=== PATIENT | male | born 1930 | race Caucasian/White ===

== ENCOUNTER 2016-10-20 14:25 | Inpatient (IN) ==
[2016-10-20] MEDS ORDERED: DILTIAZEM 50 MG/10 ML VIAL IV STA (15:15)
--- NOTE | 2016-10-20 15:23 | Emergency Department Note ---
Prabhakar Sharma Brooke, am scribing for, and in the presence of, Blake Mejia MD 15:18 . Jackie Sharma James D, MD, personally performed the services described in this documentation, ascribed by Deja Radford in my presence, and it is both accurate and complete 521 . Arrival - Arrival Chief Complaint: Arrhythmia/Palpitations Stated Complaint: heart ED Nursing Triage Note: family reports pt feels like heart is racing and just not feeling well. recently had meds changed around because hr was out of rhythm Mode of Arrival: Wheelchair Limitations: No Limitations Source: Patient, Significant other (), RN Notes Reviewed Time Seen by Provider: 10/20/16 15:10 - History of Present Illness HPI Narrative: Patient is a 86 year old male who presents to the ED with c/o heart racing that started this morning. Patient is a poor historian. says Patient was getting ready for voodoo this morning and said that he felt weak. says Dr. Mittal told them to discontinue the Lisinopril and to half the dose on the Metoprolol. Patient has not been complaining of any chest pain but has been short of breath. Patient has an appointment with Dr. Rodriguez on October 30. Patient has PMHx of HTN, Afib, and dementia. Onset (ago): hour(s) (8-10) Allergies/Adverse Reactions: Allergies Allergy/AdvReac Type Severity Reaction Status Date / Time No Known Allergies Allergy Unverified 10/20/16 14:59 Home Medications: Home Medications Medication Instructions Recorded Confirmed Type ACETAMIN/diphenhydrAMIN 500-25 2 tablet PO BEDTIME 10/20/16 10/20/16 History [Tylenol PM] Aspirin [Ecotrin] 81 mg PO DAILY 10/20/16 10/20/16 History Atorvastatin [Lipitor] 10 mg PO DAILY 10/20/16 10/20/16 History Cyanocobalamin Inj [Vitamin B12 1,000 mcg IM Q30D 10/20/16 10/20/16 History Inj] Dabigatran [Pradaxa] 150 mg PO BID 10/20/16 10/20/16 History Levothyroxine Tab [Synthroid Tab] 75 mcg PO DAILY 10/20/16 10/20/16 History Memantine [Namenda] 10 mg PO BID 10/20/16 10/20/16 History Metoprolol Tartrate Tab [Lopressor 25 mg PO BEDTIME 10/20/16 10/20/16 History Tab] Metoprolol Tartrate Tab [Lopressor 25 mg PO QAM 10/20/16 10/20/16 History Tab] [place]-3S/Dha/Epa/Fish Oil [Fish 1 each PO DAILY 10/20/16 10/20/16 History Oil 1,200 mg Softgel] Rivastigmine Tartrate 1.5 mg PO BID 10/20/16 10/20/16 History [Rivastigmine] Tamsulosin HCl 0.4 mg PO DAILY 10/20/16 10/20/16 History Timolol 0.5% Oph Soln [Timoptic 1 drop BOTH EYES DAILY 10/20/16 10/20/16 History 0.5%] Review of System - Review of System 12 point system: reviewed and no additional remarkable complaints except as stated - Review of System Constitutional: Absent: fever Respiratory: Present: other (SOB). Absent: respiratory distress Cardiovascular: Present: palpitations (racing). Absent: chest pain Skin: Absent: rash Neurological: Present: weakness (generalized) Medical,Surgical,& Family Hx - Medical History Cardio: History of: Cardiac Dysrhythmia (a-fib), Hypertension Neurology: History of: Dementia - Social History Smoking Status: Never smoker Exam Vital Signs: Vital Signs Temperature 97.4 F L 10/20/16 14:53 Pulse Rate 121 H 10/20/16 14:53 Respiratory Rate 20 10/20/16 14:53 Blood Pressure 125/61 10/20/16 14:53 O2 Sat by Pulse Oximetry 95 10/20/16 14:53 GENERAL: This is a chronically ill-appearing white male in no apparent distress. VITAL SIGNS: Reviewed HEENT: Head is atraumatic and normocephalic. Pupils are equal round react to light. Extraocular movements are intact. Oropharynx is benign with moist mucous membranes. NECK: Neck is soft and supple without tenderness. There are no masses. There is no lymphadenopathy. LUNGS: Lungs are clear to auscultation. Chest rises symmetrically. There is no chest wall tenderness. CV: Heart is irregularly irregular with rapid rate, without murmurs rubs or gallops. ABDOMEN: Abdomen is soft, nontender to palpation. There are no abdominal abnormal masses palpated. There is no organomegaly. Bowel sounds are present and active. SKIN: Skin is warm and dry. No rash. EXTREMITIES: Patient has full range of motion without tenderness. There is no pedal edema. NEUROLOGIC: Awake and alert. Cranial nerves II through XII are grossly intact. Motor is 4 over 5 in all extremities bilaterally. Course Course Narrative: Patient was started on Cardizem bolus and infusion while in the emergency department. Results - Labs CBC & BMP: 10/20/16 15:22 Lab Results: I have reviewed the patients labs - EKG EKG results: interpreted by ERMD - Impressions EKG: Atrial fib with RVR, rate 146, nonspecific ST-T wave changes. - Diagnostic Findings Procedure: Chest x-ray: image reviewed by me (Increased pulmonary markings bilaterally. Small left pleural effusion.) Disposition Clinical Impression: Atrial fibrillation with RVR, Essential hypertension, Sick sinus syndrome, Dementia Case discussed with: patient, patient's family Disposition: Still a Patient Condition: Stable Time of Disposition: 15:48
[2016-10-20] MEDS ORDERED: DILTIAZEM 100 MG VIAL.ADD IV ONE (15:28)
[2016-10-20] MEDS ORDERED: SODIUM CHLORIDE 0.9% 100 ML IV ONE (15:28)
[2016-10-20] MEDS ORDERED: DILTIAZEM 50 MG/10 ML VIAL IV ONE (15:28)
[2016-10-20 15:32] LABS: Basophils % 0.3 % (0.0-0.8); Eosinophils # 0.2 10*3/uL (0.0-0.87); Eosinophils % 1.6 % (0.00-10.9); Hematocrit 35.3 VOL% (42.0-52.0); Hemoglobin 11.7 GM/DL (14.0-18.0); Immature Granulocytes % 0.4 %; Immature Granulocytes Absolute 0.04 #; Lymphocytes # 2.8 10*3/uL (1.4-4.0); Lymphocytes % 28.5 % (21.2-54.2); Mean Corpuscular HGB Conc 33.1 GM/DL (32-36); Mean Corpuscular Hemoglobin 34 PG (27-34); Mean Corpuscular Volume 102.6 FL (87-102); Mean Platelet Volume 9.6 FL (9.6-12.0); Monocytes # 0.5 10*3/uL (0.11-0.8); Monocytes % 5.3 % (1.7-12.7); Neutrophils # 6.3 10*3/uL (1.4-7.4); Neutrophils % 63.9 % (38.7-73.9); Platelet Count 200 T/CUMM (130-400); Red Blood Count 3.44 MC/CUMM (3.8-5.5); White Blood Count 9.9 T/CUMM (4-12)
[2016-10-20] MEDS: DILTIAZEM INJ 100 MG in SODIUM CHLORIDE 0.9% 100 ML IV SCH ×3 (15:40→22:48)
--- NOTE | 2016-10-20 15:40 | XRay Report ---
Portable chest Date: 10/20/2016 Clinical history: Shortness of breath Comparison: 05/01/2014 Technique: Portable AP sitting chest Findings: The heart is minimally enlarged with calcification in the aortic knob. Persistent relative elevation of the right hemidiaphragm with chronic scarring. Residual diffuse density at the left lung base. Stable mediastinum with degenerative changes. Impression: Residual scarring in the lungs with atelectasis/edema/infiltration at the left lung base with small left pleural effusion. PROCEDURE INTERPRETED AT [facility] DEPARTMENT OF RADIOLOGY Final Report Signed by: Dr. Diana Flores
[2016-10-20 15:43] LABS: INR 1.3; Partial Thromboplastin Time 37.6 SECS (0-40)
[2016-10-20 16:15] LABS: Free T4 (Free Thyroxine) 1.5 NG/DL (0.76-1.46); Magnesium 2.4 MG/DL (1.8-2.4)
[2016-10-20 16:20] LABS: Albumin 3.1 G/DL (3.4-5.0); Bilirubin,Total 0.8 MG/DL (0.2-1.0); Calcium 8.7 MG/DL (8.5-10.1); Osmolality,Calculated 273.8 MOS/KG (273-304); Potassium 4.2 MMOL/L (3.5-5.1); Thyroid Stimulating Hormone 1.56 uIU/ml (0.358-3.74); Total Protein 7.3 G/DL (6.4-8.3); Troponin I Only 0.017 NG/ML (0.00-0.045)
--- NOTE | 2016-10-20 18:57 | Cardiology History & Physical ---
History of Present Illness History of present illness: Cardiology history and physical 86-year-old man was getting ready for yazdanism today when he became weak and short of breath and felt a popping sensation in his chest. called the home health nurse. She reports his heart rate was 150 and he came to the ER for evaluation. The patient does have chronic atrial fibrillation and his pulse was 140 in the ER. He has been given a bolus of Cardizem and placed on a Cardizem infusion. The chest x-ray shows cardiomegaly with a calcified aortic knob with a elevated right hemidiaphragm which is chronic and atelectasis and a small effusion left base. No chest pain. The patient has chronic atrial fibrillation and was seen by Dr. Rodriguez October with bradycardia and hypotension. At that time he has heart rate was in the 40s and his blood pressure was 92/50. His metoprolol dose was decreased to 25 mg twice daily. He now returns today with atrial fib and ventricular rate of 140-150. He takes Pradaxa for chronic anticoagulation. He has had no Pradaxa today. He does have chronic hypertension. No history of stroke. No history of diabetes. 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 He does have a history of prostate cancer. He also history of kidney stones. He has a history of pernicious anemia. Hemoglobin 11.7 MCV 103 today. 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 Status post LAD stent September 29, 2005. He had a normal exercise Cardiolite stress test March 14, 2014 EF 57%. 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 John Barfield. The patient has dementia and is getting more forgetful and confused but he is always quite pleasant. The patient lives in [place] with his Rosemarie. His daughter Ada is here in the emergency room and lives in [facility]. Initial lab data White count 9.9 hemoglobin 11.7 hematocrit 35.3 MCV 103 INR 1.3 Pro time 14.0 Sodium 137 potassium 4.2 chloride 103 CO2 27 free T4 1.50 troponin 0.017 Blood pressure 118/70 pulse is atrial fib and rate 120-130 O2 sat 95% on 2 L cannula Vital arcus. No xanthelasma. Hard of hearing but quite pleasant. Left carotid bruit. Irregular with him. Soft systolic murmur. Decreased breath sounds but clear. Abdomen soft benign. Femoral pulses are 2+ with faint bilateral bruits distal pulses 1+ no edema Impression Chronic atrial fibrillation with symptomatic tachycardia and bradycardia components. Metoprolol dose was decreased October 30, 2016 in the office by Dr. Rodriguez for slow heart rate in the 40s and blood pressure 90/50. Today his pulse is 140-150 and he is short of breath and weak. Patient needs a VVI pacemaker for backup rate support and a beta-bertrand to control his ventricular high rates. This has been discussed with the patient and with his Rosemarie and with his daughter Ada. All questions answered and they agree to proceed tomorrow Chronic hypertension Dementia Pernicious anemia Status post inferior NV with RCA stent November 15, 2005 Status post LAD stent September 29, 2005 Normal exercise cardiac stress test March 14, 2014 EF 57% GE reflux Chronic anticoagulation with Pradaxa. 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 John Barfield. Plan Admit to telemetry Continue IV Cardizem and watch rhythm closely VVI pacemaker tomorrow Holding Pradaxa Echo Doppler Findings and plan discussed with patient and his Rosemarie and his daughter Ada. All questions answered. They agree to proceed as outlined. Home Medications Medication Instructions Recorded Confirmed Type ACETAMIN/diphenhydrAMIN 500-25 2 tablet PO BEDTIME 10/20/16 10/20/16 History [Tylenol PM] Aspirin [Ecotrin] 81 mg PO DAILY 10/20/16 10/20/16 History Atorvastatin [Lipitor] 10 mg PO DAILY 10/20/16 10/20/16 History Cyanocobalamin Inj [Vitamin B12 1,000 mcg IM Q30D 10/20/16 10/20/16 History Inj] Dabigatran [Pradaxa] 150 mg PO BID 10/20/16 10/20/16 History Levothyroxine Tab [Synthroid Tab] 75 mcg PO DAILY 10/20/16 10/20/16 History Memantine [Namenda] 10 mg PO BID 10/20/16 10/20/16 History Metoprolol Tartrate Tab [Lopressor 25 mg PO BEDTIME 10/20/16 10/20/16 History Tab] Metoprolol Tartrate Tab [Lopressor 25 mg PO QAM 10/20/16 10/20/16 History Tab] [place]-3S/Dha/Epa/Fish Oil [Fish 1 each PO DAILY 10/20/16 10/20/16 History Oil 1,200 mg Softgel] Rivastigmine Tartrate 1.5 mg PO BID 10/20/16 10/20/16 History [Rivastigmine] Tamsulosin HCl 0.4 mg PO DAILY 10/20/16 10/20/16 History Timolol 0.5% Oph Soln [Timoptic 1 drop BOTH EYES DAILY 10/20/16 10/20/16 History 0.5%] Allergies Allergy/AdvReac Type Severity Reaction Status Date / Time No Known Allergies Allergy Unverified 10/20/16 14:59 Medical,Surgical,& Family Hx - Medical History Cardio: History of: Cardiac Dysrhythmia (a-fib), Hypertension Neurology: History of: Dementia - Social History Smoking Status: Never smoker Cardiology Physical Exam - Constitutional Vitals: Vital Signs Temp Pulse Resp BP Pulse Ox 97.4 F L 133 H 20 125/61 95 10/20/16 14:53 10/20/16 16:30 10/20/16 14:53 10/20/16 14:53 10/20/16 14:53 Result/EKG - Labs CBC & BMP: 10/20/16 15:22 10/20/16 15:22
[2016-10-20] MEDS ORDERED: MAGNESIUM SULF RIDER 2 GM in PREMIX 1 EACH IV PRN (19:19)
[2016-10-20] MEDS ORDERED: MAGNESIUM SULF RIDER 4 GM in PREMIX 1 EACH IV PRN (19:19)
[2016-10-20] MEDS: ENOXAPARIN 40 MG/0.4 ML SYRINGE SUBCUT SCH (22:28)
[2016-10-20] MEDS: diphenhydrAMINE CAP 25 MG CAPSULE PO SCH (22:28)
[2016-10-20] MEDS: RIVASTIGMINE 1.5 MG CAPSULE PO SCH (22:28)
[2016-10-20] MEDS: ACETAMINOPHEN 500 MG TABLET PO SCH (22:29)
[2016-10-20] MEDS: METOPROLOL TARTRATE 25 MG TABLET PO SCH (22:29)
[2016-10-20] MEDS: MEMANTINE 10 MG TABLET PO SCH (22:29)
[2016-10-20] MEDS: SODIUM CHLORIDE 0.9% 1,000 ML IV SCH (22:31)
[2016-10-21] MEDS: LEVOTHYROXINE 75 MCG TABLET PO SCH (06:09)
[2016-10-21] MEDS: TIMOLOL 0.5% OPH SOLN 5 ML BOTTLE BOTH EYES SCH (10:12)
[2016-10-21] MEDS: ATORVASTATIN 10 MG TABLET PO SCH (10:12)
[2016-10-21] MEDS: RIVASTIGMINE 1.5 MG CAPSULE PO SCH ×2 (10:12→21:37)
[2016-10-21] MEDS: ASPIRIN EC 81 MG TABLET PO SCH (10:13)
[2016-10-21] MEDS: MEMANTINE 10 MG TABLET PO SCH ×2 (10:13→21:37)
[2016-10-21] MEDS: OMEGA 3 ACID ETHYL ESTERS 1 GM CAPSULE PO SCH (10:13)
[2016-10-21] MEDS: TAMSULOSIN 0.4 MG CAPSULE PO SCH (10:13)
[2016-10-21] MEDS: SODIUM CHLORIDE 0.9% 1,000 ML IV SCH (15:56)
--- NOTE | 2016-10-21 17:02 | Cardiology Progress Note ---
Assessment and Plan (1) Atrial fibrillation with RVR Status: Chronic Assessment and plan: This is a chronic issue with episodes of RVR. No RVR is managed she has problems with bradycardia. 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 The patient is a single- chamber pacemaker to manage his bradycardia so he is tachycardic and be managed. Current Visit: Yes (3) Tachy-madhavi syndrome Status: Acute Assessment and plan: As noted is having issues with tachycardia bradycardia bradycardia. He needs pacemaker measured bradycardia so he is tachycardic and be managed with appropriate medications. As discussed pacemaker with the patient his . Current Visit: Yes (4) Essential hypertension Status: Chronic Assessment and plan: Stable today on present medications. Current Visit: No (5) Dementia Status: Chronic Assessment and plan: Chronic stable issue. Current Visit: No (6) History of chronic atrial fibrillation Status: Chronic Current Visit: Yes (7) Hyperlipidemia Status: Chronic Current Visit: Yes (8) Hypothyroid Status: Acute Current Visit: Yes Cardiology - PN: Subj Interval history: The patient's had chronic atrial fibrillation with sick sinus syndrome with tachybradycardia syndrome. He has issues of to treat his tachycardia that he has marked bradycardia secondary to medications. This is now become a significant issue for the patient. He needs a single-chamber pacemaker implantation. Today he has no complaints. He denies chest pain shortness of breath. He is had no fever or chills. His vital signs in general been stable. He has been on Pradaxa but this is been held. He is presently on subcutaneous Lovenox every 24 hours which we will hold. He is otherwise stable and his lab work is stable as well. I discussed pacemaker implantation with the patient and his . The device will be a single-chamber system hopefully and plan for left size is his right nondominant. I discussed indication procedure as well as how would be carried out of the risk. I discussed pacemaker implantation procedure with the patient and available family. I reviewed with them the indications of the procedure as well as the basis of how the procedure itself would be carried out. I also reviewed with them the possible risks which include but not necessarily limited to surgical site bruising pain swelling or pocket hematoma that may require surgical evacuation. Discussed that the pain, swelling, bruising could be significant. Also discussed the possibility of surgical site or pocket infection that may require oral or IV antibiotics or even the possibility of surgical drainage of the pocket or even removal of the pacemaker system. Also discussed the possibility of hemothorax or pneumothorax that may require chest tube and possible blood transfusion. Also discussed the possibility of myocardial perforation that may lead to pericardial tamponade and the need for pericardiocentesis and blood transfusion. They voice understanding and agree to proceed. Exam (Progress Note) - Constitutional Vitals: Period Temp Pulse Resp BP Sys/Villanueva Pulse Ox Last 24 Hr 96.8 F-98.8 F 99-120 17-20 83-142/47-75 89-98 Exam: General appearance: Elderly man with normal weight, no acute distress Head exam: normal inspection, atraumatic Eye exam: Pupils are equal and reactive. EOMI. There is no trauma. Ear exam: Anatomically normal. Decreased auditory acuity to conversation. Oral exam: No significant oral lesions. Neck exam: normal inspection no JVD. No carotid bruit. Trachea is in midline. Respiratory exam: clear to auscultation bilaterally posteriorly and anteriorly with good air movement. A few crackles at the bases. Cardiovascular exam: Irregular rhythm with 1/6 systolic murmur. No precordial lift. No bruits over the major arteries. Chest wall/torso: Anatomically normal. No tenderness, deformity Peripheral Pulses: 2+ throughout. GI/Abdominal exam: normal bowel sounds, soft and nontender, no abdominal bruits or pulsatile masses. Musculoskeletal/Extremities exam: normal inspection without edema or cyanosis. Neurological exam: alert, oriented X3. There is no gross neurologic deficits. Psychiatric exam: normal affect, normal mood. Cognitive function is grossly intact. Skin exam: normal color, warm. No rashes or other skin lesions. Result/EKG - Labs CBC & BMP: 10/20/16 15:22 10/20/16 15:22 Lab Results: I have reviewed the past 24 hour labs - Impressions Impressions: Telemetry with atrial fibrillation controlled ventricular response at the time.
--- NOTE | 2016-10-21 20:59 | ECHO Report ---
Jason Hamilton Exam Date: 10/21/2016 11:09 Referring Physician: Technologist: Rosio Lee Age: 86 Ht (in): 70 Wt (lb): 190 Gender: M Exam Location: [facility] Echo Indications: a fib, HTN, sick sinus syndrome BP: 83 / 47 HR: 102 Rhythm: Atrial fibrillation Technical Quality: Technically difficult study IMPRESSIONS 1. Limited study. 2. Left ventricle is normal size and mild to moderate concentric left ventricular hypertrophy. Ejection fraction is 50-55%. 3. Mildly dilated left atrium. 4. Right-sided chambers are probably normal size. 5. Mitral valve is somewhat sclerotic with mitral and calcification probably small area of prolapse. There is mild to moderate mitral regurgitation. 6. Aortic valve is sclerotic tricuspid structure with mild regurgitation. 7. Moderate tricuspid regurgitation. 8. Mild to moderately elevated right-sided pressures. 9. Mild pulmonic valve regurgitation. MEASUREMENTS (Male / Female) Normal Values 2D ECHO LV Diastolic Diameter PLAX 3.2 cm 4.2 - 5.9 / 3.9 - 5.3 cm LV Systolic Diameter PLAX 2.6 cm LV Fractional Shortening PLAX 18.0 % IVS Diastolic Thickness 1.5 cm 0.6 - 1.0 / 0.6 - 0.9 cm LVPW Diastolic Thickness 1.4 cm 0.6 - 1.0 / 0.6 - 0.9 cm RV Internal Dim ED PLAX 3.3 cm Aortic Root Diameter 3.0 cm LA Systolic Diameter LX 4.6 cm 3.0 - 4.0 / 2.7 - 3.8 cm DOPPLER TR Peak Velocity 331.0 cm/s TR Peak Gradient 43.8 mmHg FINDINGS Left Ventricle Left ventricle is normal size mild to moderate concentric left ventricular hypertrophy. Left ventricular ejection fraction is estimated at 50-55 %. Right Ventricle Normal right ventricular size. Right Atrium Normal right atrial size. Left Atrium Mildly increased left atrial diameter. Mitral Valve Mild - moderate mitral valve sclerosis and mitral annular calcification. Mild-moderate mitral valve regurgitation. There appears to be a small area of prolapse. Aortic Valve Aortic valve is probably a tricuspid structure with mild sclerosis. Mild aortic valve regurgitation. Tricuspid Valve Morphologically normal tricuspid valve. Moderate tricuspid valve regurgitation. Tricuspid regurgitation velocities suggest a PAP of 49- 54 mmHg Pulmonic Valve Pulmonic valve not well visualized. Mild pulmonary valve regurgitation. Pericardium No pericardial effusion. Aorta Normal size aortic root and proximal ascending aorta. Kenneth Ibrahim MD (Electronically Signed) Final Date: 21 October 2016 20:58
[2016-10-21] MEDS: METOPROLOL TARTRATE 25 MG TABLET PO SCH (21:37)
[2016-10-21] MEDS: diphenhydrAMINE CAP 25 MG CAPSULE PO SCH (21:37)
[2016-10-21] MEDS: ENOXAPARIN 40 MG/0.4 ML SYRINGE SUBCUT SCH (21:37)
[2016-10-21] MEDS: ACETAMINOPHEN 500 MG TABLET PO SCH (21:37)
[2016-10-22] MEDS: LEVOTHYROXINE 75 MCG TABLET PO SCH (06:02)
[2016-10-22 06:12] LABS: Basophils % 0.5 % (0.0-0.8); Eosinophils # 0.2 10*3/uL (0.0-0.87); Eosinophils % 2.8 % (0.00-10.9); Hematocrit 28.3 VOL% (42.0-52.0); Hemoglobin 9.5 GM/DL (14.0-18.0); Immature Granulocytes % 0.4 %; Immature Granulocytes Absolute 0.03 #; Lymphocytes # 2.7 10*3/uL (1.4-4.0); Lymphocytes % 33.9 % (21.2-54.2); Mean Corpuscular HGB Conc 33.6 GM/DL (32-36); Mean Corpuscular Hemoglobin 35 PG (27-34); Mean Corpuscular Volume 102.9 FL (87-102); Monocytes # 0.6 10*3/uL (0.11-0.8); Monocytes % 7.5 % (1.7-12.7); Neutrophils # 4.4 10*3/uL (1.4-7.4); Neutrophils % 54.9 % (38.7-73.9); Platelet Count 187 T/CUMM (130-400); Red Blood Count 2.75 MC/CUMM (3.8-5.5); Red Cell Distribution Width 13.9 % (9.3-17.3)
[2016-10-22 06:36] LABS: Calcium 8.4 MG/DL (8.5-10.1); Magnesium 2.2 MG/DL (1.8-2.4); Osmolality,Calculated 278.4 MOS/KG (273-304); Potassium 3.7 MMOL/L (3.5-5.1)
[2016-10-22] MEDS ORDERED: diphenhydrAMINE CAP 25 MG CAPSULE PO ONE (07:00)
[2016-10-22] MEDS ORDERED: ceFAZolin 1,000 MG VIAL IRRIG ONE (07:00)
[2016-10-22] MEDS ORDERED: DIAZEPAM 5 MG TABLET PO ONE (07:00)
--- NOTE | 2016-10-22 07:04 | History and Physical Update ---
Sedation H&P Update - History and Physical H&P was reviewed, the patient examined and there: are no changes in the patients condition since last H&P was completed. - Dictation Physical: refer to H&P completed by admitting physician - Physical Exam Mental Status: alert and oriented Heart: other (irregular rhythm with atrial fibrillation) Lung: clear to auscultation Abdomen: within normal limits Vitals: within normal limits History and Physical Changes: None - Sedation Plan for Sedation: moderate Patient Consent: Procedure disscussed with patient and patinet has consented., Risks and benefits were discussed with patient,including infection,, bleeding, injury to surrounding structures, seizure, temporary nerve, Patient understands and accepts potential risks/benefits and agrees to, proceed. ASA Class: III Airway Assessment: Class III: Soft palate, base of uvula visible
--- NOTE | 2016-10-22 07:10 | Cardiology Progress Note ---
Assessment and Plan (1) Atrial fibrillation with RVR Status: Chronic Assessment and plan: This is a chronic issue with episodes of RVR. His increased rates this time because of decrease in his medications because of his bradycardia. 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 He is for single-chamber pacemaker today. Current Visit: Yes (3) Tachy-madhavi syndrome Status: Acute Assessment and plan: Chronic recurrent issue for which we'll plan on pacemaker today so that we can treat his tachycardia. This also allowed us to maintain his rate without causing bradycardia symptomatology. Current Visit: Yes (4) Essential hypertension Status: Chronic Assessment and plan: His blood pressures are low. Current Visit: No (5) Dementia Status: Chronic Assessment and plan: Chronic stable issue. Current Visit: No (6) History of chronic atrial fibrillation Status: Chronic Assessment and plan: Chronic issues discussed above. Current Visit: Yes (7) Hyperlipidemia Status: Chronic Assessment and plan: Statin drug. Current Visit: Yes (8) Hypothyroid Status: Acute Assessment and plan: Stable. Current Visit: Yes (9) Pernicious anemia Status: Chronic Assessment and plan: His hematocrit/hemoglobin had dropped and we will need to check stool for blood. Certainly this may be exacerbated by his pernicious anemia. Current Visit: Yes Cardiology - PN: Subj Interval history: The patient with chronic atrial fibrillation and sick sinus syndrome and tachybradycardia syndrome. Patient's had issues with controlling his tachycardia because of medication-induced bradycardia with multiple drugs. The patient is in need for single-chamber pacemaker as discussed yesterday and I reviewed this again with him today. He agrees to proceed. The patient this morning has no complaints. He is lying flat in bed without any shortness of breath or complaints. He is had no fever or chills. Size of been stable. His rhythm remains atrial fibrillation with increased ventricular response. His lab work this morning reveals his hematocrit is now dropped to 28.3. He has macrocytic hyperchromic indices. He apparently has pernicious anemia and is on B12 injections. Reviewing his chart that is as low as his hematocrit is been in dropped from 35.3 20.3 over 2 days with his hemoglobin decreasing from 11.7-9.5 and 2 days. His chemistries are stable. Exam (Progress Note) - Constitutional Vitals: Period Temp Pulse Resp BP Sys/Villanueva Pulse Ox Last 24 Hr 97.0 F-100.9 F 95-116 16-18 87-132/42-71 89-98 Exam: General appearance: Elderly man with normal weight, no acute distress, flat in bed. Head exam: normal inspection, atraumatic Eye exam: Pupils are equal and reactive. EOMI. There is no trauma. Ear exam: Anatomically normal. Decreased auditory acuity to conversation. Oral exam: No significant oral lesions. Neck exam: normal inspection no JVD. No carotid bruit. Trachea is in midline. Respiratory exam: clear to auscultation bilaterally posteriorly and anteriorly with good air movement. A few crackles at the bases. Cardiovascular exam: Irregular rhythm with 1-2/6 systolic murmur. No precordial lift. No bruits over the major arteries. Chest wall/torso: Anatomically normal. No tenderness, deformity Peripheral Pulses: 2+ throughout. GI/Abdominal exam: normal bowel sounds, soft and nontender, no abdominal bruits or pulsatile masses. Musculoskeletal/Extremities exam: normal inspection without edema or cyanosis. Neurological exam: alert, oriented X3. There is no gross neurologic deficits. Psychiatric exam: normal affect, normal mood. Cognitive function is grossly intact. Skin exam: normal color, warm. No rashes or other skin lesions. Result/EKG - Labs CBC & BMP: 10/22/16 05:17 10/22/16 05:17 Lab Results: I have reviewed the past 24 hour labs Labs: Laboratory Results - last 24 hr 10/22/16 10/22/16 05:17 05:17 WBC 8.0 RBC 2.75 L D Hgb 9.5 L D Hct 28.3 L MCV 102.9 H MCH 35 H MCHC 33.6 RDW 13.9 Plt Count 187 MPV 10.0 Neut % (Auto) 54.9 Lymph % (Auto) 33.9 [place] % (Auto) 7.5 Eos % (Auto) 2.8 Baso % (Auto) 0.5 Neut # (Auto) 4.4 Lymph # (Auto) 2.7 [place] # (Auto) 0.6 Eos # (Auto) 0.2 Baso # (Auto) 0.0 Immature Gran % 0.4 Nucleated RBC % 0.0 Immature Gran # 0.03 Nucleated RBCs # 0.00 Sodium 140 Potassium 3.7 Chloride 105 Carbon Dioxide 25 Anion Gap 13.7 BUN 16 Creatinine 1.00 GFR Calculation 81 BUN/Creatinine Ratio 16.00 Glucose 85 Calculated Osmolality 278.4 Calcium 8.4 L Magnesium 2.2 - Impressions Impressions: Telemetry with atrial fibrillation with increased ventricular response.
[2016-10-22 07:36] LABS: Basophils % 0.4 % (0.0-0.8); Eosinophils # 0.2 10*3/uL (0.0-0.87); Eosinophils % 2.7 % (0.00-10.9); Hematocrit 29.1 VOL% (42.0-52.0); Hemoglobin 9.7 GM/DL (14.0-18.0); Immature Granulocytes % 0.4 %; Immature Granulocytes Absolute 0.03 #; Lymphocytes # 2.5 10*3/uL (1.4-4.0); Lymphocytes % 31.8 % (21.2-54.2); Mean Corpuscular HGB Conc 33.3 GM/DL (32-36); Mean Corpuscular Hemoglobin 34 PG (27-34); Mean Corpuscular Volume 102.1 FL (87-102); Mean Platelet Volume 9.3 FL (9.6-12.0); Monocytes # 0.5 10*3/uL (0.11-0.8); Monocytes % 6.7 % (1.7-12.7); Neutrophils # 4.6 10*3/uL (1.4-7.4); Platelet Count 178 T/CUMM (130-400); Red Blood Count 2.85 MC/CUMM (3.8-5.5); Red Cell Distribution Width 14.1 % (9.3-17.3); White Blood Count 7.9 T/CUMM (4-12)
--- NOTE | 2016-10-22 08:22 | EKG Report ---
Stationary ECG Study [facility] ER Test Date: 10/20/2016 3:05:25 PM Pat Name: MIRZA JAEGER Department: Room: 288 Gender: M Blast Setter: : 1930 Requested by: Blake Baldwin Order Number: [id number] Mathew MD: DWAYNE PINA Intervals [place] Rate: 146 P: 999 RI: 0 QRS: 37 QRSD: 88 T: 44 QT: 276 QTc: 360 Interpretive Statements ATRIAL FIBRILLATION WITH RAPID VENTRICULAR RESPONSE ABNORMAL RHYTHM ECG Electronically Signed On 10-23-16 12:32:35 CDT by DWAYNE PINA [email or web address]
[2016-10-22 08:30] LABS: Folate 23.1 NG/ML (5.4-24.0); Vitamin B12 757 PG/ML (211-911)
[2016-10-22 09:27] LABS: Sedimentation Rate-Westergren 101 MM/HR (0-20)
[2016-10-22] MEDS: SODIUM CHLORIDE 0.9% 1,000 ML IV SCH (10:47)
[2016-10-22] MEDS ORDERED: LIDOCAINE 1% 20 ML VIAL ONE (12:59)
[2016-10-22] MEDS ORDERED: ceFAZolin 1,000 MG VIAL ONE (13:00)
[2016-10-22] MEDS ORDERED: fentaNYL 100 MCG/2 ML VIAL ONE (13:15)
[2016-10-22] MEDS ORDERED: MIDAZOLAM 2 MG/2 ML VIAL ONE (13:15)
[2016-10-22] MEDS ORDERED: TISSUE ADHESIVE 1 EACH APPLICATOR TOP ONE (14:16)
[2016-10-22] MEDS ORDERED: ACETAMINOPHEN 325 MG TABLET PO PRN (14:33)
--- NOTE | 2016-10-22 14:33 | Operative Note ---
Date of procedure: 10/22/16 Procedure Preformed: Single-chamber pacemaker system implantation from left chest. Surgeon / Physician: Kenneth Ibrahim Station Manager: Jessi Edmonds Post-op diagnosis: same Findings: 6 sinus syndrome or chronic atrial fibrillation and tachybradycardia syndrome. Patient is a successful pacemaker plantation. See full report for details. Specimens: none sent Estimated blood loss: minimal Condition: stable Anesthesia: local, conscious sedation Disposition: floor
--- NOTE | 2016-10-22 14:46 | Cardiac Pacemaker ---
- Preoperative diagnosis Date of Procedure:: 10/22/16 Preoperative Diagnosis: Documented nonreversible symptomatic bradycardia due to , sinus node dysfunction Pre-op Diagnosis: Patient with sick sinus syndrome and documented tachybradycardia syndrome that limits her medical therapy. The patient with chronic atrial fibrillation now. Post-op diagnosis: same Procedure: History: 86-year-old man who is had progressive tachybradycardia syndrome. His issues prevent him from taking certain medications because of induced bradycardia. He is chronic atrial fibrillation. Pre-Op diagnosis: Sick sinus syndrome now a chronic atrial fibrillation tachybradycardia syndrome that is symptomatic and limits therapy especially medications. Postop diagnosis: Same: Successful pacemaker implantation. Procedures: 1. Left subclavian venogram. 2. Fluoroscopic positioning of right ventricular lead. 3. Threshold testing of right ventricular lead. 4. Surgical implantation single chamber pacemaker left chest. Contrast: Visipaque 10 ml. Medications: Preoperative Benadryl and Valium given orally. Lidocaine 1% SQ 20 ml; Versed 2 mgms total IVP; fentanyl 100 mcgs total IVP, Ancef 1 gm IVPB, Ancef flush. Estimated blood loss: minimal Sponge count: Correct Pacemaker equipment: 1. Pacemaker generator: Medtronic Advisa SR MRI , model# A3SR01 , serial# [id number] . 2. Ventricular lead: Medtronic model# 5076-58 , serial# [id number] . This is a bipolar active fixation lead. Sensed R-wave is 18.4 mv. At a pulse width of 0.5 ms the threshold is 0.8 volts, current 0.7 mA, resistance 1146 ohms, slew rate 4.0 . Discription of procedure: After informed consent the patient was given preoperative medication. They were then brought to the catheterization laboratory where their upper chest was prepped and draped in the usual sterile fashion. Patient then received IV sedation. Fluoroscopy and cinematography was used to obtain a left subclavian venogram for mapping. Local anesthesia with lidocaine below the left clavicle was obtained. Sharp dissection with scalpel was then used to cut through the skin and subcutaneous tissue to the pectoralis fascia. The [place]zen[place]ums scissors were then used to create a superior and inferior pocket with also using blunt dissection. Antibiotic sponge was placed in the pocket at this time. At this point using fluoroscopy and the subclavian venogram the subclavian vein was cannulated using needlestick and guidewires. Sheath was then placed into the vein. Through the sheath the ventricular lead was advanced. Sheaths were then peeled away. Under fluoroscopy the right ventricular lead was advanced into the RV outflow track and then positioned into the ventricle into a good position. Thresholds were good and they remained stable. The lead was then sutured in position using 2-0 Ethibond with 2 stitches on each sleeve. Antibiotic sponge was removed from the pocket and the pocket irrigated with antibiotic solution. Stylette was completely removed from the lead and final thresholds were measured that remained stable. Pacemaker generator was then connected to the ventricular lead and the header set screw was tightened and tugged on demonstrating it was well seated. Counts were correct. Pacemaker generator was then placed into the pocket and sutured in position with one stitch of 2-0 Ethibond. Pacemaker pocket was then closed using 2 layers of 3-0 Vicryl and one subreticular layer of 4-0 Vicryl. Exofin was used to seal the wound. Patient, tolerated the procedure well and there were no immediate complications. Patient was returned to their room. Implants: See above Anesthesia: local, moderate conscious sedation Surgeon / Physician: Kenneth Ibrahim Supreme Court Judge: other (Jessi AMBROSE) Estimated blood loss: minimal Specimens: none sent Condition: stable Disposition: floor - Medications / Follow-up
--- NOTE | 2016-10-22 15:27 | XRay Report ---
Portable chest Date: 10/22/2016 Clinical history: Lead placement Comparison: 10/20/2016 Technique: Portable AP sitting chest Findings: The heart is minimally enlarged with interval insertion of left subclavian ventricular permanent pacemaker. No pneumothorax. Persistent diffuse parenchymal findings at the lung bases with minimal relative elevation of the right hemidiaphragm. Smaller left pleural effusion. Interstitial carotid artery calcification noted. Degenerative changes noted with chronic deformity of the shoulders. Impression: Interval insertion of left subclavian ventricular pacemaker with no pneumothorax. Residual atelectasis/edema of the lung bases with persistent relative elevation of the right hemidiaphragm and smaller left pleural effusion. Carotid artery calcification. PROCEDURE INTERPRETED AT [facility] DEPARTMENT OF RADIOLOGY Final Report Signed by: Dr. Diana Flores
[2016-10-22] MEDS: RIVASTIGMINE 1.5 MG CAPSULE PO SCH ×2 (16:19→21:03)
[2016-10-22] MEDS: TAMSULOSIN 0.4 MG CAPSULE PO SCH (16:19)
[2016-10-22] MEDS: OMEGA 3 ACID ETHYL ESTERS 1 GM CAPSULE PO SCH (16:19)
[2016-10-22] MEDS: ATORVASTATIN 10 MG TABLET PO SCH (16:19)
[2016-10-22] MEDS: MEMANTINE 10 MG TABLET PO SCH ×2 (16:19→21:06)
[2016-10-22] MEDS: ASPIRIN EC 81 MG TABLET PO SCH (16:19)
[2016-10-22] MEDS: TIMOLOL 0.5% OPH SOLN 5 ML BOTTLE BOTH EYES SCH (16:20)
--- NOTE | 2016-10-22 17:22 | Event Note ---
Patient is doing well post-pacemaker plantation pacer site looks good. Chest x- ray postprocedure is stable.
[2016-10-22] MEDS: METOPROLOL TARTRATE 50 MG TABLET PO SCH (20:58)
[2016-10-22] MEDS: DILTIAZEM CD 180 MG CAPSULE PO SCH (20:59)
[2016-10-22] MEDS: ACETAMINOPHEN 500 MG TABLET PO SCH (21:01)
[2016-10-22] MEDS: diphenhydrAMINE CAP 25 MG CAPSULE PO SCH (21:02)
[2016-10-23 05:47] LABS: Basophils % 0.3 % (0.0-0.8); Eosinophils # 0.3 10*3/uL (0.0-0.87); Eosinophils % 3.5 % (0.00-10.9); Hematocrit 28.7 VOL% (42.0-52.0); Hemoglobin 9.6 GM/DL (14.0-18.0); Immature Granulocytes % 0.5 %; Immature Granulocytes Absolute 0.04 #; Lymphocytes # 3.2 10*3/uL (1.4-4.0); Lymphocytes % 40.6 % (21.2-54.2); Mean Corpuscular HGB Conc 33.4 GM/DL (32-36); Mean Corpuscular Hemoglobin 34 PG (27-34); Mean Corpuscular Volume 100.3 FL (87-102); Monocytes # 0.6 10*3/uL (0.11-0.8); Monocytes % 7.7 % (1.7-12.7); Neutrophils # 3.7 10*3/uL (1.4-7.4); Neutrophils % 47.4 % (38.7-73.9); Platelet Count 180 T/CUMM (130-400); Red Blood Count 2.86 MC/CUMM (3.8-5.5); Red Cell Distribution Width 13.9 % (9.3-17.3); White Blood Count 7.8 T/CUMM (4-12)
[2016-10-23 07:18] LABS: Hemoglobin A1 (Alkaline) 97.5 % (96.5-98.5); Hemoglobin A2 (Alkaline) 2.5 % (1.5-3.5)
[2016-10-23] MEDS: LEVOTHYROXINE 75 MCG TABLET PO SCH (07:54)
--- NOTE | 2016-10-23 08:01 | XRay Report ---
XR chest 2V Indication: Lead placement Comparison: 22 October 2016 Findings: The heart and mediastinum are stable in size and configuration. Pacemaker device is unchanged in position. The pulmonary vascularity is normal in caliber. Lung volumes are increased with prominent bronchial markings. No lung infiltrates, effusions, pneumothorax or other abnormality is demonstrated. Impression: Chronic lung changes. No acute process or significant change. PROCEDURE INTERPRETED AT [facility] DEPARTMENT OF RADIOLOGY Final Report Signed by: Dr. Cristiano Dupont
--- NOTE | 2016-10-23 08:02 | EKG Report ---
Stationary ECG Study [facility] Test Date: 10/23/2016 8:01:37 AM Pat Name: MIRZA JAEGER Department: Room: 288 Gender: M Real Estate Lawyer: RICHY : 1930 Requested by: Kenneth Philippe Order Number: [id number] Reading MD: LORAINE VILLASENOR Intervals [place] Rate: 96 P: 999 [place]: 0 QRS: 23 QRSD: 114 T: 30 QT: 369 QTc: 422 Interpretive Statements ATRIAL FIBRILLATION LOW QRS VOLTAGE IN PRECORDIAL LEADS Electronically Signed On 10-28-16 11:05:07 CDT by LORAINE VILLASENOR [email or web address]
[2016-10-23] MEDS: ASPIRIN EC 81 MG TABLET PO SCH (09:23)
[2016-10-23] MEDS: TAMSULOSIN 0.4 MG CAPSULE PO SCH (09:23)
[2016-10-23] MEDS: OMEGA 3 ACID ETHYL ESTERS 1 GM CAPSULE PO SCH (09:23)
[2016-10-23] MEDS: ATORVASTATIN 10 MG TABLET PO SCH (09:23)
[2016-10-23] MEDS: RIVASTIGMINE 1.5 MG CAPSULE PO SCH (09:24)
[2016-10-23] MEDS: DILTIAZEM CD 180 MG CAPSULE PO SCH (09:24)
[2016-10-23] MEDS: MEMANTINE 10 MG TABLET PO SCH (09:24)
[2016-10-23] MEDS: METOPROLOL TARTRATE 50 MG TABLET PO SCH (09:24)
[2016-10-23] MEDS: TIMOLOL 0.5% OPH SOLN 5 ML BOTTLE BOTH EYES SCH (09:25)
--- NOTE | 2016-10-23 11:25 | Discharge Summary ---
<Keke Fernandes - Last Filed: 10/23/16 11:23> Hospital Course - Hospital Course Hospital Course: PRIMARY HOME HEALTH CAREGIVER: DR. CHRISTOPHER MITTAL PCP: DR. JENNA REED Mr. Hamilton is an 86 year old male with PMHx chronic atrial fibrillation, hypertension, dementia, coronary artery disease, inferior ID with percutaneous coronary intervention, hypothyroidism, and anemia. Patient now admitted with symptomatic tachycardia and bradycardia. Initially, he presented with atrial fibrillation with RVR, received IV Cardizem bolus and started on Cardizem infusion. Prior to presentation, he had experienced weakness, shortness of breath, and palpitations while getting ready for moravian with pulse rate of 150 noted. Prior to this, he had recently been evaluated by his PCP, and medications were adjusted due to bradycardia in the 40s with hypotension. Patient was noted to have symptomatic sick sinus syndrome and documented tachybradycardia syndrome that limits his medical therapy. Patient has history of chronic atrial fibrillation. TSH was normal, 1.56 and electrolytes within normal limits. He is status post surgical implantation of single-chamber pacemaker to the left chest. Patient did well postoperatively and was without complications. He was transferred to the telemetry unit in stable condition. Pacemaker plantation site looks good. Chest x-ray confirms good lead position. Pacemaker was interrogated by Shawn Browning this morning and his device was functioning appropriately. Eyes are stable this morning. H&H remains low at 9.6 and 28.7. Patient has history of pernicious anemia. Patient has had no overt bleeding. Patient will follow-up with Dr. Ibrahim in 1 week with CBC. Patient remains in atrial fibrillation. Patient was instructed to resume Pradaxa in 2 days. He was noted to have a few episodes of mild tachycardia. This resolved prior to discharge after beta bertrand was increased. Post pacemaker precautions have been reviewed with patient. He verbalizes understanding of this. I have instructed him to continue wearing his arm immobilizer without fail until he sees Dr. Ibrahim in 1 week. He will then receive further instructions at that time. Having felt that patient has met maximal medical therapy, he will be discharged home in stable condition. Patient has been given follow-up appointment with Dr. Ibrahim in 1 week with CBC. He will also follow up with Dr. Mittal in 1 month with BMP, magnesium and EKG. Patient is instructed to resume Pradaxa in 2 days. He will have his CBC rechecked by Dr. Ibrahim office in 1 week. - Time spent with patient Time with patient DS: Greater than 30 minutes Diagnosis - Discharge Diagnosis (1) Chronic atrial fibrillation Status: Chronic (2) Tachy-madhavi syndrome Status: Resolved (3) Sick sinus syndrome Status: Chronic Specialty Discharge - Follow Up or Referrals Follow up with: Kenneth Ibrahim MD [Physician] - 10/30/16 1:20 pm (Please schedule patient a follow-up appointment with Dr. Ibrahim in 1 week with CBC and pacemaker interrogation. ) Charan Mittal MD [Physician] - 11/25/16 1:00 pm (Please schedule follow up with Dr. Mittal in 1 month with BMP, magnesium and EKG.) Discharge Plan - Discharge Data Disposition: Disch To Home/Self Care Condition at Discharge: Stable Discharge Diet: heart healthy Activity: other (Wear arm immobilizer without fail until seen by Dr. Ibrahim. Post pacemaker expectations) Hygiene: may shower Weight Bearing at Discharge: weight bear as tolerated Driving: not until seen by doctor Contact your physician if you experience:: fever over 101, Difficulty voiding, Redness or swelling, Nausea/Vomiting, Shortness of breath, Bleeding, pain uncontrolled by pain medications - Discharge Medications New Diltiazem Cd Cap [Cardizem CD] 180 mg PO BID #60 capsule Metoprolol Tartrate Tab [Lopressor Tab] 100 mg PO BID #60 tablet Continue Aspirin [Ecotrin] 81 mg PO DAILY Cyanocobalamin Inj [Vitamin B12 Inj] 1,000 mcg IM Q30D Dabigatran [Pradaxa] 150 mg PO BID Levothyroxine Tab [Synthroid Tab] 75 mcg PO DAILY Memantine [Namenda] 10 mg PO BID [place]-3S/Dha/Epa/Fish Oil [Fish Oil 1,200 mg Softgel] 1 each PO DAILY Rivastigmine Tartrate [Rivastigmine] 1.5 mg PO BID Tamsulosin HCl 0.4 mg PO DAILY Atorvastatin [Lipitor] 10 mg PO DAILY Timolol 0.5% Oph Soln [Timoptic 0.5%] 1 drop BOTH EYES DAILY ACETAMIN/diphenhydrAMIN 500-25 [Tylenol PM] 2 tablet PO BEDTIME Discontinued Metoprolol Tartrate Tab [Lopressor Tab] 25 mg PO BEDTIME Metoprolol Tartrate Tab [Lopressor Tab] 25 mg PO QAM - Follow Up or Referral Follow Up: Kenneth Ibrahim MD [Physician] - 10/30/16 1:20 pm (Please schedule patient a follow-up appointment with Dr. Ibrahim in 1 week with CBC and pacemaker interrogation. ) Charan Mittal MD [Physician] - 11/25/16 1:00 pm (Please schedule follow up with Dr. Mittal in 1 month with BMP, magnesium and EKG.) - Forms/Instructions Instructions: Pacemaker (DC) Exam - Constitutional Vitals: Period Temp Pulse Resp BP Sys/Villanueva Pulse Ox Last 24 Hr 97.4 F-98.7 F 71-128 16-20 92-126/48-75 94-100 Exam: General appearance: Elderly man with normal weight, no acute distress, flat in bed. Head exam: normal inspection, atraumatic Eye exam: Pupils are equal and reactive. EOMI. There is no trauma. Ear exam: Anatomically normal. Decreased auditory acuity to conversation. Oral exam: No significant oral lesions. Neck exam: normal inspection no JVD. No carotid bruit. Trachea is in midline. Respiratory exam: clear to auscultation bilaterally posteriorly and anteriorly with good air movement. Cardiovascular exam: Irregular rhythm with 1-2/6 systolic murmur. Chest wall/torso: Anatomically normal. No tenderness, deformity. Left chest pacer pocket looks good. Left arm immobilizer noted. Peripheral Pulses: 2+ throughout. GI/Abdominal exam: normal bowel sounds, soft and nontender, no abdominal bruits or pulsatile masses. Musculoskeletal/Extremities exam: normal inspection without edema or cyanosis. Neurological exam: alert, oriented X3. There is no gross neurologic deficits. Psychiatric exam: normal affect, normal mood. Cognitive function is grossly intact. Skin exam: normal color, warm. No rashes or other skin lesions. Discharge Results Labs on day of discharge: Labs from last 24 hours 10/23/16 10/22/16 10/22/16 04:52 07:28 07:28 WBC 7.8 7.9 RBC 2.86 L 2.85 L Hgb 9.6 L 9.7 L Hct 28.7 L 29.1 L MCV 100.3 102.1 H MCH 34 34 MCHC 33.4 33.3 RDW 13.9 14.1 Plt Count 180 178 MPV 10.0 9.3 L Neut % (Auto) 47.4 58.0 Lymph % (Auto) 40.6 31.8 [place] % (Auto) 7.7 6.7 Eos % (Auto) 3.5 2.7 Baso % (Auto) 0.3 0.4 Neut # (Auto) 3.7 4.6 Lymph # (Auto) 3.2 2.5 [place] # (Auto) 0.6 0.5 Eos # (Auto) 0.3 0.2 Baso # (Auto) 0.0 0.0 Immature Gran % 0.5 0.4 Nucleated RBC % 0.0 0.0 Immature Gran # 0.04 0.03 Nucleated RBCs # 0.00 0.00 Anemia Panel Interp See comment ESR W[place] 101 H Absolute Retic 0.1 Percent Retic 3.1 H Retic Hgb Equivalent 38.4 H Hemoglobin A1 97.5 Hemoglobin A2 2.5 Hgb ELP Interp See comment Vitamin B12 757 Folate 23.1 - Imaging and Cardiology Cardiology Procedure: report reviewed by me Procedure: Chest x-ray: report reviewed by me DS: Provider Date of admission: 10/20/16 15:52 Primary care physician: . No PCP Attending physician on admission: Charan Mittal MD Discharging clinician: Keke Fernandes NP Expected date of discharge: 10/23/16 <Kenneth Ibrahim - Last Filed: 10/23/16 15:58> Hospital Course - Hospital Course Hospital Course: Patient personally interviewed and examined and chart reviewed. Discussed his case with Keke Fernandes NP. Patient is stable doing well. Patient site looks good. Chest x-ray stable. Pacemaker interrogation stable. I agree with the history examination and assessment. The patient is being discharged with follow -up as an outpatient. Diagnosis - Discharge Diagnosis (1) Atrial fibrillation with RVR Status: Chronic (2) Sick sinus syndrome Status: Chronic (3) Tachy-madhavi syndrome Status: Resolved (4) Essential hypertension Status: Chronic (5) Dementia Status: Chronic (6) History of chronic atrial fibrillation Status: Chronic (7) Hyperlipidemia Status: Chronic (8) Hypothyroid Status: Acute (9) Pernicious anemia Status: Chronic
[2016-10-23] MEDS ORDERED: METOPROLOL TARTRATE 100 MG TABLET PO SCH (11:40)
[2016-10-23 12:27] VITALS: BP 106/66
[2016-11-03] MEDS ORDERED: CYANOCOBALAMIN 1000 MCG/1 ML VIAL IM SCH (09:00)
== END 2016-10-23 14:28 | disposition home or self-care (01) | DRG 244 ==
LOC: N.ED 14:25 → N.EDINP 15:52 → N.TELEN 19:02
PROVIDERS: ADMIT Internal Medicine Cardiovascular Disease; ATTEND Internal Medicine Cardiovascular Disease

== ENCOUNTER 2016-10-26 17:41 | Inpatient (IN) ==
[2016-10-26] MEDS ORDERED: ONDANSETRON 4 MG/2 ML VIAL IV STA (18:28)
[2016-10-26] MEDS ORDERED: PANTOPRAZOLE 40 MG VIAL IV STA (18:28)
[2016-10-26] MEDS ORDERED: SODIUM CHLORIDE 0.9% 1,000 ML IV STA (18:28)
[2016-10-26] MEDS ORDERED: ONDANSETRON 4 MG/2 ML VIAL ONE (18:42)
[2016-10-26] MEDS ORDERED: PANTOPRAZOLE 40 MG VIAL IV ONE (18:42)
[2016-10-26 19:25] LABS: Basophils % 0.5 % (0.0-0.8); Eosinophils # 0.4 10*3/uL (0.0-0.87); Eosinophils % 4.2 % (0.00-10.9); Hematocrit 28.9 VOL% (42.0-52.0); Hemoglobin 9.5 GM/DL (14.0-18.0); Immature Granulocytes % 0.6 %; Immature Granulocytes Absolute 0.05 #; Lymphocytes # 3.4 10*3/uL (1.4-4.0); Lymphocytes % 39.7 % (21.2-54.2); Mean Corpuscular HGB Conc 32.9 GM/DL (32-36); Mean Corpuscular Hemoglobin 34 PG (27-34); Mean Platelet Volume 9.7 FL (9.6-12.0); Monocytes # 0.6 10*3/uL (0.11-0.8); Neutrophils # 4.1 10*3/uL (1.4-7.4); Platelet Count 214 T/CUMM (130-400); Red Blood Count 2.78 MC/CUMM (3.8-5.5); Red Cell Distribution Width 14.3 % (9.3-17.3); White Blood Count 8.5 T/CUMM (4-12)
[2016-10-26 19:37] LABS: INR 1.1; PT Patient Result 12.2 SECS; Partial Thromboplastin Time 25.9 SECS (0-40)
--- NOTE | 2016-10-26 19:39 | Emergency Department Note ---
I, Melanie Hutchinson, am scribing for, and in the presence of, Raji Juarez MD 18: 33. ILarry Robert M, MD, personally performed the services described in this documentation, ascribed by Melanie Hutchinson in my presence, and it is both accurate and complete . Arrival - Arrival Chief Complaint: GI Bleed/Rectal Stated Complaint: ?GI Bleed ED Nursing Triage Note: Pt brought by EMS after having bright red rectal bleeding with one clot this afternoon when he had a BM. Pt had a pacemaker placed by Dr Ibrahim and started back on Pradaxa today. Pt denies abd pain. Mode of Arrival: Stretcher Limitations: No Limitations Source: Patient - History of Present Illness HPI Narrative: Pt is a 86 y/o male who came to ED by EMS with c/o rectal bleeding with clot found this afternoon by spouse. Spouse notes she was checking on pt when he was in bathroom and noticed the blood. Spouse states she wrapped a towel in pt' s underwear and added pajama pants to get pt in bed. Son came cover to help put the diaper on pt, when they noticed pt bled through towel and clothes. Pt cannot contribute to hx due to dementia, but denies abdomen pain. He just had pacemaker put in on Friday by Dr. Ibrahim, also sees PCP Dr. Kyrie Isaacs. He started back on Pradaxa today, per spouse. Onset (ago): hour(s) Consistency: constant Severity: mild, moderate Severity scale (1-10): 4 Quality: other (bleeding) Allergies/Adverse Reactions: Allergies Allergy/AdvReac Type Severity Reaction Status Date / Time No Known Allergies Allergy Unverified 10/20/16 14:59 Home Medications: Home Medications Medication Instructions Recorded Confirmed Type ACETAMIN/diphenhydrAMIN 500-25 2 tablet PO BEDTIME 10/20/16 10/26/16 History [Tylenol PM] Aspirin [Ecotrin] 81 mg PO DAILY 10/20/16 10/26/16 History Atorvastatin [Lipitor] 10 mg PO DAILY 10/20/16 10/26/16 History Cyanocobalamin Inj [Vitamin B12 1,000 mcg IM Q30D 10/20/16 10/26/16 History Inj] Dabigatran [Pradaxa] 150 mg PO BID 10/20/16 10/26/16 History Levothyroxine Tab [Synthroid Tab] 75 mcg PO DAILY 10/20/16 10/26/16 History Memantine [Namenda] 10 mg PO BID 10/20/16 10/26/16 History [place]-3S/Dha/Epa/Fish Oil [Fish 1 each PO DAILY 10/20/16 10/26/16 History Oil 1,200 mg Softgel] Rivastigmine Tartrate 1.5 mg PO BID 10/20/16 10/26/16 History [Rivastigmine] Tamsulosin HCl 0.4 mg PO DAILY 10/20/16 10/26/16 History Timolol 0.5% Oph Soln [Timoptic 1 drop BOTH EYES DAILY 10/20/16 10/26/16 History 0.5%] Diltiazem Cd Cap [Cardizem CD] 180 mg PO BID #60 capsule 10/23/16 10/26/16 Rx Metoprolol Tartrate Tab [Lopressor 100 mg PO BID #60 tablet 10/23/16 10/26/16 Rx Tab] Review of System - Review of System ROS unobtainable: due to dementia Medical,Surgical,& Family Hx - Medical History Cardio: History of: Cardiac Dysrhythmia (a-fib), Hypertension, MA, Pacemaker () Neurology: History of: Dementia No history of: Seizures - Surgical History Cardiac Surgeries: Sugical HX of: Cardiac Catheterization (stents) Abdominal Surgeries: Surgical HX of: Abdominal Surgery (AAA repair) - Family History Family History: noncontributory - Social History Smoking Status: Never smoker Marital Status: Lives With:: Spouse Exam Vital Signs: Vital Signs Temperature 96.9 F L 10/26/16 18:23 Pulse Rate 67 10/26/16 18:30 Respiratory Rate 19 10/26/16 18:30 Blood Pressure 96/56 10/26/16 18:30 O2 Sat by Pulse Oximetry 98 10/26/16 18:30 - General General appearance: alert, in no apparent distress - Head Head exam: Present: atraumatic, normocephalic - Eye Eye exam: Present: PERRL, EOMI - ENT ENT exam: Present: mucous membranes moist. Absent: mucous membranes dry - Neck Neck exam: Present: full ROM. Absent: tenderness - Chest Chest inspection: Present: symmetric chest wall rise. Absent: tenderness - Respiratory Respiratory exam: Present: normal lung sounds bilaterally. Absent: respiratory distress - Cardiovascular Cardiovascular exam: Present: regular rate, normal rhythm, normal heart sounds - Abdominal Exam Abdominal exam: Present: soft. Absent: distention, tenderness - Extremities Exam Extremities exam: Absent: pedal edema - Neurological Exam Neurological exam: Present: alert, CN II-XII intact. Absent: oriented X3, motor sensory deficit - Psychiatric Psychiatric exam: Present: other (demented) - Skin Skin exam: Present: warm, dry Results - Labs CBC & BMP: 10/26/16 18:57 10/26/16 18:57 Lab Results: I have reviewed the patients labs Labs: Lab Results WBC 8.5 T/CUMM (4-12) 10/26/16 18:57 RBC 2.78 MC/CUMM (3.8-5.5) L 10/26/16 18:57 Hgb 9.5 GM/DL (14.0-18.0) L 10/26/16 18:57 Hct 28.9 VOL% (42.0-52.0) L 10/26/16 18:57 MCV 104.0 FL (87-102) H 10/26/16 18:57 MCH 34 PG (27-34) 10/26/16 18:57 MCHC 32.9 GM/DL (32-36) 10/26/16 18:57 RDW 14.3 % (9.3-17.3) 10/26/16 18:57 Plt Count 214 T/CUMM (130-400) 10/26/16 18:57 MPV 9.7 FL (9.6-12.0) 10/26/16 18:57 Neut % (Auto) 48.0 % (38.7-73.9) 10/26/16 18:57 Lymph % (Auto) 39.7 % (21.2-54.2) 10/26/16 18:57 [place] % (Auto) 7.0 % (1.7-12.7) 10/26/16 18:57 Eos % (Auto) 4.2 % (0.00-10.9) 10/26/16 18:57 Baso % (Auto) 0.5 % (0.0-0.8) 10/26/16 18:57 Neut # (Auto) 4.1 10*3/uL (1.4-7.4) 10/26/16 18:57 Lymph # (Auto) 3.4 10*3/uL (1.4-4.0) 10/26/16 18:57 [place] # (Auto) 0.6 10*3/uL (0.11-0.8) 10/26/16 18:57 Eos # (Auto) 0.4 10*3/uL (0.0-0.87) 10/26/16 18:57 Baso # (Auto) 0.0 10*3/uL (0.0-0.2) 10/26/16 18:57 Immature Gran % 0.6 % 10/26/16 18:57 Nucleated RBC % 0.0 /100WBC 10/26/16 18:57 Immature Gran # 0.05 # 10/26/16 18:57 Nucleated RBCs # 0.00 10*3/uL 10/26/16 18:57 INR 1.1 10/26/16 18:57 PT Patient/Control Mix 12.2 SECS 10/26/16 18:57 Circ Anticoag PTT 25.9 SECS (0-40) D 10/26/16 18:57 Sodium 136 MMOL/L (136-145) 10/26/16 18:57 Potassium 4.5 MMOL/L (3.5-5.1) 10/26/16 18:57 Chloride 106 MMOL/L (98-107) 10/26/16 18:57 Carbon Dioxide 25 MMOL/L (21-32) 10/26/16 18:57 Anion Gap 9.5 MMOL/L (5.0-15.0) 10/26/16 18:57 BUN 18 MG/DL (7-18) 10/26/16 18:57 Creatinine 1.30 MG/DL (0.70-1.30) 10/26/16 18:57 GFR Calculation 57 ML/MIN 10/26/16 18:57 BUN/Creatinine Ratio 13.00 RATIO (6.00-20.00) 10/26/16 18:57 Glucose 107 MG/DL (74-106) H 10/26/16 18:57 Calculated Osmolality 273.0 MOS/KG (273-304) 10/26/16 18:57 Calcium 8.6 MG/DL (8.5-10.1) 10/26/16 18:57 Magnesium 2.2 MG/DL (1.8-2.4) 10/26/16 18:57 Total Bilirubin 0.60 MG/DL (0.2-1.0) 10/26/16 18:57 AST 20 U/L (0-37) 10/26/16 18:57 ALT 18 U/L (16-61) 10/26/16 18:57 Alkaline Phosphatase 81 U/L (45-117) 10/26/16 18:57 Ammonia 36 UMOL/L (11-32) H 10/26/16 18:57 Total Protein 6.5 G/DL (6.4-8.3) 10/26/16 18:57 Albumin 2.7 G/DL (3.4-5.0) L 10/26/16 18:57 Globulin 3.8 G/DL (2.3-3.5) H 10/26/16 18:57 Albumin/Globulin Ratio 0.7 RATIO (1.1-2.2) L 10/26/16 18:57 Blood Type A POSITIVE 10/26/16 18:57 Antibody Screen Negative 10/26/16 18:57 Blood Type A POSITIVE 10/26/16 18:57 Antibody Screen Negative 10/26/16 18:57 Disposition Clinical Impression: Lower GI bleed, History of right coronary artery stent placement, History of placement of stent in LAD coronary artery, Chronic atrial fibrillation, History of AAA (abdominal aortic aneurysm) repair Case discussed with: patient, patient's family
[2016-10-26 19:57] LABS: Albumin 2.7 G/DL (3.4-5.0); Bilirubin,Total 0.6 MG/DL (0.2-1.0); Calcium 8.6 MG/DL (8.5-10.1); Magnesium 2.2 MG/DL (1.8-2.4); Potassium 4.5 MMOL/L (3.5-5.1); Total Protein 6.5 G/DL (6.4-8.3)
--- NOTE | 2016-10-26 21:25 | CT Report ---
History: Lower GI bleed. History of abdominal aortic aneurysm repair. Patient anticoagulated. Rectal bleeding Date: 10/26/2016 Study: CT abdomen and pelvis with IV contrast Comparison exam: No previous abdominal CT available Technique: Spiral CT sections were obtained from the lung bases to the pubic symphysis 100 mL Omnipaque 350 IV. Total DLP measures 1606.1 mGy*cm. CT abdomen: There is mild patchy and hazy atelectasis/infiltrate in the right lower lobe more so than the left lower lobe. There is mild right-sided pleural effusion. There is prominent coronary artery calcification with involvement of the left anterior descending coronary artery. There is some infolding of the right hemidiaphragm along the lateral margin of the right lobe of the liver. There is no focal hepatic mass. Spleen, bile ducts, gallbladder, pancreas, and adrenal glands are unremarkable. There is bilateral renal excretion without hydronephrosis. There is a 5 mm calcification in the right renal sinus which may represent nonobstructing renal stone. There is a small exophytic cyst at the lower pole of the left kidney. There is no bowel obstruction. There is no pneumoperitoneum. There is diverticulosis without jeri diverticulitis. The appendix is normal. There has been previous endovascular repair of an abdominal aortic aneurysm. There is no retroperitoneal hemorrhage. There is no gross endoleak, though there is slightly suboptimal timing of IV contrast. The [place] aneurysm sac measures approximately 3.1 cm diameter in the axial plane. There is a periumbilical hernia containing only fat. 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 Embolization coils are noted in the right hypogastric artery. There is moderate central depression of the superior endplate of the L1 vertebral body. There is degenerative disc disease of the spine. CT pelvis: There is no soft tissue mass or abnormal fluid collection in the pelvis. There are fat containing inguinal hernias bilaterally. Impression: There is no evidence of retroperitoneal hemorrhage. 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 Diverticulosis without jeri diverticulitis Right greater than left bibasilar atelectasis/infiltrate Right pleural effusion No definite acute process otherwise. Other findings discussed above PROCEDURE INTERPRETED AT [facility] DEPARTMENT OF RADIOLOGY Final Report Signed by: Dr. Radha Hutson
[2016-10-27] MEDS: DEXTROSE 5% NACL 0.45% 1,000 ML IV SCH ×3 (00:05→20:43)
--- NOTE | 2016-10-27 01:22 | Hospitalist History & Physical ---
Assessment and Plan - Time spent with patient Time spent with patient: Greater than 30 minutes (1) Lower GI bleed Status: Acute Assessment and plan: Likely related to anticoagulation with Pradaxa, will hold Pradaxa and aspirin as well PPI twice daily Monitor vital signs and serial H&H every 8 hours Clear liquid diet, likely colonoscopy on Friday Monitor on telemetry Emergency department typed and screened, given coronary history will monitor closely for need of transfusion even above typical threshold CT indicates diverticulosis may be the cause Current Visit: Yes (2) Essential hypertension Status: Chronic Assessment and plan: Continue Lopressor and diltiazem Current Visit: No (3) Sick sinus syndrome Status: Chronic Assessment and plan: Continue Lopressor and diltiazem, currently rate is well controlled with pacemaker in place Monitor on telemetry Hold Pradaxa given bleeding Current Visit: No (4) Dementia Status: Chronic Assessment and plan: Pleasantly demented without behavioral disturbance at this time, continue Namenda and Exelon Current Visit: No (5) CAD (coronary artery disease) Status: Chronic Assessment and plan: History of MIs with stents, none within the last year. Hold aspirin and Pradaxa given bleeding. Current Visit: No (6) Hypothyroid Status: Chronic Assessment and plan: Continue home levothyroxine dose, check TSH Current Visit: No History of Present Illness Chief complaint: Rectal bleeding History of present illness: Mr. Hamilton is a 86 year old male with past medical history of dementia, coronary artery disease, AAA status repair, A. fib, sick sinus syndrome with pacemaker, hypertension, hypothyroidism, pernicious anemia, glaucoma that presented with a chief complaint of rectal bleeding. Onset sudden. Duration several hours. Quality bright red blood, mostly liquid with some clotting. No aggravating or relieving factors. No associated pain or vomiting. Patient has dementia and is unable to contribute significantly to his own history, he is disoriented. His and daughter at the bedside and assist with this history. He just had a pacemaker put in on Friday for sick sinus syndrome. His Pradaxa was held perioperatively and restarted yesterday. He has never had a GI bleed before. I have personally reviewed the workup in the emergency department including lab data and imaging. I have discussed his case with the emergency department providers. I discussed CODE STATUS with the family in the room and they preferred that he would a natural as opposed to being on life support machines or receiving chest compressions. They agreed that his CODE STATUS should be DNR. Home Medications Medication Instructions Recorded Confirmed Type ACETAMIN/diphenhydrAMIN 500-25 2 tablet PO BEDTIME 10/20/16 10/26/16 History [Tylenol PM] Aspirin [Ecotrin] 81 mg PO DAILY 10/20/16 10/26/16 History Atorvastatin [Lipitor] 10 mg PO DAILY 10/20/16 10/26/16 History Cyanocobalamin Inj [Vitamin B12 1,000 mcg IM Q30D 10/20/16 10/26/16 History Inj] Dabigatran [Pradaxa] 150 mg PO BID 10/20/16 10/26/16 History Levothyroxine Tab [Synthroid Tab] 75 mcg PO DAILY 10/20/16 10/26/16 History Memantine [Namenda] 10 mg PO BID 10/20/16 10/26/16 History [place]-3S/Dha/Epa/Fish Oil [Fish 1 each PO DAILY 10/20/16 10/26/16 History Oil 1,200 mg Softgel] Rivastigmine Tartrate 1.5 mg PO BID 10/20/16 10/26/16 History [Rivastigmine] Tamsulosin HCl 0.4 mg PO DAILY 10/20/16 10/26/16 History Timolol 0.5% Oph Soln [Timoptic 1 drop BOTH EYES DAILY 10/20/16 10/26/16 History 0.5%] Diltiazem Cd Cap [Cardizem CD] 180 mg PO BID #60 capsule 10/23/16 10/26/16 Rx Metoprolol Tartrate Tab [Lopressor 100 mg PO BID #60 tablet 10/23/16 10/26/16 Rx Tab] Allergies Allergy/AdvReac Type Severity Reaction Status Date / Time No Known Allergies Allergy Unverified 10/20/16 14:59 Medical,Surgical,& Family Hx - Medical History Cardio: History of: Cardiac Dysrhythmia (a-fib), Hypertension, [place], Pacemaker () Neurology: History of: Dementia No history of: Seizures - Surgical History Cardiac Surgeries: Sugical HX of: Cardiac Catheterization (stents) Abdominal Surgeries: Surgical HX of: Abdominal Surgery (AAA repair) - Social History Smoking Status: Never smoker Frequency of Alcohol Use: None Type of Drug Use: None ROS unobtainable: due to dementia Exam - Constitutional Vitals: Period Temp Pulse Resp BP Sys/Villanueva Pulse Ox Last 24 Hr 97.6 F 70-78 15-18 109-114/60-61 93-94 General appearance: over weight, other (Elderly white male, pleasantly demented and cooperative) Exam: - Eye Eye exam: Present: EOMI. Absent: conjunctival injection, scleral icterus Pupils: Present: ALY - ENT ENT exam: Present: normal external ear exam, normal oropharynx - Expanded ENT Exam Mouth exam: Present: moist, poor dentition - Neck Neck exam: Present: normal inspection. Absent: lymphadenopathy, thyromegaly - Respiratory Respiratory exam: Present: clear to auscultation bilaterally. Absent: accessory muscle use, rales, rhonchi, wheezes - Cardiovascular Cardiovascular exam: Present: Irregularly irregular rhythm, normal rate. Absent : diastolic murmur, systolic murmur - Chest Chest exam: Present: Pacemaker insertion site over left chest clean dry and intact - Expanded Cardiovascular Exam Peripheral pulses: 2+: posterior tibialis (L), posterior tibialis (R) - GI/Abdominal GI/Abdominal exam: Present: normal bowel sounds, soft. Absent: distended, hyperactive bowel sounds, hypoactive bowel sounds, organomegaly, tenderness, rebound - Extremities Exam Extremities exam: Absent: edema - Neurological Exam Neurological exam: Present: alert, disoriented to place and time which is his baseline, CN II-XII intact. Absent: motor sensory deficit - Psychiatric Psychiatric exam: Present: Confused affect - Skin Skin exam: Present: warm, dry. Absent: diaphoretic, rash Results - Labs CBC & BMP: 10/26/16 18:57 10/26/16 18:57 - Diagnostic Findings Procedure: CT Abdomen and Pelvis: report reviewed by me Quality Measures - VTE Contraindication to Pharmacological VTE Prophylaxis: Active Bleeding
[2016-10-27 05:57] LABS: Basophils % 0.5 % (0.0-0.8); Eosinophils # 0.4 10*3/uL (0.0-0.87); Eosinophils % 5.1 % (0.00-10.9); Hemoglobin 10.1 GM/DL (14.0-18.0); Immature Granulocytes % 0.5 %; Immature Granulocytes Absolute 0.04 #; Lymphocytes # 2.5 10*3/uL (1.4-4.0); Lymphocytes % 32.5 % (21.2-54.2); Mean Corpuscular HGB Conc 32.6 GM/DL (32-36); Mean Corpuscular Hemoglobin 34 PG (27-34); Mean Corpuscular Volume 104.7 FL (87-102); Mean Platelet Volume 9.8 FL (9.6-12.0); Monocytes # 0.6 10*3/uL (0.11-0.8); Monocytes % 7.2 % (1.7-12.7); Neutrophils # 4.1 10*3/uL (1.4-7.4); Neutrophils % 54.2 % (38.7-73.9); Platelet Count 211 T/CUMM (130-400); Red Blood Count 2.96 MC/CUMM (3.8-5.5); Red Cell Distribution Width 14.4 % (9.3-17.3); White Blood Count 7.6 T/CUMM (4-12)
[2016-10-27 06:38] LABS: Calcium 8.3 MG/DL (8.5-10.1); Magnesium 2.1 MG/DL (1.8-2.4); Osmolality,Calculated 282.3 MOS/KG (273-304); Potassium 4.1 MMOL/L (3.5-5.1)
[2016-10-27] MEDS: TAMSULOSIN 0.4 MG CAPSULE PO SCH (08:24)
[2016-10-27] MEDS: ATORVASTATIN 10 MG TABLET PO SCH (08:24)
[2016-10-27] MEDS: LEVOTHYROXINE 75 MCG TABLET PO SCH (08:24)
[2016-10-27] MEDS: PANTOPRAZOLE 40 MG VIAL IV SCH ×2 (08:31→20:45)
[2016-10-27] MEDS: DILTIAZEM CD 180 MG CAPSULE PO SCH ×2 (08:31→20:47)
[2016-10-27] MEDS: RIVASTIGMINE 1.5 MG CAPSULE PO SCH ×2 (08:31→20:48)
[2016-10-27] MEDS: METOPROLOL TARTRATE 100 MG TABLET PO SCH ×2 (08:31→20:48)
[2016-10-27] MEDS: MEMANTINE 10 MG TABLET PO SCH ×2 (08:31→20:48)
[2016-10-27] MEDS: TIMOLOL 0.5% OPH SOLN 5 ML BOTTLE BOTH EYES SCH (08:49)
[2016-10-27 11:31] LABS: Hematocrit 28.9 VOL% (42.0-52.0); Hemoglobin 9.5 GM/DL (14.0-18.0)
--- NOTE | 2016-10-27 14:38 | Gastrointestinal Consult Note ---
Assessment and Plan - Time spent with patient Time spent with patient: Greater than 30 minutes (1) Hematochezia Status: Acute Current Visit: Yes (2) Other specified counseling Status: Acute Current Visit: Yes History of Present Illness History of present illness: Mr. Hamilton is a 86 year old male Home Medications Medication Instructions Recorded Confirmed Type ACETAMIN/diphenhydrAMIN 500-25 2 tablet PO BEDTIME 10/20/16 10/27/16 History [Tylenol PM] Aspirin [Ecotrin] 81 mg PO DAILY 10/20/16 10/27/16 History Atorvastatin [Lipitor] 10 mg PO DAILY 10/20/16 10/27/16 History Cyanocobalamin Inj [Vitamin B12 1,000 mcg IM Q30D 10/20/16 10/27/16 History Inj] Dabigatran [Pradaxa] 150 mg PO BID 10/20/16 10/27/16 History Levothyroxine Tab [Synthroid Tab] 75 mcg PO DAILY 10/20/16 10/27/16 History Memantine [Namenda] 10 mg PO BID 10/20/16 10/27/16 History [place]-3S/Dha/Epa/Fish Oil [Fish 1 each PO DAILY 10/20/16 10/27/16 History Oil 1,200 mg Softgel] Rivastigmine Tartrate 1.5 mg PO BID 10/20/16 10/27/16 History [Rivastigmine] Tamsulosin HCl 0.4 mg PO DAILY 10/20/16 10/27/16 History Timolol 0.5% Oph Soln [Timoptic 1 drop BOTH EYES DAILY 10/20/16 10/27/16 History 0.5%] Diltiazem Cd Cap [Cardizem CD] 180 mg PO BID #60 capsule 10/23/16 10/27/16 Rx Metoprolol Tartrate Tab [Lopressor 100 mg PO BID #60 tablet 10/23/16 10/27/16 Rx Tab] Allergies Allergy/AdvReac Type Severity Reaction Status Date / Time No Known Allergies Allergy Unverified 10/20/16 14:59 Medical,Surgical,& Family Hx - Medical History Cardio: History of: Cardiac Dysrhythmia (a-fib), Hypertension, [place], Pacemaker () Neurology: History of: Dementia No history of: Seizures - Surgical History Cardiac Surgeries: Sugical HX of: Cardiac Catheterization (stents) Abdominal Surgeries: Surgical HX of: Abdominal Surgery (AAA repair) - Social History Smoking Status: Never smoker Frequency of Alcohol Use: None Type of Drug Use: None Exam - Constitutional Vitals: Period Temp Pulse Resp BP Sys/[place] Pulse Ox Last 24 Hr 97.1 F-99.7 F 62-97 15-20 103-121/57-68 93-99 Results - Labs CBC & BMP: 10/27/16 11:26 10/27/16 04:48 Quality Measures - VTE Contraindication to Pharmacological VTE Prophylaxis: Active Bleeding Note Addendum: PLEASE NOTE -- automatic citation of patient information is unavoidable in this electronic note. I have made a reasonable effort to review the information cited , but it is not a part of my evaluation, impression, or recommendation unless specifically discussed in the dictated text that follows. As well, voice recognition software was used in the creation of this clinical note. Reasonable effort was made to identify and correct gross errors. Despite proofreading, errors in cafeteria food server may be present, including nonsense verbiage at times. If you encounter such an error, please contact me at [phone] for discussion and correction. -- Marleni Chief complaint: gastrointestinal bleeding History of present illness: This is a new patient, a 86-year-old male seen by consultation for evaluation of gastrointestinal bleeding. The patient is admitted to the telemetry floor under the care of Dr. Goddard with a primary diagnosis of same. The patient suffers from dementia and is unable to provide his own medical history. He is attended by family members who are able to provide some help. The patient was admitted through the emergency department yesterday with primary complaint of blood in his stool over the past several hours. Evaluation at that time revealed hemoglobin less than 10 g/dL. of note, the patient had a pacemaker placed this past Friday against the diagnosis of sick sinus syndrome and was started on dual antiplatelet therapy. His admitting physician has held this medication for the time being. Two bowel movements have been reported since his admission, both with bright red blood. Review of systems: 12 point review of systems was negative except as documented above. Outpatient medications: Tylenol, aspirin, Lipitor, vitamin B12, Pradaxa, Synthroid, Namenda, Rivastigmine, tamsulosin, diltiazem, metoprolol Inpatient medications: Tylenol, Lipitor, Cardizem, Synthroid, Namenda, Lopressor , Protonix, Exelon, Flomax Past Medical History: atrial fibrillation, hypertension, sick sinus syndrome status post pacemaker placement, abdominal aortic aneurysms status post surgical repair, coronary artery disease status post stent placement Social history: negative tobacco. Negative alcohol Family history: no gastrointestinal cancers Physical examination: Vital Signs: Current vital signs reviewed and documented above. General Appearance: sitting on the bedside commode. Comfortable. Head: Normocephalic. Neck: Palpation of the neck revealed no abnormalities. Eyes: No scleral icterus. No scleral injection. No conjunctival pallor. Oral Cavity: Odor of breath was normal. No drooling was observed. Lips showed no abnormalities. Floor of the mouth showed no abnormalities. Pharynx: Oropharynx was normal. Lungs: Respiration rhythm and depth was normal. Cardiovascular: Heart rate and rhythm were normal. No murmurs were appreciated. Abdomen: abdomen was not distended. Abdominal palpation revealed no tenderness and no hepatosplenomegaly. Ascites was not discovered. Musculoskeletal System: Musculoskeletal system was grossly normal. Neurological: level of consciousness was normal. Speech was normal. Skin: General appearance was normal. Color and pigmentation were normal. No skin lesions. Laboratory: hemoglobin 9.5, hematocrit 28.9, platelets 211, INR 1.1, PT 12.2 Radiology: CT of the abdomen and pelvis, October 26, 2016 -- no evidence of retroperitoneal hemorrhage; diverticulosis Impressions: 1. Hematochezia: the differential diagnosis includes diverticular bleeding, infectious/inflammatory enterocolitis, arteriovenous malformation, hemorrhoidal bleeding, colon polyps (including cancer), and upper gastrointestinal bleeding. I recommend aggressive crystalloid resuscitation. I recommend serial hemoglobin and hematocrit monitoring with transfusion as indicated. I recommend intravenous proton pump inhibitor. Patient may need colonoscopy with timing dependent on clinical progress. If bleeding continues, this will likely need to be done during this admission. If not, we could consider outpatient colonoscopy once he is adequately resuscitated and transfused. 2. Other specified counseling -- The patient was seen for greater than 30 minutes. The patient was counseled for greater than 50% of this time regarding differential diagnosis, likely diagnosis, diagnostic and therapeutic alternatives, risks/benefits/alternatives of medications and procedures, and plan of care generally. The patient expressed understanding and wishes to proceed. Recommendations: -- aggressive crystalloid resuscitation -- transfusion as indicated -- serial hemoglobin and hematocrit monitoring -- colonoscopy with timing dependent on clinical progress -- thank you for consultation. Dr. Farrar will assume G.I. care for this patient tomorrow.
--- NOTE | 2016-10-27 15:20 | Hospitalist Progress Note ---
Assessment and Plan - Time spent with patient Time spent with patient: Greater than 30 minutes (1) Lower GI bleed Status: Acute Assessment and plan: GI has been consulted. CT indicates likely diverticulosis or diverticular bleed. Current Visit: Yes (2) Chronic atrial fibrillation Status: Chronic Assessment and plan: Anticoagulation has been held. Will consult cardiology for assistance regarding when to reinitiate anticoagulation. Current Visit: Yes (3) Dementia Status: Chronic Assessment and plan: Continue current management. Current Visit: No (4) Hypothyroid Status: Chronic Assessment and plan: Continue current management. Current Visit: No Hospitalist: Subjective Interval history: Has been having continued by her blood per rectum while hospitalized. Bedside commode reveals blood within the container. Admitted overnight for bright blood per rectum and CT revealed possible diverticular bleed Exam - Constitutional Vitals: Period Temp Pulse Resp BP Sys/Villan[place]va Pulse Ox Last 24 Hr 97.1 F-99.7 F 62-97 15-20 103-121/57-68 93-99 General appearance: no acute distress - Head Head exam: Present: normocephalic, atraumatic - Eye Eye exam: Present: EOMI Pupils: Present: ALY - ENT ENT exam: Present: normal exam - Neck Neck exam: Present: normal inspection - Respiratory Respiratory exam: Present: clear to auscultation bilaterally. Absent: rhonchi, wheezes - Cardiovascular Cardiovascular exam: Present: irregular rhythm. Absent: gallop, rubs, systolic murmur - GI/Abdominal GI/Abdominal exam: Present: normal bowel sounds, soft. Absent: distended, firm , guarding, tenderness, rebound - Extremities Exam Extremities exam: Present: normal inspection. Absent: calf tenderness, edema Results - Labs CBC & BMP: 10/27/16 11:26 10/27/16 04:48 Lab Results: I have reviewed the past 24 hour labs Quality Measures - VTE Contraindication to Pharmacological VTE Prophylaxis: Active Bleeding
--- NOTE | 2016-10-27 16:22 | Cardiology Consult Note ---
Assessment and Plan (1) Cardiac pacemaker in situ Status: Acute Assessment and plan: This is actually planning within the past few days. He is doing well with good. Will have interrogated tomorrow. Current Visit: Yes (2) History of placement of stent in LAD coronary artery Status: Chronic Assessment and plan: He is stable without anginal symptoms. Current Visit: Yes (3) Chronic atrial fibrillation Status: Chronic Assessment and plan: He is had with his sick sinus syndrome and tachybradycardia syndrome. His rates are controlled on medications and his pacemaker. Current Visit: Yes (4) Lower GI bleed Status: Acute Assessment and plan: This is being evaluated. Current Visit: Yes History of Present Illness - Data of Consult Patient: known to practice within the last 3 years Consult date: 10/27/16 Requesting Physician: Todd Goddard - Consult Narrative Reason for consult: atrial fibrillation with pacemaker History of present illness: Mr. Hamilton is a 86 year old male who is followed by Dr. Roger Mittal. The patient has chronic atrial fibrillation is had E she's recently of tachybradycardia syndrome with sick sinus syndrome. He recently required a single-chamber pacemaker in fact it was placed 10/22/2016. This is a single- chamber pacemaker he did well. He's had no proximal pacemaker. He was placed back on his anticoagulation after procedure was done. He's been on chronic anticoagulation. The noted last night that he had bright red blood per rectum after bowel movement. They were brought to the emergency worries evaluated. His H&H is stable. GI medicine is evaluating him. His anticoagulation has been stopped. His telemetry reveals atrial fibrillation with controlled ventricular response with episodes of ventricular pacing. Other chronic history since significant in that in addition to his chronic atrial fibrillation he has had hypertension, abdominal aortic aneurysm repair, coronary disease with prior stenting and myocardial infarction. He is also had dyslipidemia. He does have dementia. CC: Shy Pedroza MD - Home Medications and Allergies Home Medications: Home Medications Medication Instructions Recorded Confirmed Type ACETAMIN/diphenhydrAMIN 500-25 2 tablet PO BEDTIME 10/20/16 10/27/16 History [Tylenol PM] Aspirin [Ecotrin] 81 mg PO DAILY 10/20/16 10/27/16 History Atorvastatin [Lipitor] 10 mg PO DAILY 10/20/16 10/27/16 History Cyanocobalamin Inj [Vitamin B12 1,000 mcg IM Q30D 10/20/16 10/27/16 History Inj] Dabigatran [Pradaxa] 150 mg PO BID 10/20/16 10/27/16 History Levothyroxine Tab [Synthroid Tab] 75 mcg PO DAILY 10/20/16 10/27/16 History Memantine [Namenda] 10 mg PO BID 10/20/16 10/27/16 History [place]-3S/Dha/Epa/Fish Oil [Fish 1 each PO DAILY 10/20/16 10/27/16 History Oil 1,200 mg Softgel] Rivastigmine Tartrate 1.5 mg PO BID 10/20/16 10/27/16 History [Rivastigmine] Tamsulosin HCl 0.4 mg PO DAILY 10/20/16 10/27/16 History Timolol 0.5% Oph Soln [Timoptic 1 drop BOTH EYES DAILY 10/20/16 10/27/16 History 0.5%] Diltiazem Cd Cap [Cardizem CD] 180 mg PO BID #60 capsule 10/23/16 10/27/16 Rx Metoprolol Tartrate Tab [Lopressor 100 mg PO BID #60 tablet 10/23/16 10/27/16 Rx Tab] Allergies/Adverse Reactions: Allergies Allergy/AdvReac Type Severity Reaction Status Date / Time No Known Allergies Allergy Unverified 10/20/16 14:59 Review of systems: Other things already mentioned no real change since his discharge last week. Medical,Surgical,& Family Hx - Medical History Cardio: History of: Cardiac Dysrhythmia (a-fib), Hypertension, [place], Pacemaker () Neurology: History of: Dementia No history of: Seizures - Surgical History Cardiac Surgeries: Sugical HX of: Cardiac Catheterization (stents) Abdominal Surgeries: Surgical HX of: Abdominal Surgery (AAA repair) - Social History Smoking Status: Never smoker Frequency of Alcohol Use: None Type of Drug Use: None Physical Examination Vital Signs Temp Pulse Resp BP Pulse Ox 96.9 F L 63 20 87/53 100 10/26/16 17:57 10/26/16 17:57 10/26/16 17:57 10/26/16 17:57 10/26/16 17:57 Other: General appearance: Elderly man with normal weight, no acute distress. He is quite and obviously somewhat demented. Head exam: normal inspection, atraumatic Eye exam: Pupils are equal and reactive. EOMI. There is no trauma. Ear exam: Anatomically normal. Decreased auditory acuity to conversation. Oral exam: No significant oral lesions. Neck exam: normal inspection no JVD. No carotid bruit. Trachea is in midline. Respiratory exam: clear to auscultation bilaterally anteriorly with good air movement. Cardiovascular exam: Irregular rhythm with 1/6 systolic murmur. No precordial lift. No bruits over the major arteries. Chest wall/torso: Anatomically normal. Pacemaker site left upper chest is healing well. Peripheral Pulses: 2+ throughout. GI/Abdominal exam: normal bowel sounds, soft and nontender, no abdominal bruits or pulsatile masses. Musculoskeletal/Extremities exam: normal inspection without edema or cyanosis. Neurological exam: Awake and alert. There is no gross neurologic deficits. Psychiatric exam: He is a little demented. Skin exam: normal color, warm. No rashes or other skin lesions Result/EKG - Labs CBC & BMP: 10/27/16 11:26 10/27/16 04:48 Lab Results: I have reviewed the past 24 hour labs Labs: Laboratory Results - last 24 hr 10/27/16 10/27/16 10/27/16 04:48 04:48 11:26 WBC 7.6 RBC 2.96 L Hgb 10.1 L 9.5 L Hct 31.0 L 28.9 L MCV 104.7 H MCH 34 MCHC 32.6 RDW 14.4 Plt Count 211 MPV 9.8 Neut % (Auto) 54.2 Lymph % (Auto) 32.5 Swain % (Auto) 7.2 Eos % (Auto) 5.1 Baso % (Auto) 0.5 Neut # (Auto) 4.1 Lymph # (Auto) 2.5 Swain # (Auto) 0.6 Eos # (Auto) 0.4 Baso # (Auto) 0.0 Immature Gran % 0.5 Nucleated RBC % 0.0 Immature Gran # 0.04 Nucleated RBCs # 0.00 Sodium 141 Potassium 4.1 Chloride 107 Carbon Dioxide 25 Anion Gap 13.1 BUN 15 Creatinine 1.10 GFR Calculation 71 BUN/Creatinine Ratio 13.00 Glucose 125 H Calculated Osmolality 282.3 Calcium 8.3 L Magnesium 2.1 - Impressions Impressions: Patient's telemetry with atrial fibrillation controlled ventricular response with episodes ventricular pacing. Chest x-ray reveals pacemaker lead to be in good position. Quality Measures - VTE Contraindication to Pharmacological VTE Prophylaxis: Active Bleeding
--- NOTE | 2016-10-27 17:30 | XRay Report ---
History: Fever Date: 10/27/2016 Study: Chest x-ray AP portable Comparison exam: Chest x-ray October 23, 2016 There is continued cardiomegaly. The mediastinal contours are stable. The pulmonary vasculature is upper normal, though unchanged. A left subclavian transvenous pacemaker device is generally intact. There is some hazy and strandy infiltrate in the right lung base which could represent pneumonia. This is increased compared to the previous study. The left lung is grossly clear. The osseous structures are unchanged. Impression: Increasing right lower lobe infiltrate which could represent pneumonia. Otherwise unchanged PROCEDURE INTERPRETED AT [facility] DEPARTMENT OF RADIOLOGY Final Report Signed by: Dr. Radha Hutson
[2016-10-28 05:14] LABS: Hematocrit 27.8 VOL% (42.0-52.0); Hemoglobin 9.2 GM/DL (14.0-18.0)
[2016-10-28] MEDS: DEXTROSE 5% NACL 0.45% 1,000 ML IV SCH ×2 (09:11→18:45)
[2016-10-28] MEDS: DILTIAZEM CD 180 MG CAPSULE PO SCH ×2 (09:12→20:45)
[2016-10-28] MEDS: RIVASTIGMINE 1.5 MG CAPSULE PO SCH ×2 (09:12→20:47)
[2016-10-28] MEDS: TAMSULOSIN 0.4 MG CAPSULE PO SCH (09:12)
[2016-10-28] MEDS: ATORVASTATIN 10 MG TABLET PO SCH (09:12)
[2016-10-28] MEDS: LEVOTHYROXINE 75 MCG TABLET PO SCH (09:13)
[2016-10-28] MEDS: METOPROLOL TARTRATE 100 MG TABLET PO SCH ×2 (09:13→20:47)
[2016-10-28] MEDS: PANTOPRAZOLE 40 MG VIAL IV SCH ×2 (09:13→20:47)
[2016-10-28] MEDS: MEMANTINE 10 MG TABLET PO SCH ×2 (09:13→20:46)
[2016-10-28] MEDS: TIMOLOL 0.5% OPH SOLN 5 ML BOTTLE BOTH EYES SCH (09:24)
--- NOTE | 2016-10-28 11:52 | Gastrointestinal Progress Note ---
<Agnes Smithher Nicolasa - Last Filed: 10/28/16 11:49> Assessment and Plan (1) Lower GI bleed Status: Acute Assessment and plan: 10/28-continued reports of bright red rectal bleeding, last in amount and frequency, mixed with stool and without stool. No associated abdominal pain. No history of GI bleeding in past. Last colonoscopy noted 2009. Pradaxa on hold. Hemoglobin holding at 9.2. No transfusion at this time. Continue to monitor bleeding. Plan an addendum to follow by Dr. Farrar. Current Visit: Yes Gastroenterology - PN: Subj Interval history: CC: GI bleed Patient is seen awake, alert with family at bedside. Patient has a history of dementia and is a poor historian. Patient's states that patient has had some continued rectal bleeding throughout the weekend. She states that the amount is less however still remains bright red in appearance. At times he is having bleeding without stool and reports bright red oozing from the rectum. Patient denies any abdominal pain, nausea or vomiting. Patient is noted to have been discharged from our facility on 10/23 following a pacemaker implant. Patient was on Pradaxa prior to the surgery however this was held. Patient's Pradaxa, due to history of cardiac stents, was resumed on 10/26 at home and later that evening patient began having the bright red rectal bleeding. He is reported to have never had a GI bleed in the past. Last known colonoscopy was in [address] Hutson with only findings of telangiectasia. Abdomen is soft, nontender. ROS: Denies shortness of breath or chest pain Exam (Progress Note) - Constitutional Vitals: Period Temp Pulse Resp BP Sys/Villanueva Pulse Ox Last 24 Hr 97.1 F-99.7 F 59-95 18-20 102-129/57-79 92-97 General appearance: normal weight, no acute distress - Head Head exam: Present: normal inspection, normocephalic - Eye Eye exam: Present: other (Lids and conjunctive are unremarkable). Absent: scleral icterus - ENT ENT exam: Present: normal exam, normal oropharynx - Neck Neck exam: Present: normal inspection - Respiratory Respiratory exam: Present: clear to auscultation bilaterally. Absent: rales, rhonchi, wheezes - Cardiovascular Cardiovascular exam: Present: regular rate and rhythm. Absent: diastolic murmur , JVD, systolic murmur - GI/Abdominal GI/Abdominal exam: Present: normal bowel sounds, soft. Absent: ascites, distended, mass, organomegaly, tenderness - Extremities Exam Extremities exam: Present: normal inspection, full ROM - Back Exam Back exam: Present: normal inspection - Neurological Exam Neurological exam: Present: alert, oriented X3 - Psychiatric Psychiatric exam: Present: normal affect, normal mood - Skin Skin exam: Present: normal color, warm, dry Results - Labs CBC & BMP: 10/28/16 05:03 10/27/16 04:48 Lab Results: I have reviewed the past 24 hour labs <Dustin Farrar - Last Filed: 10/28/16 20:27> Exam (Progress Note) - Constitutional Vitals: Period Temp Pulse Resp BP Sys/Villanueva Pulse Ox Last 24 Hr 97.1 F-99.9 F 59-95 18-18 98-129/57-79 92-96 Results - Labs CBC & BMP: 10/28/16 12:01 10/27/16 04:48
[2016-10-28 12:16] LABS: Hemoglobin 9.8 GM/DL (14.0-18.0)
--- NOTE | 2016-10-28 15:08 | Cardiology Progress Note ---
<Keke Fernandes - Last Filed: 10/28/16 15:08> Assessment and Plan (1) Chronic atrial fibrillation Status: Chronic Assessment and plan: Patient has history of chronic atrial fibrillation. Rate is currently well controlled with diltiazem and beta-bertrand. Anticoagulation is currently on hold due to lower GI bleeding. H&H is currently stable at this time. Will continue to hold anticoagulation at this time until okay to resume from a GI standpoint. -Continue beta-bertrand -Continue diltiazem -Hold Pradaxa -Daily CBC Current Visit: Yes (2) Lower GI bleed Status: Acute Assessment and plan: Management per GI. H&H is stable at 9.8 and 30. Current Visit: Yes (3) History of placement of stent in LAD coronary artery Status: Chronic Assessment and plan: This is clinically stable this admission. No complaints of chest pain, heaviness or tightness. Current Visit: Yes (4) Cardiac pacemaker in situ Status: Acute Assessment and plan: Patient had a pacemaker placed last week after presenting to [facility] with symptomatic tachybradycardia syndrome and sick sinus syndrome. Patient is doing well post pacemaker insertion. Current Visit: No (5) Hypothyroid Status: Chronic Assessment and plan: Continue current plan of care. Current Visit: No Cardiology - PN: Subj Interval history: PRIMARY QUALITY SUPERVISOR: DR. CHRISTOPHER JOHNSON PCP: DR. JENNA REED Mr. Hamilton is an 86 year old male with PMHx chronic atrial fibrillation, hypertension, dementia, pernicious anemia, coronary artery disease, inferior MS with percutaneous coronary intervention, hypothyroidism, and anemia. Patient was recently hospitalized with symptomatic tachybradycardia syndrome and sick sinus syndrome. He had a single-chamber pacemaker placed October 22, [address] Ibrahim. Patient was then discharged home October 23, 2016 in stable condition. He is instructed to resume his Pradaxa 2 days post discharge due to his chronic atrial fibrillation. He returned on October 31, 2016 with complaints of rectal bleeding. Pradaxa on hold. Upon arrival to the ER his H&H was noted to be 28.[address] abdomen and pelvis revealed no evidence of retroperitoneal hemorrhage. Diverticulosis without jeri diverticulitis. GI has been consulted. Cardiology has been consulted for assistance with anticoagulation and chronic atrial fibrillation. Patient was seen and examined on the telemetry floor. He continues to be in chronic atrial relation with a controlled ventricular response. Heart rate is currently controlled with beta-bertrand and diltiazem. Pradaxa continues to be on hold due to GI bleeding. Patient continues to report right red blood in his stool. confirms that his last bowel movement was this morning and it seemed to have less amount of blood in previous bowel movements. H&H is stable this morning at 9.8 and 30. We will continue to monitor these daily. Patient denies abdominal pain. Pacemaker insertion site is healing well without signs of infection. Arm immobilizer intact. Vital signs are stable. Further plan is to follow per Dr. Morelos. Exam (Progress Note) - Constitutional Vitals: Period Temp Pulse Resp BP Sys/Villanueva Pulse Ox Last 24 Hr 97.1 F-99.2 F 59-95 18-20 102-129/57-79 92-97 Exam: General appearance: Elderly man with normal weight, no acute distress. He is quite and obviously somewhat demented. Head exam: normal inspection, atraumatic Eye exam: Pupils are equal and reactive. EOMI. There is no trauma. Ear exam: Anatomically normal. Decreased auditory acuity to conversation. Oral exam: No significant oral lesions. Neck exam: normal inspection no JVD. No carotid bruit. Trachea is in midline. Respiratory exam: clear to auscultation bilaterally anteriorly with good air movement. Cardiovascular exam: Irregular rhythm with 1/6 systolic murmur. No precordial lift. No bruits over the major arteries. Chest wall/torso: Anatomically normal. Pacemaker site left upper chest is healing well. Peripheral Pulses: 2+ throughout. GI/Abdominal exam: normal bowel sounds, soft and nontender, no abdominal bruits or pulsatile masses. Musculoskeletal/Extremities exam: normal inspection without edema or cyanosis. Neurological exam: Awake and alert. There is no gross neurologic deficits. Psychiatric exam: He is a little demented. Skin exam: normal color, warm. No rashes or other skin lesions Result/EKG - Labs CBC & BMP: 10/28/16 12:01 10/27/16 04:48 Lab Results: I have reviewed the past 24 hour labs Labs: Laboratory Results - last 24 hr 10/27/16 10/28/16 10/28/16 20:14 05:03 12:01 Hgb 10.0 L 9.2 L 9.8 L Hct 31.0 L 27.8 L 30.0 L Quality Measures - VTE Contraindication to Pharmacological VTE Prophylaxis: Active Bleeding <Ada Morelos - Last Filed: 10/28/16 19:46> Cardiology - PN: Subj Interval history: I personally interviewed and examined the patient, reviewed the chart and discussed medical decision-making with practitioner Dom. I have read this note and agree with the findings herein. When the patient was reevaluated, he felt warm to touch, temperature has been 99.9. We will check blood cultures, urinalysis, chest x-ray. Exam (Progress Note) - Constitutional Vitals: Period Temp Pulse Resp BP Sys/Villanueva Pulse Ox Last 24 Hr 97.1 F-99.9 F 59-95 18-20 98-129/57-79 92-96 Result/EKG - Labs CBC & BMP: 10/28/16 12:01 10/27/16 04:48 Labs: Laboratory Results - last 24 hr 10/27/16 10/28/16 10/28/16 20:14 05:03 12:01 Hgb 10.0 L 9.2 L 9.8 L Hct 31.0 L 27.8 L 30.0 L
--- NOTE | 2016-10-28 15:41 | Hospitalist Progress Note ---
Assessment and Plan - Time spent with patient Time spent with patient: Greater than 30 minutes (1) Lower GI bleed Status: Acute Assessment and plan: GI has been consulted. Appreciate the recommendations. Current Visit: Yes (2) Chronic atrial fibrillation Status: Chronic Assessment and plan: Anticoagulation has been held. Appreciate cardiology's assistance. Current Visit: Yes (3) Dementia Status: Chronic Assessment and plan: Continue current management. Current Visit: No (4) Hypothyroid Status: Chronic Assessment and plan: Continue current management. Current Visit: No (5) History of AAA (abdominal aortic aneurysm) repair Status: Chronic Assessment and plan: Family requested I perform a CT angiogram of his abdomen however it appears a CT of his abdomen with contrast was already performed in the ER. We will hold off and further testing and attempt to speak with Dr. Archer regarding this. Current Visit: Yes Hospitalist: Subjective Interval history: Patient continues to have prior blood per rectum. No further complaints. Exam - Constitutional Vitals: Period Temp Pulse Resp BP Sys/Villanueva Pulse Ox Last 24 Hr 97.1 F-99.2 F 59-95 18-20 102-129/57-79 92-97 General appearance: no acute distress - Head Head exam: Present: normocephalic, atraumatic - Eye Eye exam: Present: EOMI Pupils: Present: ALY - ENT ENT exam: Present: normal exam - Neck Neck exam: Present: normal inspection - Respiratory Respiratory exam: Present: clear to auscultation bilaterally. Absent: rhonchi, wheezes - Cardiovascular Cardiovascular exam: Present: irregular rhythm. Absent: gallop, rubs, systolic murmur - GI/Abdominal GI/Abdominal exam: Present: normal bowel sounds, soft. Absent: distended, firm , guarding, tenderness, rebound - Extremities Exam Extremities exam: Present: normal inspection. Absent: calf tenderness, edema Results - Labs CBC & BMP: 10/28/16 12:01 10/27/16 04:48 Lab Results: I have reviewed the past 24 hour labs Quality Measures - VTE Contraindication to Pharmacological VTE Prophylaxis: Active Bleeding
[2016-10-28] MEDS: LEVOFLOXACIN INJ 750 MG in PREMIX 1 EACH IV SCH (18:06)
[2016-10-28] MEDS: ACETAMINOPHEN 325 MG TABLET PO PRN (18:07)
--- NOTE | 2016-10-28 22:57 | XRay Report ---
History: Fever Date: 10/28/2016 Study: Chest x-ray AP portable Comparison exam: 10/27/2016 There is continued cardiomegaly. The mediastinal contour is unchanged. The pulmonary vasculature is grossly engorged. There is some increasing parenchymal consolidation in the right lower lobe which could represent atelectasis and/or pneumonia, compared to the previous day. There is mild bilateral pleural effusion. The left subclavian transvenous pacemaker is unchanged. The osseous structures are similar. Impression: Increasing atelectatic parenchymal consolidation right lower lobe which could represent pneumonia. Mild bilateral pleural effusion. Cardiomegaly PROCEDURE INTERPRETED AT [facility] DEPARTMENT OF RADIOLOGY Final Report Signed by: Dr. Radha Hutson
[2016-10-29] MEDS: DEXTROSE 5% NACL 0.45% 1,000 ML IV SCH ×5 (02:48→22:39)
[2016-10-29 06:27] LABS: Basophils # 0.1 10*3/uL (0.0-0.2); Basophils % 0.5 % (0.0-0.8); Eosinophils # 0.3 10*3/uL (0.0-0.87); Eosinophils % 2.8 % (0.00-10.9); Hematocrit 28.9 VOL% (42.0-52.0); Hemoglobin 9.6 GM/DL (14.0-18.0); Immature Granulocytes % 0.7 %; Immature Granulocytes Absolute 0.07 #; Lymphocytes # 2.4 10*3/uL (1.4-4.0); Lymphocytes % 24.8 % (21.2-54.2); Mean Corpuscular HGB Conc 33.2 GM/DL (32-36); Mean Corpuscular Hemoglobin 35 PG (27-34); Mean Corpuscular Volume 104.3 FL (87-102); Mean Platelet Volume 9.6 FL (9.6-12.0); Monocytes # 0.6 10*3/uL (0.11-0.8); Monocytes % 5.9 % (1.7-12.7); Neutrophils # 6.3 10*3/uL (1.4-7.4); Neutrophils % 65.3 % (38.7-73.9); Platelet Count 198 T/CUMM (130-400); Red Blood Count 2.77 MC/CUMM (3.8-5.5); White Blood Count 9.7 T/CUMM (4-12)
[2016-10-29 07:06] LABS: Calcium 8.1 MG/DL (8.5-10.1); Magnesium 1.8 MG/DL (1.8-2.4); Osmolality,Calculated 273.7 MOS/KG (273-304); Potassium 3.9 MMOL/L (3.5-5.1)
--- NOTE | 2016-10-29 08:14 | EKG Report ---
Stationary ECG Study [facility] Test Date: 10/29/2016 7:49:15 AM Pat Name: MIRZA JAEGER Department: Room: 281 Gender: M [employer] Head: Lavell : 1930 Requested by: Kira Post Order Number: [id number] Reading MD: LORAINE VILLASENOR Intervals [place] Rate: 86 P: 209 HI: 267 QRS: 53 QRSD: 94 T: 67 QT: 370 QTc: 414 Interpretive Statements ATRIAL FIBRILLATION Electronically Signed On 10-31-16 11:22:33 CDT by LORAINE VILLASENOR [email or web address]
--- NOTE | 2016-10-29 11:48 | History and Physical Update ---
History and Physical Update - Physical Exam Mental Status: alert and oriented Heart: regular rate and rhythm Lung: clear to auscultation Abdomen: within normal limits Vitals: within normal limits
[2016-10-29] MEDS ORDERED: PROPOFOL 200 MG/20 ML VIAL IV ONE (11:55)
[2016-10-29] MEDS ORDERED: LIDOCAINE 1% 5 ML VIAL ONE (11:55)
[2016-10-29] MEDS ORDERED: BISACODYL 5 MG TABLET PO ONE (12:00)
--- NOTE | 2016-10-29 12:01 | Operative Note ---
Date of procedure: 10/29/16 Pre-op diagnosis: Acute GI bleed Procedure: EGD 86-year-old gentleman admitted with rectal bleeding on chronic anticoagulant anticoagulation now for upper endoscopy to look for sources of active bleeding. Informed consent was obtained He was sedated with MAC anesthesia per anesthesia protocol. Patient was placed in left lateral decubitus position the Olympus flexible video upper endoscope was inserted into the oral cavity under direct vision the esophagus was intubated. Findings: Esophagus-normal proximal and mid esophageal mucosa distal esophagus with moderate hiatal hernia. No esophagitis, Gonzalez's or varices were identified. Stomach-normal insufflation normal mucosa to direct and retroflexed views of the body fundus cardia and antrum of the stomach. Pylorus-normal Duodenum-normal for the bulb duodenum to the third portion of the duodenum. Postop diagnosis: 1. Gastroesophageal reflux disease-continue PPI treatment antireflux precautions 2. Acute GI bleed no clear evidence for GI bleeding on EGD will plan colonoscopy in a.m. Anesthesia: MAC Surgeon / Physician: Dustin Farrar Estimated blood loss: none Specimens: none sent Condition: stable Disposition: post procedure unit Results - Labs CBC & BMP: 10/29/16 05:17 10/29/16 05:17 Discharge Plan - Discharge Medications No Action Aspirin [Ecotrin] 81 mg PO DAILY Cyanocobalamin Inj [Vitamin B12 Inj] 1,000 mcg IM Q30D Dabigatran [Pradaxa] 150 mg PO BID Levothyroxine Tab [Synthroid Tab] 75 mcg PO DAILY Memantine [Namenda] 10 mg PO BID Register-3S/Dha/Epa/Fish Oil [Fish Oil 1,200 mg Softgel] 1 each PO DAILY Rivastigmine Tartrate [Rivastigmine] 1.5 mg PO BID Tamsulosin HCl 0.4 mg PO DAILY Diltiazem Cd Cap [Cardizem CD] 180 mg PO BID #60 capsule Metoprolol Tartrate Tab [Lopressor Tab] 100 mg PO BID #60 tablet Atorvastatin [Lipitor] 10 mg PO DAILY Timolol 0.5% Oph Soln [Timoptic 0.5%] 1 drop BOTH EYES DAILY ACETAMIN/diphenhydrAMIN 500-25 [Tylenol PM] 2 tablet PO BEDTIME - Follow Up or Referral - Forms/Instructions
--- NOTE | 2016-10-29 12:11 | Anesthesia Post-Op ---
Anesthesia Post OP - Post Ansesthetic Evaluation Patient seen in post op: Yes Resp: within normal limits CV: within normal limits Mental: other (no change from preop) Temp: within normal limits [id number]: within normal limits Nausea and Vomiting: within normal limits Pain: within normal limits
--- NOTE | 2016-10-29 14:21 | Hospitalist Progress Note ---
Assessment and Plan - Time spent with patient Time spent with patient: Greater than 30 minutes (1) Pneumonia Status: Acute Assessment and plan: Continue Levaquin. Current Visit: Yes (2) Lower GI bleed Status: Acute Assessment and plan: EGD unremarkable, colonoscopy tomorrow. Current Visit: Yes (3) Chronic atrial fibrillation Status: Chronic Assessment and plan: Anticoagulation has been held. Appreciate cardiology's assistance. Current Visit: Yes (4) Dementia Status: Chronic Assessment and plan: Continue current management. Current Visit: No (5) Hypothyroid Status: Chronic Assessment and plan: Continue current management. Current Visit: No (6) History of AAA (abdominal aortic aneurysm) repair Status: Chronic Assessment and plan: Sees Dr Murillo. Current Visit: Yes Exam - Constitutional Vitals: Period Temp Pulse Resp BP Sys/Villanueva Pulse Ox Last 24 Hr 98.2 F-99.9 F 69-96 14-18 91-123/53-80 90-96 General appearance: no acute distress - Head Head exam: Present: normocephalic, atraumatic - Eye Eye exam: Present: EOMI Pupils: Present: ALY - ENT ENT exam: Present: normal exam - Neck Neck exam: Present: normal inspection - Respiratory Respiratory exam: Present: clear to auscultation bilaterally. Absent: rhonchi, wheezes - Cardiovascular Cardiovascular exam: Present: regular rate and rhythm. Absent: gallop, rubs, systolic murmur - GI/Abdominal GI/Abdominal exam: Present: normal bowel sounds, soft. Absent: distended, firm , guarding, tenderness, rebound - Extremities Exam Extremities exam: Present: normal inspection. Absent: calf tenderness, edema Results - Labs CBC & BMP: 10/29/16 05:17 10/29/16 05:17 Lab Results: I have reviewed the past 24 hour labs Quality Measures - VTE Contraindication to Pharmacological VTE Prophylaxis: Active Bleeding
[2016-10-29] MEDS: PANTOPRAZOLE 40 MG VIAL IV SCH ×2 (15:02→22:39)
[2016-10-29] MEDS: RIVASTIGMINE 1.5 MG CAPSULE PO SCH ×2 (15:03→22:38)
[2016-10-29] MEDS: TAMSULOSIN 0.4 MG CAPSULE PO SCH (15:03)
[2016-10-29] MEDS: LEVOTHYROXINE 75 MCG TABLET PO SCH (15:04)
[2016-10-29] MEDS: MEMANTINE 10 MG TABLET PO SCH ×2 (15:04→22:39)
--- NOTE | 2016-10-29 15:04 | Cardiology Progress Note ---
Gamal Sharma Vanessa, RN, am scribing for, and in the presence of, Ada Morelos MD 15:03. Assessment and Plan - Time spent with patient Time spent with patient: Greater than 30 minutes (1) Lower GI bleed Status: Acute Assessment and plan: H/H remains stable. Status post EGD per Dr. Farrar earlier this morning which revealed GERD but no clear source for his GI bleeding. Colonoscopy is planned for tomorrow morning. Current Visit: Yes (2) Cardiac pacemaker in situ Status: Acute Assessment and plan: Single chamber pacemaker implanted on 10/22/[address] Ibrahim after patient presented with sick sinus syndrome and symptomatic tachybradycardic syndrome. Symptoms have since resolved. Device interrogated yesterday afternoon per [employer] inventory representative and found to functioning perfectly. Current Visit: No (3) Chronic atrial fibrillation Status: Chronic Assessment and plan: Known history of chronic atrial fib. Ventricular response is currently adequately controlled with Cardizem and Lopressor, and these are continued. Patient anticoagulated with Pradaxa for stroke prevention. Last dose was on . Anticoagulant currently on hold due to GI bleeding, and we will reinitiate this when ok from a GI standpoint. H/H is currently stable. We will monitor CBC daily. Current Visit: Yes (4) CAD (coronary artery disease) Status: Chronic Assessment and plan: Known history of CAD with previous coronary artery stenting. He has experienced no chest pain, shortness of breath, or other anginal complaint. This appears to be stable at this time without clinical findings for ACS. Current Visit: No (5) History of placement of stent in LAD coronary artery Status: Chronic Assessment and plan: Appears to be stable. Current Visit: Yes (6) History of right coronary artery stent placement Status: Chronic Assessment and plan: Appears to be stable. Current Visit: Yes (7) Essential hypertension Status: Chronic Assessment and plan: Blood pressure continues to be well controlled. Continue current medication regimen. Current Visit: No (8) Hyperlipidemia Status: Chronic Assessment and plan: Continue statin. Current Visit: No (9) Dementia Status: Chronic Assessment and plan: Continue Namenda. Current Visit: No (10) Hypothyroid Status: Chronic Assessment and plan: Continue Synthroid. Current Visit: No (11) History of AAA (abdominal aortic aneurysm) repair Status: Chronic Current Visit: Yes Cardiology - PN: Subj Interval history: PRIMARY PROJECT PLANNER: DR. CHRISTOPHER JOHNSON PCP: DR. JENNA REED Mr. Hamilton is sleeping soundly in bed this afternoon, and he appears to be in no obvious distress. His is present at bedside. He will rouse to verbal and light tactile stimuli, denies discomfort or complaint at this time, and quickly falls back to sleep. He is status post EGD per Dr. Farrar earlier this morning. EGD revealed GERD but no clear source for acute bleeding. He will undergo colonoscopy in the morning for further evaluation. He has had no acute changes or new findings in patient's hemodynamic status overnight. Atrial fibrillation per telemetry review with an overall controlled ventricular response, pulse rate in the 80s. Blood pressure is stable. Low grade temp of 99.9 is improved today. reports the patient continues to have bright red blood per rectum, but it has improved as it is currently not being seen with bowel movement. Labs reviewed. H&H remained stable. Electrolytes are within acceptable range. Exam (Progress Note) - Constitutional Vitals: Period Temp Pulse Resp BP Sys/Villanueva Pulse Ox Last 24 Hr 98.2 F-99.9 F 69-96 14-18 91-123/53-80 90-96 Exam: General appearance: Elderly, normal weight, no acute distress. Head exam: normal inspection, atraumatic. no contusion, hematoma Eye exam: Pupils are equal and reactive. EOMI. no laceration to eyelids, periorbital swelling Neck exam: normal inspection. midline trachea. no bruit, tenderness, or mass. Respiratory exam: clear to auscultation bilaterally. No rhonchi, stridor, wheeze. Cardiovascular exam: Irregular rhythm with 1/6 systolic murmur. No precordial lift. No bruits over the major arteries. Chest wall/torso: Anatomically normal. Pacemaker site left chest wall with dry /intact incision and appears to be healing well. Peripheral Pulses: 2+ throughout. GI/Abdominal exam: normal bowel sounds, soft and nontender, no abdominal bruits or pulsatile masses. Musculoskeletal/Extremities exam: normal inspection without edema, calf tenderness. He does not have full ROM. Neurological exam: Awake and alert. No resting tremor. Psychiatric exam: Quiet, does not conversate much. History of dementia. Skin exam: normal color, warm, dry. No rashes or other skin lesions Result/EKG - Labs CBC & BMP: 10/29/16 05:17 10/29/16 05:17 Lab Results: I have reviewed the past 24 hour labs Labs: Laboratory Results - last 24 hr 10/29/16 10/29/16 05:17 05:17 WBC 9.7 RBC 2.77 L Hgb 9.6 L Hct 28.9 L MCV 104.3 H MCH 35 H MCHC 33.2 RDW 14.0 Plt Count 198 MPV 9.6 Neut % (Auto) 65.3 Lymph % (Auto) 24.8 Mckean % (Auto) 5.9 Eos % (Auto) 2.8 Baso % (Auto) 0.5 Neut # (Auto) 6.3 Lymph # (Auto) 2.4 Mckean # (Auto) 0.6 Eos # (Auto) 0.3 Baso # (Auto) 0.1 Immature Gran % 0.7 Nucleated RBC % 0.0 Immature Gran # 0.07 Nucleated RBCs # 0.00 Sodium 138 Potassium 3.9 Chloride 104 Carbon Dioxide 24 Anion Gap 13.9 BUN 9 Creatinine 1.00 GFR Calculation 80 BUN/Creatinine Ratio 9.00 Glucose 107 H Calculated Osmolality 273.7 Calcium 8.1 L Magnesium 1.8 - EKG EKG results: interpreted by me, no acute changes EKG shows: sinus rhythm Quality Measures - VTE Contraindication to Pharmacological VTE Prophylaxis: Active Bleeding IJethro Jennifer, MD, personally performed the services described in this documentation, ascribed by Sparkle Yeung RN in my presence, and it is both accurate and complete 503 .
[2016-10-29] MEDS: DILTIAZEM CD 180 MG CAPSULE PO SCH ×2 (15:05→22:37)
[2016-10-29] MEDS: ATORVASTATIN 10 MG TABLET PO SCH (15:05)
[2016-10-29] MEDS: METOPROLOL TARTRATE 100 MG TABLET PO SCH ×2 (15:06→22:38)
[2016-10-29] MEDS: ACETAMINOPHEN 325 MG TABLET PO PRN ×2 (17:45→21:30)
[2016-10-29] MEDS: LEVOFLOXACIN INJ 750 MG in PREMIX 1 EACH IV SCH (17:47)
[2016-10-29] MEDS ORDERED: POLYETHYLENE GLYCOL POWDER 255 GM BOTTLE PO ONE (18:00)
[2016-10-29] MEDS: TIMOLOL 0.5% OPH SOLN 5 ML BOTTLE BOTH EYES SCH (21:30)
[2016-10-30 04:52] LABS: Basophils % 0.5 % (0.0-0.8); Eosinophils # 0.4 10*3/uL (0.0-0.87); Eosinophils % 6.4 % (0.00-10.9); Hematocrit 27.3 VOL% (42.0-52.0); Hemoglobin 9.1 GM/DL (14.0-18.0); Immature Granulocytes % 0.5 %; Immature Granulocytes Absolute 0.03 #; Lymphocytes # 2.3 10*3/uL (1.4-4.0); Lymphocytes % 36.8 % (21.2-54.2); Mean Corpuscular HGB Conc 33.3 GM/DL (32-36); Mean Corpuscular Hemoglobin 34 PG (27-34); Mean Corpuscular Volume 101.5 FL (87-102); Mean Platelet Volume 9.6 FL (9.6-12.0); Monocytes # 0.5 10*3/uL (0.11-0.8); Monocytes % 8.6 % (1.7-12.7); Neutrophils % 47.2 % (38.7-73.9); Platelet Count 196 T/CUMM (130-400); Red Blood Count 2.69 MC/CUMM (3.8-5.5); Red Cell Distribution Width 14.3 % (9.3-17.3); White Blood Count 6.3 T/CUMM (4-12)
[2016-10-30] MEDS: DEXTROSE 5% NACL 0.45% 1,000 ML IV SCH ×3 (05:19→13:07)
[2016-10-30 05:25] LABS: Calcium 8.2 MG/DL (8.5-10.1); Magnesium 1.9 MG/DL (1.8-2.4); Osmolality,Calculated 278.3 MOS/KG (273-304); Potassium 3.5 MMOL/L (3.5-5.1)
[2016-10-30 08:29] LABS: Apearance,Urine CLEAR (Clear); Bilirubin,Urine Negative (Negative); Blood, Urine Moderate mg/dL (Negative); Glucose,Urine (UA) Negative (Negative); Ketones,Urine Negative (Negative); Mucus,Urine Occasional /LPF (Occasional); Nitrite,Urine Negative (Negative); Protein,Urine Negative; RBC,Urine 3 /HPF (0-4); Urine Color Straw (Yellow); Urine Specific Gravity 1.003 (1.001-1.035); Urine Urobilinogen < 2.0 EU/DL (0.2-1.0); WBC,Urine <1 /HPF (0-6)
[2016-10-30] MEDS: PANTOPRAZOLE 40 MG VIAL IV SCH ×2 (08:30→21:40)
[2016-10-30] MEDS: DILTIAZEM CD 180 MG CAPSULE PO SCH ×2 (08:36→21:38)
[2016-10-30] MEDS: METOPROLOL TARTRATE 100 MG TABLET PO SCH ×2 (08:36→21:40)
[2016-10-30] MEDS: ACETAMINOPHEN 325 MG TABLET PO PRN ×3 (09:47→21:40)
[2016-10-30] MEDS: TIMOLOL 0.5% OPH SOLN 5 ML BOTTLE BOTH EYES SCH (10:31)
[2016-10-30] MEDS ORDERED: VANCOMYCIN INJ 1,000 MG in SODIUM CHLORIDE 0.9% 250 ML IV ONE (11:00)
[2016-10-30] MEDS ORDERED: LIDOCAINE 100 MG/5 ML SYRINGE ONE (11:48)
[2016-10-30] MEDS ORDERED: PROPOFOL 200 MG/20 ML VIAL IV ONE (11:48)
--- NOTE | 2016-10-30 11:58 | Operative Note ---
Date of procedure: 10/30/16 Pre-op diagnosis: Hematochezia Procedure: Colonoscopy-incomplete 86-year-old gentleman admitted with hematochezia now for colonoscopy to further evaluate. Informed consent was obtained the patient and his family. He was sedated with MAC anesthesia per anesthesia protocol. Digital exam no masses were felt prostate was normal. The Olympus flexible video colonoscope surname canal advanced to approximately 20 cm. Large amount of solid stool is encountered. The procedure was terminated due to inadequate prep. Postop diagnosis: Incomplete colonoscopy secondary to an adequate prep will re-prep for colonoscopy in a.m. Anesthesia: MAC Surgeon / Physician: Dustin Farrar Estimated blood loss: none Specimens: none sent Condition: stable Disposition: post procedure unit Results - Labs CBC & BMP: 10/30/16 04:16 10/30/16 04:16 Discharge Plan - Discharge Medications No Action Aspirin [Ecotrin] 81 mg PO DAILY Cyanocobalamin Inj [Vitamin B12 Inj] 1,000 mcg IM Q30D Dabigatran [Pradaxa] 150 mg PO BID Levothyroxine Tab [Synthroid Tab] 75 mcg PO DAILY Memantine [Namenda] 10 mg PO BID [place]-3S/Dha/Epa/Fish Oil [Fish Oil 1,200 mg Softgel] 1 each PO DAILY Rivastigmine Tartrate [Rivastigmine] 1.5 mg PO BID Tamsulosin HCl 0.4 mg PO DAILY Diltiazem Cd Cap [Cardizem CD] 180 mg PO BID #60 capsule Metoprolol Tartrate Tab [Lopressor Tab] 100 mg PO BID #60 tablet Atorvastatin [Lipitor] 10 mg PO DAILY Timolol 0.5% Oph Soln [Timoptic 0.5%] 1 drop BOTH EYES BEDTIME ACETAMIN/diphenhydrAMIN 500-25 [Tylenol PM] 2 tablet PO BEDTIME - Follow Up or Referral - Forms/Instructions
[2016-10-30] MEDS ORDERED: BISACODYL 5 MG TABLET PO ONE (12:00)
--- NOTE | 2016-10-30 12:04 | Anesthesia Post-Op ---
Anesthesia Post OP - Post Ansesthetic Evaluation Patient seen in post op: Yes Resp: within normal limits CV: within normal limits Mental: within normal limits Temp: within normal limits [id number]: within normal limits Nausea and Vomiting: within normal limits Pain: within normal limits
[2016-10-30] MEDS: VANCOMYCIN INJ 1,250 MG in SODIUM CHLORIDE 0.9% 250 ML IV SCH (13:12)
[2016-10-30] MEDS: MEMANTINE 10 MG TABLET PO SCH ×2 (13:14→21:40)
[2016-10-30] MEDS: TAMSULOSIN 0.4 MG CAPSULE PO SCH (13:14)
[2016-10-30] MEDS: RIVASTIGMINE 1.5 MG CAPSULE PO SCH ×2 (13:14→21:41)
[2016-10-30] MEDS: ATORVASTATIN 10 MG TABLET PO SCH (13:14)
[2016-10-30] MEDS: LEVOTHYROXINE 75 MCG TABLET PO SCH (13:14)
[2016-10-30] MEDS ORDERED: MAGNESIUM CITRATE 300 ML BOTTLE PO ONE (14:00)
--- NOTE | 2016-10-30 15:24 | Cardiology Progress Note ---
<Keke Fernandes - Last Filed: 10/30/16 15:20> Assessment and Plan (1) Chronic atrial fibrillation Status: Chronic Assessment and plan: Patient has history of chronic atrial fibrillation. Rate is currently well controlled with diltiazem and beta-bertrand. Anticoagulation is currently on hold due to lower GI bleeding. Will continue to hold anticoagulation at this time until okay to resume from a GI standpoint. H/H is currently stable. We will monitor CBC daily. -Continue beta-bertrand -Continue diltiazem -Hold Pradaxa -Daily CBC Current Visit: Yes (2) Lower GI bleed Status: Acute Assessment and plan: Management per GI. H&H is stable at 9.1 and 27.3. Current Visit: Yes (3) History of placement of stent in LAD coronary artery Status: Chronic Assessment and plan: This is clinically stable this admission. No complaints of chest pain, heaviness or tightness. Current Visit: Yes (4) Cardiac pacemaker in situ Status: Acute Assessment and plan: Single chamber pacemaker implanted on 10/22/[address] Ibrahim after patient presented with sick sinus syndrome and symptomatic tachybradycardic syndrome. Symptoms have since resolved. Device interrogated this admission per [employer] access services representative and found to functioning perfectly. Current Visit: No (5) Hypothyroid Status: Chronic Assessment and plan: Continue current plan of care. Current Visit: No (6) Dementia Status: Chronic Assessment and plan: Continue current plan of care with Namenda. Current Visit: No (7) Essential hypertension Status: Chronic Assessment and plan: This is clinically stable. Continue current plan of care. Current Visit: No (8) Hyperlipidemia Status: Chronic Assessment and plan: Continue current plan of care with lipid lowering agent. Current Visit: No (9) Positive blood culture Status: Acute Assessment and plan: Cultures are positive for gram-positive cocci. Continue current plan of care with antibiotics. Current Visit: Yes Cardiology - PN: Subj Interval history: PRIMARY YACHT HAND: DR. CHRISTOPHER JOHNSON PCP: DR. JENNA REED Mr. Hamilton is an 86 year old male with PMHx chronic atrial fibrillation, hypertension, dementia, pernicious anemia, coronary artery disease, inferior MA with percutaneous coronary intervention, hypothyroidism, and anemia. Patient was recently hospitalized with symptomatic tachybradycardia syndrome and sick sinus syndrome. He had a single-chamber pacemaker placed October 22, [address] Ibrahim. Patient was then discharged home October 23, 2016 in stable condition. He is instructed to resume his Pradaxa 2 days post discharge due to his chronic atrial fibrillation. He returned on October 31, 2016 with complaints of rectal bleeding. Pradaxa on hold. Upon arrival to the ER his H&H was noted to be 28.[address] abdomen and pelvis revealed no evidence of retroperitoneal hemorrhage. Diverticulosis without jeri diverticulitis. GI has been consulted. EGD revealed GERD but no clear source for acute bleeding. He underwent colonoscopy this morning for further evaluation. However, colonoscopy was incomplete secondary to inadequate prep. Will will be re- prepped for C scope in the morning. Cardiology has been consulted for assistance with anticoagulation and chronic atrial fibrillation. He was seen and examined on telemetry. He is resting in bed in no acute distress. Patient remains in atrial fibrillation with controlled ventricular response. Anticoagulation continues to be on hold. Patient's reports that he has had no further bleeding from rectum. Patient is without chest pain , heaviness and tightness. He is currently receiving prep for colonoscopy tomorrow. Blood cultures are positive for gram-positive cocci. Patient is currently receiving levofloxacin and vancomycin. Patient is hemodynamically stable. H&H is 9.1 and 27.3. GI is following. We will continue to monitor patient closely on telemetry. Further plan an addendum to follow per Dr. Morelos. Exam (Progress Note) - Constitutional Vitals: Period Temp Pulse Resp BP Sys/Villanueva Pulse Ox Last 24 Hr 97.0 F-98.3 F 60-110 16-22 82-121/47-73 91-97 Exam: General appearance: Elderly, normal weight, no acute distress. Head exam: normal inspection, atraumatic. no contusion, hematoma Eye exam: Pupils are equal and reactive. EOMI. no laceration to eyelids, periorbital swelling Neck exam: normal inspection. midline trachea. no bruit, tenderness, or mass. Respiratory exam: clear to auscultation bilaterally. No rhonchi, stridor, wheeze. Cardiovascular exam: Irregular rhythm with 1/6 systolic murmur. No precordial lift. No bruits over the major arteries. Chest wall/torso: Anatomically normal. Pacemaker site left chest wall with dry /intact incision and appears to be healing well. Peripheral Pulses: 2+ throughout. GI/Abdominal exam: normal bowel sounds, soft and nontender, no abdominal bruits or pulsatile masses. Musculoskeletal/Extremities exam: normal inspection without edema, calf tenderness. He does not have full ROM. Neurological exam: Awake and alert. No resting tremor. Psychiatric exam: Quiet, does not conversate much. History of dementia. Skin exam: normal color, warm, dry. No rashes or other skin lesions Result/EKG - Labs CBC & BMP: 10/30/16 04:16 10/30/16 04:16 Lab Results: I have reviewed the past 24 hour labs Labs: Laboratory Results - last 24 hr 10/30/16 10/30/16 10/30/16 04:16 04:16 08:22 WBC 6.3 D RBC 2.69 L Hgb 9.1 L Hct 27.3 L MCV 101.5 MCH 34 MCHC 33.3 RDW 14.3 Plt Count 196 MPV 9.6 Neut % (Auto) 47.2 Lymph % (Auto) 36.8 [place] % (Auto) 8.6 Eos % (Auto) 6.4 Baso % (Auto) 0.5 Neut # (Auto) 3.0 Lymph # (Auto) 2.3 [place] # (Auto) 0.5 Eos # (Auto) 0.4 Baso # (Auto) 0.0 Immature Gran % 0.5 Nucleated RBC % 0.0 Immature Gran # 0.03 Nucleated RBCs # 0.00 Sodium 141 Potassium 3.5 Chloride 107 Carbon Dioxide 25 Anion Gap 12.5 BUN 8 Creatinine 0.90 GFR Calculation 91 BUN/Creatinine Ratio 8.00 Glucose 107 H Calculated Osmolality 278.3 Calcium 8.2 L Magnesium 1.9 Urine Color Straw Urine Appearance Clear Urine pH 7.0 Ur Specific [place] 1.003 Urine Protein Negative Urine Glucose (UA) Negative Urine Ketones Negative Urine Blood Moderate Urine Nitrate Negative Urine Bilirubin Negative Urine Urobilinogen < 2.0 H Urine Leukocytes Negative Urine RBC 3 Urine WBC <1 Urine Mucus Occasional Ur Culture Indicated? Not indicated Quality Measures - VTE Contraindication to Pharmacological VTE Prophylaxis: Active Bleeding <Ada Morelos - Last Filed: 10/30/16 21:26> Assessment and Plan (1) Lower GI bleed Status: Acute Current Visit: Yes (2) Cardiac pacemaker in situ Status: Acute Current Visit: No (3) Chronic atrial fibrillation Status: Chronic Current Visit: Yes (4) CAD (coronary artery disease) Status: Chronic Current Visit: No (5) History of placement of stent in LAD coronary artery Status: Chronic Current Visit: Yes (6) History of right coronary artery stent placement Status: Chronic Current Visit: Yes (7) Essential hypertension Status: Chronic Current Visit: No (8) Hyperlipidemia Status: Chronic Current Visit: No (9) Dementia Status: Chronic Current Visit: No (10) Hypothyroid Status: Chronic Current Visit: No (11) History of AAA (abdominal aortic aneurysm) repair Status: Chronic Current Visit: Yes Cardiology - PN: Subj Interval history: I personally interviewed and examined the patient, reviewed the chart and discussed medical decision-making with practitioner Dom. I have read this note and agree with the findings herein. No new recommendations. Exam (Progress Note) - Constitutional Vitals: Period Temp Pulse Resp BP Sys/Villanueva Pulse Ox Last 24 Hr 97.0 F-97.8 F 60-110 16-22 99-150/56-82 91-97 Result/EKG - Labs CBC & BMP: 10/30/16 04:16 10/30/16 04:16 Labs: Laboratory Results - last 24 hr 10/30/16 10/30/16 10/30/16 04:16 04:16 08:22 WBC 6.3 D RBC 2.69 L Hgb 9.1 L Hct 27.3 L MCV 101.5 MCH 34 MCHC 33.3 RDW 14.3 Plt Count 196 MPV 9.6 Neut % (Auto) 47.2 Lymph % (Auto) 36.8 [place] % (Auto) 8.6 Eos % (Auto) 6.4 Baso % (Auto) 0.5 Neut # (Auto) 3.0 Lymph # (Auto) 2.3 [place] # (Auto) 0.5 Eos # (Auto) 0.4 Baso # (Auto) 0.0 Immature Gran % 0.5 Nucleated RBC % 0.0 Immature Gran # 0.03 Nucleated RBCs # 0.00 Sodium 141 Potassium 3.5 Chloride 107 Carbon Dioxide 25 Anion Gap 12.5 BUN 8 Creatinine 0.90 GFR Calculation 91 BUN/Creatinine Ratio 8.00 Glucose 107 H Calculated Osmolality 278.3 Calcium 8.2 L Magnesium 1.9 Urine Color Straw Urine Appearance Clear Urine pH 7.0 Ur Specific [place] 1.003 Urine Protein Negative Urine Glucose (UA) Negative Urine Ketones Negative Urine Blood Moderate Urine Nitrate Negative Urine Bilirubin Negative Urine Urobilinogen < 2.0 H Urine Leukocytes Negative Urine RBC 3 Urine WBC <1 Urine Mucus Occasional Ur Culture Indicated? Not indicated
[2016-10-30] MEDS: LEVOFLOXACIN INJ 750 MG in PREMIX 1 EACH IV SCH (17:38)
--- NOTE | 2016-10-30 19:39 | Hospitalist Progress Note ---
Assessment and Plan (1) Chronic anticoagulation Status: Acute Assessment and plan: On Pradaxa Current Visit: Yes (2) Bacteremia Status: Acute Assessment and plan: Gram-positive cocci in pairs and chains. On Levaquin and vancomycin. Follow- up strep urine antigen and chest x-ray. Continue antibiotics. Current Visit: Yes (3) Chronic atrial fibrillation Status: Chronic Current Visit: Yes (4) Lower GI bleed Status: Acute Assessment and plan: Follow-up repeat colonoscopy. Current Visit: Yes (5) Pneumonia Status: Acute Assessment and plan: Repeat chest x-ray in a.m. Follow-up urine antigens. Current Visit: Yes Hospitalist: Subjective Interval history: Patient seen and examined. Case discussed with at the bedside. He underwent colonoscopy today but will have to have another tomorrow due to inadequate prepping. His blood cultures are positive for gram-positive cocci in pairs and chains suspicious for streptococcal species. The patient is receiving Levaquin and vancomycin. Will need to follow-up final cultures. Strep urine antigen has been ordered as well as a repeat chest x-ray for the morning. No other complaints voiced by the patient or his family member. Exam - Constitutional Vitals: Period Temp Pulse Resp BP Sys/Villanueva Pulse Ox Last 24 Hr 97.0 F-97.8 F 60-110 16-22 82-121/47-73 91-97 Exam: Constitutional System: No distress. No tremulousness. Head: Normocephalic, atraumatic. Ears, Nose and Throat System: No pain or tenderness. No epistaxis or discharge Eyes System: Pupils equal, round, and reactive. Extraocular muscles intact. Neck: Supple, without adenopathy, No jugular venous distention. No thyromegaly, neck mass, or prior surgery apparent. Respiratory System: Chest clear to auscultation. Cardiovascular System: Heart with regular rate and rhythm. No murmur. GI System: Abdomen soft, nontender. Normo active bowel sounds present. Musculoskeletal System: limbs with no pedal edema. Full distal pulses. Neurological System: No discernable sensory deficit. No aphasia Psychiatric System: Conversation is rational Results - Labs CBC & BMP: 10/30/16 04:16 10/30/16 04:16 Lab Results: I have reviewed the past 24 hour labs Quality Measures - VTE Contraindication to Pharmacological VTE Prophylaxis: Active Bleeding
[2016-10-31] MEDS: DEXTROSE 5% NACL 0.45% 1,000 ML IV SCH ×4 (01:04→23:45)
[2016-10-31] MEDS: TIMOLOL 0.5% OPH SOLN 5 ML BOTTLE BOTH EYES SCH ×2 (01:04→21:47)
[2016-10-31] MEDS: VANCOMYCIN INJ 1,250 MG in SODIUM CHLORIDE 0.9% 250 ML IV SCH ×3 (01:15→23:36)
[2016-10-31 05:25] LABS: Basophils % 0.4 % (0.0-0.8); Eosinophils # 0.5 10*3/uL (0.0-0.87); Eosinophils % 6.3 % (0.00-10.9); Hematocrit 28.4 VOL% (42.0-52.0); Hemoglobin 9.4 GM/DL (14.0-18.0); Immature Granulocytes % 0.3 %; Immature Granulocytes Absolute 0.02 #; Lymphocytes # 2.4 10*3/uL (1.4-4.0); Lymphocytes % 33.9 % (21.2-54.2); Mean Corpuscular HGB Conc 33.1 GM/DL (32-36); Mean Corpuscular Hemoglobin 34 PG (27-34); Mean Corpuscular Volume 102.5 FL (87-102); Mean Platelet Volume 9.5 FL (9.6-12.0); Monocytes # 0.5 10*3/uL (0.11-0.8); Monocytes % 7.4 % (1.7-12.7); Neutrophils # 3.7 10*3/uL (1.4-7.4); Neutrophils % 51.7 % (38.7-73.9); Platelet Count 203 T/CUMM (130-400); Red Blood Count 2.77 MC/CUMM (3.8-5.5); White Blood Count 7.2 T/CUMM (4-12)
[2016-10-31 06:13] LABS: Calcium 8.2 MG/DL (8.5-10.1); Osmolality,Calculated 277.3 MOS/KG (273-304); Potassium 3.4 MMOL/L (3.5-5.1)
--- NOTE | 2016-10-31 06:35 | XRay Report ---
XR chest 1V portable Indication: Pneumonia Comparison: Chest x-ray 10/28/2016 Technique: Portable AP chest was performed. Findings: Right-sided pleural effusion is increased in size since comparison study. Worsened airspace disease in the right mid lung as well as right lung base additionally is present. Minimal blunting of the left costophrenic angle is suggested. Cardiac pacemaker, cardiomediastinal silhouette, bony structures and soft tissues demonstrate little change. Impression: 1. Worsened airspace disease right lung and right-sided pleural effusion have developed since comparison study. Otherwise little change in the chest. 10/31/2016 6:32 AM PROCEDURE INTERPRETED AT [facility] DEPARTMENT OF RADIOLOGY Final Report Signed by: Dr. Johnnie Juarez
[2016-10-31] MEDS: ACETAMINOPHEN 325 MG TABLET PO PRN ×2 (08:59→21:38)
[2016-10-31] MEDS: TAMSULOSIN 0.4 MG CAPSULE PO SCH (08:59)
[2016-10-31] MEDS: RIVASTIGMINE 1.5 MG CAPSULE PO SCH ×2 (08:59→21:39)
[2016-10-31] MEDS: METOPROLOL TARTRATE 100 MG TABLET PO SCH ×2 (09:00→21:38)
[2016-10-31] MEDS: MEMANTINE 10 MG TABLET PO SCH ×2 (09:00→21:38)
[2016-10-31] MEDS: LEVOTHYROXINE 75 MCG TABLET PO SCH (09:00)
[2016-10-31] MEDS: ATORVASTATIN 10 MG TABLET PO SCH (09:00)
[2016-10-31] MEDS: PANTOPRAZOLE 40 MG VIAL IV SCH ×2 (09:00→21:39)
[2016-10-31] MEDS: DILTIAZEM CD 180 MG CAPSULE PO SCH ×2 (09:00→21:38)
[2016-10-31] MEDS ORDERED: LIDOCAINE 2% 5 ML VIAL ONE (12:05)
[2016-10-31] MEDS ORDERED: PROPOFOL 200 MG/20 ML VIAL IV ONE (12:05)
--- NOTE | 2016-10-31 12:24 | Operative Note ---
Date of procedure: 10/31/16 Pre-op diagnosis: Hematochezia Procedure: Colonoscopy 86-year-old gentleman with hematochezia after being started on Pradaxa. Now for colonoscopy to further evaluate colon was rescheduled from yesterday due to inadequate prep. Informed symptoms obtained patient's family He was sedated with MAC anesthesia per anesthesia protocol. Patient placed in left lateral decubitus position the Olympus flexible video colonoscope [place] canal advanced under direct vision to the level of the cecum. Prep remains poor with limited visibility for polyps. No large polyps or masses were identified but smaller lesions cannot be excluded. Findings cecum and ascending transverse descending sigmoid colon were grossly unremarkable with no large polyps or masses exam again is markedly limited by poor prep. Diverticulosis was observed in the sigmoid colon and descending colon. This is likely source of his hematochezia. Rectum normal dye retroflexed views. The procedure terminated placed our procedure well his discharge recovery in good condition. Postop diagnosis 1. Diverticulosis coli maintain adequate fiber and fluid intake 2. Poor prep unable to assess for small lesions or vascular malformations high risk for resumption of Pradaxa from a bleeding standpoint but benefit may out weigh risk. Will defer this to his cardiac physicians. Anesthesia: MAC Surgeon / Physician: Dustin Farrar Estimated blood loss: none Specimens: none sent Condition: stable Disposition: post procedure unit Results - Labs CBC & BMP: 10/31/16 04:39 10/31/16 04:39 Discharge Plan - Discharge Medications No Action Aspirin [Ecotrin] 81 mg PO DAILY Cyanocobalamin Inj [Vitamin B12 Inj] 1,000 mcg IM Q30D Dabigatran [Pradaxa] 150 mg PO BID Levothyroxine Tab [Synthroid Tab] 75 mcg PO DAILY Memantine [Namenda] 10 mg PO BID [place]-3S/Dha/Epa/Fish Oil [Fish Oil 1,200 mg Softgel] 1 each PO DAILY Rivastigmine Tartrate [Rivastigmine] 1.5 mg PO BID Tamsulosin HCl 0.4 mg PO DAILY Diltiazem Cd Cap [Cardizem CD] 180 mg PO BID #60 capsule Metoprolol Tartrate Tab [Lopressor Tab] 100 mg PO BID #60 tablet Atorvastatin [Lipitor] 10 mg PO DAILY Timolol 0.5% Oph Soln [Timoptic 0.5%] 1 drop BOTH EYES BEDTIME ACETAMIN/diphenhydrAMIN 500-25 [Tylenol PM] 2 tablet PO BEDTIME - Follow Up or Referral - Forms/Instructions
--- NOTE | 2016-10-31 12:32 | Anesthesia Post-Op ---
Anesthesia Post OP - Post Ansesthetic Evaluation Patient seen in post op: Yes Resp: within normal limits CV: within normal limits Mental: within normal limits Temp: within normal limits [id number]: within normal limits Nausea and Vomiting: within normal limits Pain: within normal limits
[2016-10-31] MEDS ORDERED: ALBUTEROL/IPRATROPIUM 3 ML NEB RESP TX PRN (13:12)
--- NOTE | 2016-10-31 14:54 | Hospitalist Progress Note ---
Assessment and Plan (1) Pneumonia Status: Acute Assessment and plan: CXR this a.m. showed worsened airspace disease and right pleural effusion. Patient denies SOB or pain on inspiration. On Levaquin and Vancomycin. Consider IR consult for thoracentesis. Current Visit: Yes (2) Chronic atrial fibrillation Status: Chronic Assessment and plan: On Pradaxa. Current Visit: Yes (3) Lower GI bleed Status: Acute Assessment and plan: Repeat colonoscopy today revealed diverticulosis coli. Maintain adequate IV fluids and fiber intake. Current Visit: Yes (4) Bacteremia Status: Acute Assessment and plan: Gram-positive cocci in pairs and chains. On Levaquin and Vancomycin. Current Visit: Yes Hospitalist: Subjective Interval history: The patient was seen and examined today. He had just returned from his repeat colonoscopy and was a bit drowsy. He reports he didn't get much sleep last night due to prep for the c-scope. Colonoscopy revealed diverticulosis coli which is the likely source of his GI bleed. Per recommendations of GI, we will continue to maintain adequate fluid intake and dietary fiber. Discussed the case with and daughter who were at bedside. Repeat CXR revealed worsened airspace disease of the right lung and right-sided pleural effusion since CXR on 10/28/16. Will likely continue antibiotic coverage and consider thoracentesis if indicated. Otherwise, the patient has no other complaints overnight. Will discuss case with Dr. Diaz who will follow with an addendum. Exam - Constitutional Vitals: Period Temp Pulse Resp BP Sys/Villanueva Pulse Ox Last 24 Hr 97 F-98.3 F 62-93 17-22 80-150/31-82 93-97 General appearance: no acute distress, over weight - Head Head exam: Present: normocephalic, atraumatic - Eye Eye exam: Present: EOMI. Absent: conjunctival injection - ENT ENT exam: Present: normal exam, normal external ear exam - Neck Neck exam: Present: normal inspection. Absent: lymphadenopathy, thyromegaly - Respiratory Respiratory exam: Present: clear to auscultation bilaterally - Cardiovascular Cardiovascular exam: Present: regular rate and rhythm. Absent: bradycardia, carotid bruit - GI/Abdominal GI/Abdominal exam: Absent: ascites, distended, mass - Extremities Exam Extremities exam: Present: normal inspection, normal capillary refill. Absent: edema - Back Exam Back exam: Present: normal inspection. Absent: CVA tenderness (L), CVA tenderness (R) - Psychiatric Psychiatric exam: Present: flat affect. Absent: anxious, depressed - Skin Skin exam: Present: normal color, warm, dry Results - Labs CBC & BMP: 10/31/16 04:39 10/31/16 04:39 Lab Results: I have reviewed the past 24 hour labs - Diagnostic Findings Procedure: Chest x-ray: image reviewed by me, report reviewed by me (R pleural effusion) Quality Measures - VTE Contraindication to Pharmacological VTE Prophylaxis: Active Bleeding
--- NOTE | 2016-10-31 15:18 | Pulmonology Consult Note ---
Assessment and Plan (1) Pleural effusion Status: Acute Assessment and plan: The patient has developed a right pleural effusion and this is likely a transudate after receiving blood and fluids in a patient with chronic heart disease. He is quite comfortable at present. We will stop his IV fluids and try to diurese a little. If this does not resolve he may need a thoracentesis. Current Visit: Yes (2) Atrial fibrillation with RVR Status: Chronic Assessment and plan: He has a pacemaker in his heart rate is better. Current Visit: No (3) Dementia Status: Chronic Assessment and plan: The patient appears pleasantly confused Current Visit: No (4) CAD (coronary artery disease) Status: Chronic Assessment and plan: Patient has known coronary artery disease and likely some cardiac dysfunction. Current Visit: No (5) Lower GI bleed Status: Acute Assessment and plan: The patient's bleeding has been controlled so far now. Current Visit: Yes (6) Cardiac pacemaker in situ Status: Acute Assessment and plan: Patient recently had a pacemaker placed. Current Visit: No (7) Positive blood culture Status: Acute Assessment and plan: The patient has a strep species growing in his blood. He is getting antibiotics. Current Visit: Yes (8) Chronic anticoagulation Status: Acute Assessment and plan: The anticoagulation is being held at the present time Current Visit: Yes History of Present Illness Chief complaint: Pleural effusion History of present illness: Mr. Hamilton is a 86 year old white male that has a history of having coronary artery disease, hypertension, hypothyroidism, sick sinus syndrome, pernicious anemia, and mild dementia and has a pacemaker. He came in several days ago with GI bleeding. He has chronically been on anticoagulation. He recently had the pacemaker placed. He has been getting some GI procedure and has gotten volume replacement and transfusions. He says he is feeling better today. He denies pleurisy or shortness of breath. He is not having any chest pain. Over several days he has developed a right pleural effusion. He is not having any difficulties at present. He does have positive blood cultures and is getting antibiotics. Home Medications Medication Instructions Recorded Confirmed Type ACETAMIN/diphenhydrAMIN 500-25 2 tablet PO BEDTIME 10/20/16 10/27/16 History [Tylenol PM] Aspirin [Ecotrin] 81 mg PO DAILY 10/20/16 10/27/16 History Atorvastatin [Lipitor] 10 mg PO DAILY 10/20/16 10/27/16 History Cyanocobalamin Inj [Vitamin B12 1,000 mcg IM Q30D 10/20/16 10/27/16 History Inj] Dabigatran [Pradaxa] 150 mg PO BID 10/20/16 10/27/16 History Levothyroxine Tab [Synthroid Tab] 75 mcg PO DAILY 10/20/16 10/27/16 History Memantine [Namenda] 10 mg PO BID 10/20/16 10/27/16 History George-3S/Dha/Epa/Fish Oil [Fish 1 each PO DAILY 10/20/16 10/27/16 History Oil 1,200 mg Softgel] Rivastigmine Tartrate 1.5 mg PO BID 10/20/16 10/27/16 History [Rivastigmine] Tamsulosin HCl 0.4 mg PO DAILY 10/20/16 10/27/16 History Timolol 0.5% Oph Soln [Timoptic 1 drop BOTH EYES BEDTIME 10/20/16 10/30/16 History 0.5%] Diltiazem Cd Cap [Cardizem CD] 180 mg PO BID #60 capsule 10/23/16 10/27/16 Rx Metoprolol Tartrate Tab [Lopressor 100 mg PO BID #60 tablet 10/23/16 10/27/16 Rx Tab] Allergies Allergy/AdvReac Type Severity Reaction Status Date / Time No Known Allergies Allergy Unverified 10/20/16 14:59 - Constitutional Constitutional: Present: weight gain. Absent: chills, fever(s) - EENT Eyes: Absent: loss of vision Ears: Present: decreased hearing Nose, mouth and throat: Absent: dysphagia, headache(s), sinus pressure - Cardiovascular Cardiovascular: Absent: chest pain at rest, chest pain with activity, dyspnea, edema, orthopnea - Respiratory Respiratory: Present: cough. Absent: dyspnea, hemoptysis, wheezing, pain on inspiration - Gastrointestinal Gastrointestinal: Present: hematochezia. Absent: abdominal pain, melena - Genitourinary Genitourinary: Absent: difficulty urinating Exam (Pulmonay) H&P - Constitutional Vitals: Period Temp Pulse Resp BP Sys/Villanueva Pulse Ox Last 24 Hr 97 F-98.3 F 62-93 17-22 80-150/31-82 93-97 General appearance: normal weight, no acute distress - Head Head exam: Present: normal inspection, normocephalic - Eye Eye exam: Present: EOMI. Absent: scleral icterus Pupils: Present: ALY - ENT ENT exam: Present: normal exam - Neck Neck exam: Present: normal inspection. Absent: lymphadenopathy, thyromegaly - Respiratory Respiratory exam: Present: decreased breath sounds (He does have decreased breath sounds in the right base). Absent: rales, wheezes - Cardiovascular Cardiovascular exam: Present: irregular rhythm. Absent: gallop, systolic murmur - GI/Abdominal GI/Abdominal exam: Present: normal bowel sounds, soft. Absent: organomegaly, tenderness - Extremities Exam Extremities exam: Absent: calf tenderness, edema - Neurological Exam Neurological exam: Present: altered (The patient is somewhat confused) - Psychiatric Psychiatric exam: Present: normal affect, normal mood - Skin Skin exam: Present: warm, dry Medical,Surgical,& Family Hx - Medical History Cardio: History of: Cardiac Dysrhythmia (a-fib), Hypertension, [place], Pacemaker () Neurology: History of: Dementia No history of: Seizures - Surgical History Cardiac Surgeries: Sugical HX of: Cardiac Catheterization (stents) Abdominal Surgeries: Surgical HX of: Abdominal Surgery (AAA repair) - Social History Smoking Status: Never smoker Frequency of Alcohol Use: None Type of Drug Use: None Results - Labs CBC & BMP: 10/31/16 04:39 10/31/16 04:39 - Diagnostic Findings Procedure: Chest x-ray: image reviewed by me, report reviewed by me (Chest x- ray does show increased right pleural effusion) Quality Measures - VTE Contraindication to Pharmacological VTE Prophylaxis: Active Bleeding
[2016-10-31] MEDS ORDERED: FUROSEMIDE 40 MG/4 ML VIAL IV ONE (15:25)
[2016-10-31] MEDS: LEVOFLOXACIN INJ 750 MG in PREMIX 1 EACH IV SCH (17:08)
--- NOTE | 2016-10-31 17:17 | Cardiology Progress Note ---
Gamal Sharma Vanessa RN, am scribing for, and in the presence of, Keyla Quintero NP 17:11. <Keyla Quintero - Last Filed: 10/31/16 17:16> Assessment and Plan - Time spent with patient Time spent with patient: Greater than 30 minutes (1) Chronic atrial fibrillation Status: Chronic Assessment and plan: Patient with history of chronic atrial fib. His ventricular response is currently well controlled with Cardizem and Lopressor. Continue to hold anticoagulation due to lower GI bleeding. We will continue anticoagulation when ok to resume from a GI standpoint. H/H remains stable. We will monitor CBC daily. Current Visit: Yes (2) Lower GI bleed Status: Acute Assessment and plan: H/H remains stable at 9.4 and 28.4. Defer management to gastroenterology. Current Visit: Yes (3) Cardiac pacemaker in situ Status: Acute Assessment and plan: Single chamber pacemaker implanted on 10/22/[address] Ibrahim after patient presented with sick sinus syndrome and symptomatic tachybradycardic syndrome. Symptoms have since resolved. Device interrogated yesterday afternoon per [employer] veterans contact representative and found to functioning perfectly. Current Visit: No (4) CAD (coronary artery disease) Status: Chronic Assessment and plan: This has been clinically stable since admission without change. No chest discomfort, dyspnea, or other anginal complaint. Current Visit: No (5) History of placement of stent in LAD coronary artery Status: Chronic Assessment and plan: Clinically, this is stable. Current Visit: Yes (6) History of right coronary artery stent placement Status: Chronic Assessment and plan: Appears to be stable. Current Visit: Yes (7) Essential hypertension Status: Chronic Assessment and plan: BP is adequately controlled. No need to adjust medication regimen. Current Visit: No (8) Hyperlipidemia Status: Chronic Assessment and plan: Continue statin. Current Visit: No (9) Dementia Status: Chronic Assessment and plan: Continue Namenda. Current Visit: No (10) Hypothyroid Status: Chronic Assessment and plan: Continue Synthroid. Current Visit: No (11) History of AAA (abdominal aortic aneurysm) repair Status: Chronic Current Visit: Yes Cardiology - PN: Subj Interval history: Assessment and Plan - Time spent with patient Time spent with patient: Greater than 30 minutes (1) Chronic atrial fibrillation Status: Chronic Assessment and plan: Patient with history of chronic atrial fib. His ventricular response is currently well controlled with Cardizem and Lopressor. We will start aspirin and continue to hold his formal anticoagulation as he has had anemia while taking. Current Visit: Yes (2) Lower GI bleed Status: Acute Assessment and plan: H/H remains stable at 9.4 and 28.4. Defer management to gastroenterology. Current Visit: Yes (3) Cardiac pacemaker in situ Status: Acute Assessment and plan: Single chamber pacemaker implanted on 10/22/[address] Ibrahim after patient presented with sick sinus syndrome and symptomatic tachybradycardic syndrome. Symptoms have since resolved. Device interrogated yesterday afternoon per [employer] veterans contact representative and found to functioning perfectly. Current Visit: No (4) CAD (coronary artery disease) Status: Chronic Assessment and plan: This has been clinically stable since admission without change. No chest discomfort, dyspnea, or other anginal complaint. Current Visit: No (5) History of placement of stent in LAD coronary artery Status: Chronic Assessment and plan: Clinically, this is stable. Current Visit: Yes (6) History of right coronary artery stent placement Status: Chronic Assessment and plan: Appears to be stable. Current Visit: Yes (7) Essential hypertension Status: Chronic Assessment and plan: BP is adequately controlled. No need to adjust medication regimen. Current Visit: No (8) Hyperlipidemia Status: Chronic Assessment and plan: Continue statin. Current Visit: No (9) Dementia Status: Chronic Assessment and plan: Continue Namenda. Current Visit: No (10) Hypothyroid Status: Chronic Assessment and plan: Continue Synthroid. Current Visit: No (11) History of AAA (abdominal aortic aneurysm) repair Status: Chronic Current Visit: Yes Cardiology - PN: Subj Interval history: PRIMARY NATURAL SCIENCE MANAGER: DR. CHRISTOPHER JOHNSON PCP: DR. JENNA REED Mr. Hamilton is an 86 year old male with PMHx chronic atrial fibrillation, hypertension, dementia, pernicious anemia, coronary artery disease, inferior UT with percutaneous coronary intervention, hypothyroidism, and anemia. Patient was recently hospitalized with symptomatic tachybradycardia syndrome and sick sinus syndrome. He had a single-chamber pacemaker placed October 22, [address] Ibrahim. Patient was then discharged home October 23, 2016 in stable condition. He is instructed to resume his Pradaxa 2 days post discharge due to his chronic atrial fibrillation. He returned on October 31, 2016 with complaints of rectal bleeding. Pradaxa on hold. Upon arrival to the ER his H&H was noted to be 28.[address] abdomen and pelvis revealed no evidence of retroperitoneal hemorrhage. Diverticulosis without jeri diverticulitis. GI has been consulted. EGD revealed GERD but no clear source for acute bleeding. He underwent colonoscopy yesterday, but scope was unable to be completed due to inadequate prep. He underwent repeat colonoscopy this morning. No obvious source of bleeding was noted however poor prep again noted. At this point, will start a low-dose aspirin daily monitoring his CBC. We will not start formal anticoagulation or nontraditional anticoagulation due to his recent bleeding. At this point, cardiology will sign off. Please consult if needed. Exam (Progress Note) - Constitutional Vitals: Period Temp Pulse Resp BP Sys/Villanueva Pulse Ox Last 24 Hr 97.2 F-98.3 F 60-95 16-18 99-150/31-82 91-97 Exam: General appearance: Elderly, normal weight, no acute distress. Head exam: normal inspection, atraumatic. no contusion, hematoma Eye exam: Pupils are equal and reactive. EOMI. no laceration to eyelids, periorbital swelling Neck exam: normal inspection. midline trachea. no bruit, tenderness, or mass. Respiratory exam: clear to auscultation bilaterally. No rhonchi, stridor, wheeze. Cardiovascular exam: Irregular rhythm with 1/6 systolic murmur. No precordial lift. No bruits over the major arteries. Chest wall/torso: Anatomically normal. Pacemaker site left chest wall with dry /intact incision and appears to be healing well. Peripheral Pulses: 2+ throughout. GI/Abdominal exam: normal bowel sounds, soft and nontender, no abdominal bruits or pulsatile masses. Musculoskeletal/Extremities exam: normal inspection without edema, calf tenderness. He does not have full ROM. Neurological exam: Awake and alert. No resting tremor. Psychiatric exam: Quiet, does not conversate much. History of dementia. Skin exam: normal color, warm, dry. No rashes or other skin lesions Result/EKG - Labs CBC & BMP: 10/31/16 04:39 10/31/16 04:39 Lab Results: I have reviewed the past 24 hour labs Labs: Laboratory Results - last 24 hr 10/31/16 10/31/16 04:39 04:39 WBC 7.2 RBC 2.77 L Hgb 9.4 L Hct 28.4 L MCV 102.5 H MCH 34 MCHC 33.1 RDW 14.0 Plt Count 203 MPV 9.5 L Neut % (Auto) 51.7 Lymph % (Auto) 33.9 [place] % (Auto) 7.4 Eos % (Auto) 6.3 Baso % (Auto) 0.4 Neut # (Auto) 3.7 Lymph # (Auto) 2.4 [place] # (Auto) 0.5 Eos # (Auto) 0.5 Baso # (Auto) 0.0 Immature Gran % 0.3 Nucleated RBC % 0.0 Immature Gran # 0.02 Nucleated RBCs # 0.00 Sodium 141 Potassium 3.4 L Chloride 109 H Carbon Dioxide 22 Anion Gap 13.4 BUN 5 L Creatinine 0.80 GFR Calculation 95 BUN/Creatinine Ratio 6.00 Glucose 106 Calculated Osmolality 277.3 Calcium 8.2 L Magnesium 2.0 - EKG EKG results: interpreted by me, no acute changes EKG shows: atrial fibrillation Quality Measures - VTE Contraindication to Pharmacological VTE Prophylaxis: Active Bleeding Exam (Progress Note) - Constitutional Vitals: Period Temp Pulse Resp BP Sys/Villanueva Pulse Ox Last 24 Hr 97.2 F-98.3 F 60-95 16-18 99-150/31-82 91-97 Exam: General appearance: Elderly, normal weight, no acute distress. Head exam: normal inspection, atraumatic. no contusion, hematoma Eye exam: Pupils are equal and reactive. EOMI. no laceration to eyelids, periorbital swelling Neck exam: normal inspection. midline trachea. no bruit, tenderness, or mass. Respiratory exam: clear to auscultation bilaterally. No rhonchi, stridor, wheeze. Cardiovascular exam: Irregular rhythm with 1/6 systolic murmur. No precordial lift. No bruits over the major arteries. Chest wall/torso: Anatomically normal. Pacemaker site left chest wall with dry /intact incision and appears to be healing well. Peripheral Pulses: 2+ throughout. GI/Abdominal exam: normal bowel sounds, soft and nontender, no abdominal bruits or pulsatile masses. Musculoskeletal/Extremities exam: normal inspection without edema, calf tenderness. He does not have full ROM. Neurological exam: Awake and alert. No resting tremor. Psychiatric exam: Quiet, does not conversate much. History of dementia. Skin exam: normal color, warm, dry. No rashes or other skin lesions Result/EKG - Labs CBC & BMP: 10/31/16 04:39 10/31/16 04:39 Lab Results: I have reviewed the past 24 hour labs Labs: Laboratory Results - last 24 hr 10/31/16 10/31/16 04:39 04:39 WBC 7.2 RBC 2.77 L Hgb 9.4 L Hct 28.4 L MCV 102.5 H MCH 34 MCHC 33.1 RDW 14.0 Plt Count 203 MPV 9.5 L Neut % (Auto) 51.7 Lymph % (Auto) 33.9 [place] % (Auto) 7.4 Eos % (Auto) 6.3 Baso % (Auto) 0.4 Neut # (Auto) 3.7 Lymph # (Auto) 2.4 [place] # (Auto) 0.5 Eos # (Auto) 0.5 Baso # (Auto) 0.0 Immature Gran % 0.3 Nucleated RBC % 0.0 Immature Gran # 0.02 Nucleated RBCs # 0.00 Sodium 141 Potassium 3.4 L Chloride 109 H Carbon Dioxide 22 Anion Gap 13.4 BUN 5 L Creatinine 0.80 GFR Calculation 95 BUN/Creatinine Ratio 6.00 Glucose 106 Calculated Osmolality 277.3 Calcium 8.2 L Magnesium 2.0 - EKG EKG results: interpreted by me, no acute changes EKG shows: atrial fibrillation Quality Measures - VTE Contraindication to Pharmacological VTE Prophylaxis: Active Bleeding <Ada Morelos - Last Filed: 10/31/16 18:08> Assessment and Plan (1) Lower GI bleed Status: Acute Current Visit: Yes (2) Cardiac pacemaker in situ Status: Acute Current Visit: No (3) Chronic atrial fibrillation Status: Chronic Current Visit: Yes (4) CAD (coronary artery disease) Status: Chronic Current Visit: No (5) History of placement of stent in LAD coronary artery Status: Chronic Current Visit: Yes (6) History of right coronary artery stent placement Status: Chronic Current Visit: Yes (7) Essential hypertension Status: Chronic Current Visit: No (8) Hyperlipidemia Status: Chronic Current Visit: No (9) Dementia Status: Chronic Current Visit: No (10) Hypothyroid Status: Chronic Current Visit: No (11) History of AAA (abdominal aortic aneurysm) repair Status: Chronic Current Visit: Yes Cardiology - PN: Subj Interval history: I have personally interviewed and evaluated the patient, reviewed the chart and discussed medical decision-making with Practitioner Ingrid. I have read this note and agree with her documentation here in. Exam (Progress Note) - Constitutional Vitals: Period Temp Pulse Resp BP Sys/Villanueva Pulse Ox Last 24 Hr 97 F-98.3 F 63-93 17-22 80-150/31-82 93-97 Result/EKG - Labs CBC & BMP: 10/31/16 04:39 10/31/16 04:39 Labs: Laboratory Results - last 24 hr 10/31/16 10/31/16 04:39 04:39 WBC 7.2 RBC 2.77 L Hgb 9.4 L Hct 28.4 L MCV 102.5 H MCH 34 MCHC 33.1 RDW 14.0 Plt Count 203 MPV 9.5 L Neut % (Auto) 51.7 Lymph % (Auto) 33.9 [place] % (Auto) 7.4 Eos % (Auto) 6.3 Baso % (Auto) 0.4 Neut # (Auto) 3.7 Lymph # (Auto) 2.4 [place] # (Auto) 0.5 Eos # (Auto) 0.5 Baso # (Auto) 0.0 Immature Gran % 0.3 Nucleated RBC % 0.0 Immature Gran # 0.02 Nucleated RBCs # 0.00 Sodium 141 Potassium 3.4 L Chloride 109 H Carbon Dioxide 22 Anion Gap 13.4 BUN 5 L Creatinine 0.80 GFR Calculation 95 BUN/Creatinine Ratio 6.00 Glucose 106 Calculated Osmolality 277.3 Calcium 8.2 L Magnesium 2.0 Ingrid Sharma Bonnie E COACH OPERATOR, personally performed the services described in this documentation, ascribed by Sparkle Yeung RN in my presence, and it is both accurate and complete .
[2016-10-31] MEDS: ALBUTEROL/IPRATROPIUM 3 ML NEB RESP TX SCH (20:19)
[2016-11-01] MEDS: ALBUTEROL/IPRATROPIUM 3 ML NEB RESP TX SCH ×4 (01:29→19:54)
[2016-11-01] MEDS: DEXTROSE 5% NACL 0.45% 1,000 ML IV SCH (06:02)
--- NOTE | 2016-11-01 08:32 | Gastrointestinal Progress Note ---
<SarahJessi Nicolasa - Last Filed: 11/01/16 08:30> Assessment and Plan (1) Lower GI bleed Status: Acute Assessment and plan: 11/01-C scope findings noted. Hemoglobin 9.4. No overt bleeding. Advance to soft diet. Plan an addendum to follow by Dr. Farrar. 10/28-continued reports of bright red rectal bleeding, last in amount and frequency, mixed with stool and without stool. No associated abdominal pain. No history of GI bleeding in past. Last colonoscopy noted 2009. Pradaxa on hold. Hemoglobin holding at 9.2. No transfusion at this time. Continue to monitor bleeding. Plan an addendum to follow by Dr. Farrar. Current Visit: Yes Gastroenterology - PN: Subj Interval history: CC: Hematochezia Patient is seen awake and alert sitting up on bedside commode. Family at bedside. He had a much more restful night. He is having bowel movements at this time with no reports of bleeding noted. C scope results discussed with family. Hemoglobin is holding at 9.4. Abdomen soft, nontender. Will advance patient's diet today. ROS: Denies shortness of breath or chest pain Exam (Progress Note) - Constitutional Vitals: Period Temp Pulse Resp BP Sys/Villanueva Pulse Ox Last 24 Hr 97 F-98.4 F 62-78 16-22 80-143/52-90 93-100 General appearance: normal weight, no acute distress - Head Head exam: Present: normal inspection, normocephalic - Eye Eye exam: Present: other (Lids and conjunctive are unremarkable). Absent: scleral icterus - ENT ENT exam: Present: normal exam, normal oropharynx - Neck Neck exam: Present: normal inspection - Respiratory Respiratory exam: Present: clear to auscultation bilaterally. Absent: rales, rhonchi, wheezes - Cardiovascular Cardiovascular exam: Present: regular rate and rhythm. Absent: diastolic murmur , JVD, systolic murmur - GI/Abdominal GI/Abdominal exam: Present: normal bowel sounds, soft. Absent: ascites, distended, mass, organomegaly, tenderness - Extremities Exam Extremities exam: Present: normal inspection, full ROM - Back Exam Back exam: Present: normal inspection - Neurological Exam Neurological exam: Present: alert, oriented X3 - Psychiatric Psychiatric exam: Present: normal affect, normal mood - Skin Skin exam: Present: normal color, warm, dry Results - Labs CBC & BMP: 10/31/16 04:39 10/31/16 04:39 Lab Results: I have reviewed the past 24 hour labs <Dustin Farrar - Last Filed: 11/01/16 13:05> Exam (Progress Note) - Constitutional Vitals: Period Temp Pulse Resp BP Sys/Villanueva Pulse Ox Last 24 Hr 97 F-99.9 F 62-105 16-20 80-143/52-90 93-100 Results - Labs CBC & BMP: 10/31/16 04:39 10/31/16 04:39
[2016-11-01] MEDS: ATORVASTATIN 10 MG TABLET PO SCH (08:51)
[2016-11-01] MEDS: METOPROLOL TARTRATE 100 MG TABLET PO SCH ×2 (08:51→20:14)
[2016-11-01] MEDS: DILTIAZEM CD 180 MG CAPSULE PO SCH ×2 (08:51→20:14)
[2016-11-01] MEDS: TAMSULOSIN 0.4 MG CAPSULE PO SCH (08:51)
[2016-11-01] MEDS: LEVOTHYROXINE 75 MCG TABLET PO SCH (08:51)
[2016-11-01] MEDS: RIVASTIGMINE 1.5 MG CAPSULE PO SCH ×2 (08:51→20:14)
[2016-11-01] MEDS: MEMANTINE 10 MG TABLET PO SCH ×2 (08:51→20:15)
[2016-11-01] MEDS: PANTOPRAZOLE 40 MG VIAL IV SCH ×2 (08:52→20:19)
[2016-11-01] MEDS: ACETAMINOPHEN 325 MG TABLET PO PRN ×2 (09:50→17:45)
--- NOTE | 2016-11-01 10:08 | Pulmonology Progress Note ---
Pulmonary - PN: Subj Interval history: The patient is an 86-year-old white man that recently got a pacemaker. He has some chronic heart disease along with dementia and hypertension and pernicious anemia. He was placed on anticoagulation because of his arrhythmias but came in with some GI bleeding. He is doing a little better with that but did get some volume and now has a right pleural effusion. He says he had a little more trouble during the night and is a little more short of breath. He said he did diurese fairly well but it is hard to tell by his weights and I&O's. He is not having any increased chest pain or bleeding Exam (Progress Note) - Constitutional Vitals: Period Temp Pulse Resp BP Sys/Villanueva Pulse Ox Last 24 Hr 97 F-98.4 F 62-78 16-22 80-143/52-90 93-100 Exam: General appearance: normal weight, no acute distress, he still looks reasonably comfortable lying in bed. - Head Head exam: Present: normal inspection, normocephalic - Eye Eye exam: Present: EOMI. Absent: scleral icterus Pupils: Present: ALY - ENT ENT exam: Present: normal exam - Neck Neck exam: Present: normal inspection. Absent: lymphadenopathy, thyromegaly - Respiratory Respiratory exam: Present: He still has diminished breath sounds in the right base compared to the left. He does not have a lot of rales or wheezing. - Cardiovascular Cardiovascular exam: Present: irregular rhythm. Absent: gallop, systolic murmur - GI/Abdominal GI/Abdominal exam: Present: normal bowel sounds, soft. Absent: organomegaly, tenderness - Extremities Exam Extremities exam: Absent: calf tenderness, edema - Neurological Exam Neurological exam: Present: altered (The patient is somewhat confused) - Psychiatric Psychiatric exam: Present: normal affect, normal mood - Skin Skin exam: Present: warm, dry Results - Labs CBC & BMP: 10/31/16 04:39 10/31/16 04:39 Assessment and Plan (1) Pleural effusion Status: Acute Assessment and plan: The patient has developed a right pleural effusion and this is likely a transudate after receiving blood and fluids in a patient with chronic heart disease. He feels like he is a little more short of breath today. Will repeat a chest x-ray and probably plan a thoracentesis today. Current Visit: Yes (2) Atrial fibrillation with RVR Status: Chronic Assessment and plan: He has a pacemaker in his heart rate is better. Current Visit: No (3) Dementia Status: Chronic Assessment and plan: The patient appears pleasantly confused Current Visit: No (4) CAD (coronary artery disease) Status: Chronic Assessment and plan: Patient has known coronary artery disease and likely some cardiac dysfunction. He probably does have some mild heart failure. Current Visit: No (5) Lower GI bleed Status: Acute Assessment and plan: The patient's bleeding has been controlled so far now. He has not had any further signs of bleeding. Current Visit: Yes (6) Cardiac pacemaker in situ Status: Acute Assessment and plan: Patient recently had a pacemaker placed. Current Visit: No (7) Positive blood culture Status: Acute Assessment and plan: The patient has a strep species growing in his blood. He is getting antibiotics. Current Visit: Yes (8) Chronic anticoagulation Status: Acute Assessment and plan: The anticoagulation is being held at the present time. Current Visit: Yes
--- NOTE | 2016-11-01 10:12 | Hospitalist Progress Note ---
Assessment and Plan - Time spent with patient Time spent with patient: Less than 30 minutes (1) Pneumonia Status: Acute Assessment and plan: CXR this a.m. showed worsened airspace disease and right pleural effusion. Patient denies SOB or pain on inspiration. On Levaquin and Vancomycin. Consider IR consult for thoracentesis. 11/01/2016. Pulmonology following. White count stable at 7.2. Awaiting pulmonology recommendations regarding possible thoracentesis for pleural effusion. Current Visit: Yes (2) Chronic atrial fibrillation Status: Chronic Assessment and plan: On Pradaxa. Current Visit: Yes (3) Lower GI bleed Status: Acute Assessment and plan: Repeat colonoscopy today revealed diverticulosis coli. Maintain adequate IV fluids and fiber intake. Current Visit: Yes (4) Bacteremia Status: Acute Assessment and plan: Gram-positive cocci in pairs and chains. On Levaquin and Vancomycin. 11/01/2016. White count stable at 7.2. Current Visit: Yes Hospitalist: Subjective Interval history: Patient seen and examined today. He says he's feeling better. PT has been working with him and reports he's tolerated PT well. GI has advanced him to a soft diet starting with lunch today. Hemoglobin 9.4 with no overt bleeding. Pulmonology is following. Patient has been diuresed with lasix. We will likely repeat CXT and await recommendations regarding thoracentesis for the effusion. Patient has no new complaints overnight. Exam - Constitutional Vitals: Period Temp Pulse Resp BP Sys/Villanueva Pulse Ox Last 24 Hr 97 F-98.4 F 62-78 16-22 80-143/52-90 93-100 Exam: General appearance: overweight, no acute distress - Head Head exam: Present: normocephalic, atraumatic - Eye Eye exam: Present: EOMI. Absent: conjunctival injection, nystagmus Pupils: Present: ALY, normal accommodation - ENT ENT exam: Present: normal exam, normal external ear exam - Neck Neck exam: Present: normal inspection. Absent: lymphadenopathy, tenderness, thyromegaly - Respiratory Respiratory exam: Present: clear to auscultation bilaterally. Absent: rales, rhonchi, wheezes - Cardiovascular Cardiovascular exam: Present: regular rate and rhythm. Absent: carotid bruit, gallop, rubs - GI/Abdominal GI/Abdominal exam: Present: normal bowel sounds. Absent: ascites, distended, mass - Extremities Exam Extremities exam: Present: normal inspection, normal capillary refill. Absent: edema - Back Exam Back exam: Absent: CVA tenderness (L), CVA tenderness (R) - Neurological Exam Neurological exam: Present: alert, oriented X3 - Psychiatric Psychiatric exam: Present: normal affect, normal mood - Skin Skin exam: Present: normal color, warm, dry Results - Labs CBC & BMP: 10/31/16 04:39 10/31/16 04:39 Lab Results: I have reviewed the past 24 hour labs Quality Measures - VTE Contraindication to Pharmacological VTE Prophylaxis: Active Bleeding
--- NOTE | 2016-11-01 10:34 | XRay Report ---
XR chest 2V Indication: Preop respiratory evaluation. Comparison: Chest x-ray 10/31/2016 Technique: PA and lateral chest x-ray was performed. Findings: Right-sided pleural effusion has decreased in size since comparison study. Lung parenchyma demonstrates interval partial clearing and persistent opacification of the right lower lobe is suggested. Stranding within the left cardiophrenic angle remains present and is nonspecific. Upper right lung and left lung otherwise are clear. Heart size is borderline, stable. Cardiac pacemaker is stable in position. Bones and soft tissues demonstrate no significant change. Impression: 1. Right-sided pleural effusion is suggested and may have slightly decreased in size. Additionally, the right lung demonstrates interval partial clearing. Little change in the chest is otherwise demonstrated. 11/01/2016 10:31 AM PROCEDURE INTERPRETED AT [facility], [place] DEPARTMENT OF RADIOLOGY Final Report Signed by: Dr. Johnnie Juarez
--- NOTE | 2016-11-01 12:02 | Operative Note ---
Date of procedure: 11/01/16 Pre-op diagnosis: Right pleural effusion Post-op diagnosis: other (Transudative effusion) Procedure: The patient is an 86-year-old with chronic heart disease and has developed a right pleural effusion. A thoracentesis will be done for shortness of breath. Procedure: The right chest was prepped in the usual manner. 1% lidocaine was used for anesthesia. A needle was inserted into the right posterior chest and fluid was removed. Then a catheter was inserted into the right posterior chest. Then 825cc of fluid was removed. The fluid is clear and looks like a transudate. The fluid was sent for studies. Patient tolerated procedure well. Impression: Large right pleural effusion which is probably a transudate. Plan we will continue mild diuresis as needed. Anesthesia: local Surgeon / Physician: Alden Costello Estimated blood loss: none Specimens: other (Pleural fluid was sent for studies.) Condition: stable Disposition: floor Results - Labs CBC & BMP: 10/31/16 04:39 10/31/16 04:39 Discharge Plan - Discharge Medications No Action Aspirin [Ecotrin] 81 mg PO DAILY Cyanocobalamin Inj [Vitamin B12 Inj] 1,000 mcg IM Q30D Dabigatran [Pradaxa] 150 mg PO BID Levothyroxine Tab [Synthroid Tab] 75 mcg PO DAILY Memantine [Namenda] 10 mg PO BID [place]-3S/Dha/Epa/Fish Oil [Fish Oil 1,200 mg Softgel] 1 each PO DAILY Rivastigmine Tartrate [Rivastigmine] 1.5 mg PO BID Tamsulosin HCl 0.4 mg PO DAILY Diltiazem Cd Cap [Cardizem CD] 180 mg PO BID #60 capsule Metoprolol Tartrate Tab [Lopressor Tab] 100 mg PO BID #60 tablet Atorvastatin [Lipitor] 10 mg PO DAILY Timolol 0.5% Oph Soln [Timoptic 0.5%] 1 drop BOTH EYES BEDTIME ACETAMIN/diphenhydrAMIN 500-25 [Tylenol PM] 2 tablet PO BEDTIME - Follow Up or Referral - Forms/Instructions
--- NOTE | 2016-11-01 13:28 | XRay Report ---
XR chest 1V Indication: Status post thoracentesis. Comparison: Chest x-ray 11/01/2016. Technique: Portable AP chest was performed. Findings: There is no evidence of pneumothorax or other complication from recent thoracentesis. The amount of fluid within the right chest appears to have decreased. Impression: 1. Stable chest status post thoracentesis. 11/01/2016 1:25 PM PROCEDURE INTERPRETED AT [facility] DEPARTMENT OF RADIOLOGY Final Report Signed by: Dr. Johnnie Juarez
[2016-11-01 13:47] LABS: RBC,Pleural Fluid 2285 T/CUMM
[2016-11-01 14:27] LABS: Lymphocytes,Pleural Fluid 79 %; Monocytes,Pleural Fluid 2 %; Neutrophils,Pleural Fluid 19 %
[2016-11-01] MEDS: LEVOFLOXACIN INJ 750 MG in PREMIX 1 EACH IV SCH (17:41)
[2016-11-01] MEDS ORDERED: VANCOMYCIN INJ 1,250 MG in SODIUM CHLORIDE 0.9% 250 ML IV SCH (18:00)
[2016-11-01] MEDS: TIMOLOL 0.5% OPH SOLN 5 ML BOTTLE BOTH EYES SCH (20:18)
[2016-11-01] MEDS: VANCOMYCIN INJ 1,250 MG in SODIUM CHLORIDE 0.9% 250 ML IV SCH (20:47)
[2016-11-02] MEDS: ACETAMINOPHEN 325 MG TABLET PO PRN ×2 (00:22→21:54)
[2016-11-02] MEDS: ALBUTEROL/IPRATROPIUM 3 ML NEB RESP TX SCH ×5 (01:52→23:51)
[2016-11-02] MEDS: DILTIAZEM CD 180 MG CAPSULE PO SCH ×2 (08:41→20:35)
[2016-11-02] MEDS: TAMSULOSIN 0.4 MG CAPSULE PO SCH (08:41)
[2016-11-02] MEDS: MEMANTINE 10 MG TABLET PO SCH ×2 (08:42→20:34)
[2016-11-02] MEDS: PANTOPRAZOLE 40 MG VIAL IV SCH (08:42)
[2016-11-02] MEDS: METOPROLOL TARTRATE 100 MG TABLET PO SCH ×2 (08:42→20:34)
[2016-11-02] MEDS: LEVOTHYROXINE 75 MCG TABLET PO SCH (08:42)
[2016-11-02] MEDS: ATORVASTATIN 10 MG TABLET PO SCH (08:42)
[2016-11-02] MEDS: RIVASTIGMINE 1.5 MG CAPSULE PO SCH ×2 (08:42→20:35)
--- NOTE | 2016-11-02 12:21 | Pulmonology Progress Note ---
Pulmonary - PN: Subj Interval history: This 86-year-old man is a patient being followed by Dr. Costello. He had a right thoracentesis yesterday with report showing a transudate and not a particularly large number of cells. This would be consistent with congestive heart failure. He has been diuresed and IV fluids have been stopped and he is a little better. He has had 2 of 2 blood cultures positive for Streptococcus angina. Currently is on antibiotics for that. He had a recent pacemaker placement so he may need to be on the IV antibiotics for 6 weeks. Would like infectious disease to check in on that. Dr. Petti should be back at work on Friday. Exam (Progress Note) - Constitutional Vitals: Period Temp Pulse Resp BP Sys/Villanueva Pulse Ox Last 24 Hr 97.5 F-98.3 F 60-110 16-20 101-150/49-78 94-99 Exam: He is alert and oriented vital signs normal. Pupils react to light. Throat clear neck supple bruits. Chest shows decreased breath sounds at the right base otherwise clear. Heart normal rate and rhythm no murmurs abdomen soft nontender no masses. Extremities no clubbing cyanosis or edema. Calves nontender. Results - Labs CBC & BMP: 10/31/16 04:39 10/31/16 04:39 Lab Results: I have reviewed the past 24 hour labs - Diagnostic Findings Procedure: Chest x-ray: image reviewed by me (Right lung fully expanded. He has a couple of bands of atelectasis in the right lung. The previously noted right pleural effusion is essentially gone.) Assessment and Plan (1) Pleural effusion Status: Acute Assessment and plan: Changes a right pleural effusion that was evacuated. Cytology and cultures are still pending but likely this is due to congestive heart failure or fluid overload. Chronic liver disease or nephrotic syndrome could do this as well. Current Visit: Yes (2) Cardiac pacemaker in situ Status: Acute Assessment and plan: Concerned about possible infection with the new pacemaker in place and positive blood cultures. Would consider 6 weeks of IV antibiotics. Infectious disease should review when she returns to work Friday.. Current Visit: No (3) Bacteremia Status: Acute Assessment and plan: 2 of 2 positive blood cultures for Streptococcus angiolysis. Likely this represents a true bloodstream infection. Levaquin covers. Current Visit: Yes
--- NOTE | 2016-11-02 14:12 | Hospitalist Progress Note ---
Assessment and Plan (1) Chronic anticoagulation Status: Acute Assessment and plan: On Pradaxa-currently being held after acute gastrointestinal bleeding. Current Visit: Yes (2) Bacteremia Status: Acute Assessment and plan: Streptococcal species sensitive to Levaquin. Follow-up infectious disease consult on Friday for duration of treatment and most suitable antibiotic. May need 6 weeks of IV versus p.o. antibiotics due to recent pacemaker placement with bacteremia. Current Visit: Yes (3) Chronic atrial fibrillation Status: Chronic Assessment and plan: Resume aspirin and consider resuming Pradaxa per cardiology. Current Visit: Yes (4) Lower GI bleed Status: Resolved Assessment and plan: this has resolved. No source was found. Current Visit: Yes (5) Pneumonia Status: Acute Assessment and plan: Repeat chest x-ray in a.m. Follow-up urine antigens. 11/02/16 Believed to be pleural effusion versus pneumonia. Pleural fluid appears transudative and culture negative. Current Visit: Yes Qualifiers: Laterality: right Lung location: lower lobe of lung Hospitalist: Subjective Interval history: Patient seen and examined. No acute events overnight. Case discussed with nursing staff. Labs reviewed. Case discussed with family at the bedside. Pulmonary and cardiology notes reviewed. Will await consultation with infectious disease on Friday for planning of outpatient antibiotics. Exam - Constitutional Vitals: Period Temp Pulse Resp BP Sys/Villanueva Pulse Ox Last 24 Hr 97.5 F-98.3 F 60-110 16-20 101-150/49-78 94-99 Exam: Constitutional System: No distress. No tremulousness. Head: Normocephalic, atraumatic. Ears, Nose and Throat System: No pain or tenderness. No epistaxis or discharge Eyes System: Pupils equal, round, and reactive. Extraocular muscles intact. Neck: Supple, without adenopathy, No jugular venous distention. No thyromegaly, neck mass, or prior surgery apparent. Respiratory System: Chest clear to auscultation. Diminished at the bases Cardiovascular System: Heart with regular rate and rhythm. No murmur. GI System: Abdomen soft, nontender. Normo active bowel sounds present. Musculoskeletal System: limbs with no pedal edema. Full distal pulses. Neurological System: No discernable sensory deficit. No aphasia Psychiatric System: Conversation is rational Results - Labs CBC & BMP: 10/31/16 04:39 10/31/16 04:39 Lab Results: I have reviewed the past 24 hour labs - Diagnostic Findings Procedure: Chest x-ray: image reviewed by me, report reviewed by me Quality Measures - VTE Contraindication to Pharmacological VTE Prophylaxis: Active Bleeding
[2016-11-02] MEDS: LEVOFLOXACIN INJ 750 MG in PREMIX 1 EACH IV SCH (16:51)
[2016-11-02] MEDS: FAMOTIDINE 20 MG TABLET PO SCH (20:34)
[2016-11-02] MEDS: TIMOLOL 0.5% OPH SOLN 5 ML BOTTLE BOTH EYES SCH (20:34)
--- NOTE | 2016-11-02 21:37 | Cardiology Progress Note ---
Assessment and Plan - Time spent with patient Time spent with patient: Greater than 30 minutes (1) Bacteremia Status: Acute Assessment and plan: The bacteremia is been documented. With a recent pacemaker I worry about seeding the pacemaker I would recommend IV antibiotics for now. Might continue 2 weeks i v and then p.o. antibiotics for another 4 weeks. Alternatively, I ID may recommend 6 weeks of IV antibiotics Would like to try to prevent infection of the pacemaker Understand from Dr. clayton that repeat blood cultures after being on antibiotics showed clearing of the infection of the blood stream Agree with infectious disease consult on Friday Current Visit: Yes (2) Chronic anticoagulation Status: Acute Current Visit: Yes (3) Hematochezia Status: Acute Current Visit: Yes (4) Positive blood culture Status: Acute Current Visit: Yes (5) Chronic atrial fibrillation Status: Chronic Current Visit: Yes (6) History of placement of stent in LAD coronary artery Status: Chronic Current Visit: Yes (7) History of right coronary artery stent placement Status: Chronic Current Visit: Yes (8) Cardiac pacemaker in situ Status: Acute Current Visit: No (9) CAD (coronary artery disease) Status: Chronic Current Visit: No (10) Hyperlipidemia Status: Chronic Current Visit: No (11) Sick sinus syndrome Status: Chronic Current Visit: No (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 Hamilton. He now has a bacteremia with some strep. He had a pacemaker placed a few days ago. Exam (Progress Note) - Constitutional Vitals: Period Temp Pulse Resp BP Sys/Villanueva Pulse Ox Last 24 Hr 97.5 F-98.3 F 60-87 16-20 99-118/49-70 96-99 Exam: HEENT: Pupils equal, reactive to light and accommodation Neck: NoJVD or bruit Lungs clear to auscultation Heart: Regular rhythm rate with normal S1 and S2. Apical S4 Abdomen: No hepatosplenomegaly Spine/extremities: No clubbing, cyanosis, or edema Neuro: Nonfocal Psych: No depression or anxiety The pacemaker site is without significant hematoma, redness, or induration. It does not appear to be infected. Result/EKG - Labs CBC & BMP: 10/31/16 04:39 10/31/16 04:39 Lab Results: I have reviewed the past 24 hour labs Labs: Laboratory Results - last 24 hr 10/31/16 07:26 Ur L.pneumophila Ag Negative Ur Strep pneumoniae Ag Negative - EKG EKG results: interpreted by me Quality Measures - VTE Contraindication to Pharmacological VTE Prophylaxis: Active Bleeding Specialty Discharge - Follow Up or Referrals Follow up with: Charan Mittal MD [Physician] -
[2016-11-03 05:59] LABS: Basophils # 0.1 10*3/uL (0.0-0.2); Basophils % 0.7 % (0.0-0.8); Eosinophils # 0.3 10*3/uL (0.0-0.87); Eosinophils % 4.8 % (0.00-10.9); Hematocrit 30.1 VOL% (42.0-52.0); Hemoglobin 9.8 GM/DL (14.0-18.0); Immature Granulocytes % 0.4 %; Immature Granulocytes Absolute 0.03 #; Lymphocytes # 2.4 10*3/uL (1.4-4.0); Lymphocytes % 34.8 % (21.2-54.2); Mean Corpuscular HGB Conc 32.6 GM/DL (32-36); Mean Corpuscular Hemoglobin 34 PG (27-34); Mean Corpuscular Volume 105.2 FL (87-102); Mean Platelet Volume 8.7 FL (9.6-12.0); Monocytes # 0.7 10*3/uL (0.11-0.8); Monocytes % 9.8 % (1.7-12.7); Neutrophils # 3.4 10*3/uL (1.4-7.4); Neutrophils % 49.5 % (38.7-73.9); Platelet Count 153 T/CUMM (130-400); Red Blood Count 2.86 MC/CUMM (3.8-5.5); Red Cell Distribution Width 14.2 % (9.3-17.3); White Blood Count 6.8 T/CUMM (4-12)
[2016-11-03 06:18] LABS: Calcium 8.5 MG/DL (8.5-10.1)
[2016-11-03 06:19] LABS: Magnesium 2.3 MG/DL (1.8-2.4); Osmolality,Calculated 276.3 MOS/KG (273-304); Potassium 3.6 MMOL/L (3.5-5.1)
[2016-11-03] MEDS: ALBUTEROL/IPRATROPIUM 3 ML NEB RESP TX SCH ×3 (07:16→19:33)
[2016-11-03] MEDS ORDERED: DABIGATRAN 75 MG CAPSULE PO SCH (09:00)
[2016-11-03] MEDS: MEMANTINE 10 MG TABLET PO SCH ×2 (09:17→21:00)
[2016-11-03] MEDS: ACETAMINOPHEN 325 MG TABLET PO PRN ×2 (09:17→21:40)
[2016-11-03] MEDS: RIVASTIGMINE 1.5 MG CAPSULE PO SCH ×2 (09:17→21:00)
[2016-11-03] MEDS: ATORVASTATIN 10 MG TABLET PO SCH (09:17)
[2016-11-03] MEDS: METOPROLOL TARTRATE 100 MG TABLET PO SCH ×2 (09:17→21:00)
[2016-11-03] MEDS: TAMSULOSIN 0.4 MG CAPSULE PO SCH (09:17)
[2016-11-03] MEDS: OMEGA 3 ACID ETHYL ESTERS 1 GM CAPSULE PO SCH (09:18)
[2016-11-03] MEDS: FAMOTIDINE 20 MG TABLET PO SCH ×2 (09:18→21:00)
[2016-11-03] MEDS: DILTIAZEM CD 180 MG CAPSULE PO SCH ×2 (09:18→21:00)
[2016-11-03] MEDS: LEVOTHYROXINE 75 MCG TABLET PO SCH (09:18)
[2016-11-03] MEDS: ENOXAPARIN 80 MG/0.8 ML SYRINGE SUBCUT SCH ×2 (09:21→21:01)
[2016-11-03] MEDS: DABIGATRAN 75 MG CAPSULE PO SCH ×2 (10:59→20:59)
[2016-11-03] MEDS: hydrOXYzine HCL 25 MG TABLET PO PRN ×2 (10:59→21:38)
--- NOTE | 2016-11-03 11:01 | Pulmonology Progress Note ---
Pulmonary - PN: Subj Interval history: This 86-year-old man is a patient being followed by Dr. Costello. He had a right thoracentesis yesterday with report showing a transudate and not a particularly large number of cells. This would be consistent with congestive heart failure. He has been diuresed and IV fluids have been stopped and he is a little better. He has had 2 of 2 blood cultures positive for Streptococcus angina. Currently is on antibiotics for that. He had a recent pacemaker placement so he may need to be on the IV antibiotics for 6 weeks. Would like infectious disease to check in on that. Dr. Petit should be back at work on Friday. 11/03/2016 patient is feeling better. Congestive heart failure is improving. Problem will be how long to treat her for the positive blood cultures. Suspect it will be 6 weeks. Infectious disease should be able to help tomorrow Exam (Progress Note) - Constitutional Vitals: Period Temp Pulse Resp BP Sys/Villanueva Pulse Ox Last 24 Hr 97.6 F-99 F 65-100 16-20 88-109/47-67 92-99 Exam: He is alert and oriented vital signs normal. Pupils react to light. Throat clear neck supple bruits. Chest shows decreased breath sounds at the right base otherwise clear. Heart normal rate and rhythm no murmurs abdomen soft nontender no masses. Extremities no clubbing cyanosis or edema. Calves nontender. Little change from yesterday. Results - Labs CBC & BMP: 11/03/16 05:44 11/03/16 05:44 Lab Results: I have reviewed the past 24 hour labs Assessment and Plan (1) Pleural effusion Status: Acute Assessment and plan: Changes a right pleural effusion that was evacuated. Cytology and cultures are still pending but likely this is due to congestive heart failure or fluid overload. Chronic liver disease or nephrotic syndrome could do this as well. 11/03/2016 cytology pending. Cultures negative Current Visit: Yes (2) Cardiac pacemaker in situ Status: Acute Assessment and plan: Concerned about possible infection with the new pacemaker in place and positive blood cultures. Would consider 6 weeks of IV antibiotics. Infectious disease should review when she returns to work Friday.. 11/03/2016 will need to make a decision about long-term antibiotics or possible replacement. Current Visit: No (3) Bacteremia Status: Acute Assessment and plan: 2 of 2 positive blood cultures for Streptococcus angiolysis. Likely this represents a true bloodstream infection. Levaquin covers. Current Visit: Yes Specialty Discharge - Follow Up or Referrals Follow up with: Charan Mittal MD [Physician] -
[2016-11-03] MEDS: DEXTROSE 5% NACL 0.45% 1,000 ML IV SCH ×2 (11:43→11:44)
--- NOTE | 2016-11-03 12:36 | Cardiology Progress Note ---
Assessment and Plan (1) Bacteremia Status: Acute Assessment and plan: The bacteremia is been documented. With a recent pacemaker I worry about seeding the pacemaker I would recommend IV antibiotics for now. Might continue 2 weeks i v and then p.o. antibiotics for another 4 weeks. Alternatively, I ID may recommend 6 weeks of IV antibiotics Would like to try to prevent infection of the pacemaker Understand from Dr. clayton that repeat blood cultures after being on antibiotics showed clearing of the infection of the blood stream Agree with infectious disease consult on Friday11/03/16: Assessment/plan/recommendation: I conferred care with Dr. Clayton. Infectious disease it is a tomorrow and give their input on duration of therapy and of what route. I agree with Dr. Barclay that they may favor 6 weeks of IV therapy, and after off this for 4 weeks check surveillance blood cultures. I discussed it with the patient and his . We will check a CRP if it is not already been ordered. Current Visit: Yes (2) Chronic anticoagulation Status: Acute Current Visit: Yes (3) Hematochezia Status: Acute Current Visit: Yes (4) Positive blood culture Status: Acute Current Visit: Yes (5) Chronic atrial fibrillation Status: Chronic Current Visit: Yes (6) History of placement of stent in LAD coronary artery Status: Chronic Current Visit: Yes (7) History of right coronary artery stent placement Status: Chronic Current Visit: Yes (8) Cardiac pacemaker in situ Status: Acute Current Visit: No (9) CAD (coronary artery disease) Status: Chronic Current Visit: No (10) Hyperlipidemia Status: Chronic Current Visit: No (11) Sick sinus syndrome Status: Chronic Current Visit: No (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 Slept well last night. Exam (Progress Note) - Constitutional Vitals: Period Temp Pulse Resp BP Sys/Villanueva Pulse Ox Last 24 Hr 97.5 F-99 F 65-100 16-20 88-106/42-60 92-99 Exam: HEENT: Pupils equal, reactive to light and accommodation Neck: NoJVD or bruit Lungs clear to auscultation Heart: Regular rhythm rate with normal S1 and S2. Apical S4 Abdomen: No hepatosplenomegaly Spine/extremities: No clubbing, cyanosis, or edema Neuro: Nonfocal Psych: No depression or anxiety The pacemaker site is without significant hematoma, redness, or induration. It does not appear to be infected. Result/EKG - Labs CBC & BMP: 11/03/16 05:44 11/03/16 05:44 Lab Results: I have reviewed the past 24 hour labs Labs: Laboratory Results - last 24 hr 10/31/16 11/03/16 11/03/16 07:26 05:44 05:44 WBC 6.8 RBC 2.86 L Hgb 9.8 L Hct 30.1 L MCV 105.2 H MCH 34 MCHC 32.6 RDW 14.2 Plt Count 153 D MPV 8.7 L Neut % (Auto) 49.5 Lymph % (Auto) 34.8 [place] % (Auto) 9.8 Eos % (Auto) 4.8 Baso % (Auto) 0.7 Neut # (Auto) 3.4 Lymph # (Auto) 2.4 [place] # (Auto) 0.7 Eos # (Auto) 0.3 Baso # (Auto) 0.1 Immature Gran % 0.4 Nucleated RBC % 0.0 Immature Gran # 0.03 Nucleated RBCs # 0.00 Sodium 141 Potassium 3.6 Chloride 106 Carbon Dioxide 27 Anion Gap 11.6 BUN 5 L Creatinine 1.10 GFR Calculation 70 BUN/Creatinine Ratio 4.00 L Glucose 89 Calculated Osmolality 276.3 Calcium 8.5 Magnesium 2.3 Ur L.pneumophila Ag Negative Ur Strep pneumoniae Ag Negative - EKG EKG results: interpreted by me Quality Measures - VTE Contraindication to Pharmacological VTE Prophylaxis: Active Bleeding Specialty Discharge - Follow Up or Referrals Follow up with: Charan Mittal MD [Physician] -
--- NOTE | 2016-11-03 14:33 | Hospitalist Progress Note ---
Assessment and Plan (1) Chronic anticoagulation Status: Acute Assessment and plan: On Pradaxa-will resume at 75 mg by mouth twice daily due to the patient's age and recent GI bleed. Current Visit: Yes (2) Bacteremia Status: Acute Assessment and plan: Streptococcal species sensitive to Levaquin. Follow-up infectious disease consult on Friday for duration of treatment and most suitable antibiotic. May need 6 weeks of IV versus p.o. antibiotics due to recent pacemaker placement with bacteremia. Current Visit: Yes (3) Chronic atrial fibrillation Status: Chronic Assessment and plan: Resume aspirin and Pradaxa-at a lower dose- per cardiology. Current Visit: Yes (4) Lower GI bleed Status: Resolved Assessment and plan: this has resolved. No source was found. Current Visit: Yes (5) Pneumonia Status: Acute Assessment and plan: Repeat chest x-ray in a.m. Follow-up urine antigens. 11/02/16 Believed to be pleural effusion versus pneumonia. Pleural fluid appears transudative and culture negative. Current Visit: Yes Qualifiers: Laterality: right Lung location: lower lobe of lung Hospitalist: Subjective Interval history: Patient seen and examined. No acute events overnight. Case discussed with nursing staff. Labs reviewed. Case discussed with at the bedside. Awaiting ID consultation for tomorrow regarding treatment of bacteremia in the setting of a new pacemaker implant. I spoken with cardiology and will resume Pradaxa at a lower dose due to the risk of bleeding in this 86-year-old male with a recent GI bleed. Exam - Constitutional Vitals: Period Temp Pulse Resp BP Sys/Villanueva Pulse Ox Last 24 Hr 97.5 F-99 F 65-100 16-20 88-106/42-60 92-99 Exam: Constitutional System: No distress. No tremulousness. Head: Normocephalic, atraumatic. Ears, Nose and Throat System: No pain or tenderness. No epistaxis or discharge Eyes System: Pupils equal, round, and reactive. Extraocular muscles intact. Neck: Supple, without adenopathy, No jugular venous distention. No thyromegaly, neck mass, or prior surgery apparent. Respiratory System: Chest clear to auscultation. Diminished at the bases Cardiovascular System: Heart with regular rate and rhythm. No murmur. Pacemaker noted left chest GI System: Abdomen soft, nontender. Normo active bowel sounds present. Musculoskeletal System: limbs with no pedal edema. Full distal pulses. Neurological System: No discernable sensory deficit. No aphasia Psychiatric System: Conversation is rational Results - Labs CBC & BMP: 11/03/16 05:44 11/03/16 05:44 Lab Results: I have reviewed the past 24 hour labs Quality Measures - VTE Contraindication to Pharmacological VTE Prophylaxis: Active Bleeding Specialty Discharge - Follow Up or Referrals Follow up with: Charan Mittal MD [Physician] -
[2016-11-03] MEDS: LEVOFLOXACIN INJ 750 MG in PREMIX 1 EACH IV SCH (18:02)
[2016-11-03] MEDS: TIMOLOL 0.5% OPH SOLN 5 ML BOTTLE BOTH EYES SCH (21:01)
[2016-11-04] MEDS: ALBUTEROL/IPRATROPIUM 3 ML NEB RESP TX SCH ×4 (00:10→20:43)
[2016-11-04] MEDS: hydrOXYzine HCL 25 MG TABLET PO PRN ×2 (07:15→21:54)
[2016-11-04] MEDS: DABIGATRAN 75 MG CAPSULE PO SCH ×2 (08:06→21:54)
[2016-11-04] MEDS: OMEGA 3 ACID ETHYL ESTERS 1 GM CAPSULE PO SCH (08:07)
[2016-11-04] MEDS: ENOXAPARIN 80 MG/0.8 ML SYRINGE SUBCUT SCH (08:07)
[2016-11-04] MEDS: TAMSULOSIN 0.4 MG CAPSULE PO SCH (08:07)
[2016-11-04] MEDS: MEMANTINE 10 MG TABLET PO SCH ×2 (08:07→21:54)
[2016-11-04] MEDS: DILTIAZEM CD 180 MG CAPSULE PO SCH ×2 (08:07→21:53)
[2016-11-04] MEDS: RIVASTIGMINE 1.5 MG CAPSULE PO SCH ×2 (08:07→21:54)
[2016-11-04] MEDS: METOPROLOL TARTRATE 100 MG TABLET PO SCH ×2 (08:07→21:54)
[2016-11-04] MEDS: ATORVASTATIN 10 MG TABLET PO SCH (08:07)
[2016-11-04] MEDS: FAMOTIDINE 20 MG TABLET PO SCH ×2 (08:07→21:54)
[2016-11-04] MEDS: LEVOTHYROXINE 75 MCG TABLET PO SCH (08:08)
[2016-11-04] MEDS ORDERED: MAGNESIUM HYDROXIDE SUSP 30 ML UDCUP PO PRN (09:16)
[2016-11-04] MEDS ORDERED: BISACODYL 5 MG TABLET PO ONE (09:26)
--- NOTE | 2016-11-04 09:30 | Cardiology Progress Note ---
Assessment and Plan - Time spent with patient Time spent with patient: Greater than 30 minutes (1) Sick sinus syndrome Status: Chronic Current Visit: No (2) Dementia Status: Chronic Current Visit: No Qualifiers: Dementia type: Alzheimer's disease (3) History of AAA (abdominal aortic aneurysm) repair Status: Chronic Current Visit: Yes (4) CAD (coronary artery disease) Status: Chronic Current Visit: No Qualifiers: Coronary Disease-Associated Artery/Lesion type: [place] artery [place] vs. transplanted heart: [place] heart Associated angina: without angina Qualified Code(s): I25.10 - Atherosclerotic heart disease of [place] coronary artery without angina pectoris (5) History of right coronary artery stent placement Status: Chronic Current Visit: Yes (6) History of placement of stent in LAD coronary artery Status: Chronic Current Visit: Yes (7) Chronic atrial fibrillation Status: Chronic Current Visit: Yes (8) Cardiac pacemaker in situ Status: Chronic Assessment and plan: October 2016 Current Visit: No (9) Bacteremia Status: Acute Assessment and plan: Initial blood cultures are positive on 28 October second set of 2 blood cultures from the were negative at 24 hours Current Visit: Yes Cardiology - PN: Subj Interval history: Mr. Hamilton's an 86-year-old gentleman admitted to the hospitalist service with bacteremia. He had a single-chamber pacemaker placed approximately 6 weeks ago. There is concern of potential for infection based on bacteremia that was found on blood cultures 2 on the . Repeat blood cultures from 01 November are negative at this point. According to the electronic health record last time they were verified her checked was on the . I anticipate them to be reevaluated today. The patient and his are primarily concerned about his diffuse pruritus with no rash as well as being extremely concerned about him becoming impacted. He has not had a bowel movement for 4 days. He has previously been on MiraLAX but this has not been necessary since he has been taking high protein boost at home. I will resume his MiraLAX. We await pending blood cultures. His white count is normal and he is afebrile. His pacer site looks good. He is nontender to palpation is not erythematous and the incision appears to be closed. Ongoing concern for possibility of exogenous hardware infection. Exam (Progress Note) - Constitutional Vitals: Period Temp Pulse Resp BP Sys/[place] Pulse Ox Last 24 Hr 97.2 F-98.5 F 68-87 16-20 91-112/42-61 92-99 General appearance: normal weight - Head Head exam: Present: normal inspection - Eye Eye exam: Present: EOMI Pupils: Present: ALY - Respiratory Respiratory exam: Present: clear to auscultation bilaterally - Cardiovascular Cardiovascular exam: Present: irregular rhythm - GI/Abdominal GI/Abdominal exam: Present: normal bowel sounds - Extremities Exam Extremities exam: Present: normal inspection - Back Exam Back exam: Present: normal inspection - Neurological Exam Neurological exam: Present: alert - Psychiatric Psychiatric exam: Present: depressed - Skin Skin exam: Present: normal color, dry, other (No rash) Result/EKG - Labs CBC & BMP: 11/03/16 05:44 11/03/16 05:44 Labs: Laboratory Results - last 24 hr 11/04/16 05:10 C-Reactive Protein < 0.29 Quality Measures - VTE Contraindication to Pharmacological VTE Prophylaxis: Active Bleeding Specialty Discharge - Follow Up or Referrals Follow up with: Charan Mittal MD [Physician] -
--- NOTE | 2016-11-04 09:44 | Pulmonology Progress Note ---
Pulmonary - PN: Subj Interval history: The patient is an 86-year-old white man that recently got a pacemaker. He has some chronic heart disease along with dementia and hypertension and pernicious anemia. He was placed on anticoagulation because of his arrhythmias but came in with some GI bleeding. He is doing a little better with that but did get some volume and now has a right pleural effusion. He tolerated the thoracentesis last week and his breathing is better. Today he is complaining of a lot of itching. He has been getting Atarax. He is also constipated. He is getting IV antibiotics for his bacteremia. The pleural fluid was benign and so far the culture negative. His repeat blood cultures are pending. Exam (Progress Note) - Constitutional Vitals: Period Temp Pulse Resp BP Sys/Villanueva Pulse Ox Last 24 Hr 97.2 F-98.5 F 68-87 16-20 91-112/42-61 92-99 Exam: General appearance: normal weight, no acute distress, he still looks reasonably comfortable lying in bed. - Head Head exam: Present: normal inspection, normocephalic - Eye Eye exam: Present: EOMI. Absent: scleral icterus Pupils: Present: ALY - ENT ENT exam: Present: normal exam - Neck Neck exam: Present: normal inspection. Absent: lymphadenopathy, thyromegaly - Respiratory Respiratory exam: Present: He has good breath sounds bilaterally without any definite rales. His lungs are basically clear now. - Cardiovascular Cardiovascular exam: Present: irregular rhythm. Absent: gallop, systolic murmur - GI/Abdominal GI/Abdominal exam: Present: normal bowel sounds, soft. Absent: organomegaly, tenderness - Extremities Exam Extremities exam: Absent: calf tenderness, edema - Neurological Exam Neurological exam: Present: altered (The patient is somewhat confused) - Psychiatric Psychiatric exam: Present: normal affect, normal mood - Skin Skin exam: Present: warm, dry. He has not had any definite rash or whelps. Results - Labs CBC & BMP: 11/03/16 05:44 11/03/16 05:44 Assessment and Plan (1) Pleural effusion Status: Acute Assessment and plan: The patient has developed a right pleural effusion and had a thoracentesis last week. The pleural fluid is a transudate. Current Visit: Yes (2) Atrial fibrillation with RVR Status: Chronic Assessment and plan: He has a pacemaker in his heart rate is better. Current Visit: No (3) Dementia Status: Chronic Assessment and plan: The patient appears pleasantly confused. He is upset about the itching now. Current Visit: No Qualifiers: Dementia type: Alzheimer's disease (4) CAD (coronary artery disease) Status: Chronic Assessment and plan: Patient has known coronary artery disease and likely some cardiac dysfunction. He probably does have some mild heart failure. His breathing is better at present. Current Visit: No Qualifiers: Coronary Disease-Associated Artery/Lesion type: [place] artery [place] vs. transplanted heart: [place] heart Associated angina: without angina Qualified Code(s): I25.10 - Atherosclerotic heart disease of [place] coronary artery without angina pectoris (5) Lower GI bleed Status: Resolved Assessment and plan: The patient's bleeding has been controlled so far now. He has not had any further signs of bleeding. His hematocrit is 30 and stable. Current Visit: Yes (6) Cardiac pacemaker in situ Status: Chronic Assessment and plan: Patient recently had a pacemaker placed. Current Visit: No (7) Positive blood culture Status: Acute Assessment and plan: The patient has a strep species growing in his blood. He is getting antibiotics. His repeat blood cultures have been negative. Probably needs to continue his IV antibiotics for several weeks. Current Visit: Yes (8) Chronic anticoagulation Status: Acute Assessment and plan: The anticoagulation is being held at the present time. Current Visit: Yes Specialty Discharge - Follow Up or Referrals Follow up with: Charan Mittal MD [Physician] -
--- NOTE | 2016-11-04 10:39 | Infectious Disease Consult ---
Assessment and Plan (1) Bacteremia Status: Acute Assessment and plan: Streptococcal bacteremia in patient with recent placement of pacemaker. We need to make sure this is not complicated by endocarditis. Recommendations: 1. Echocardiogram 2. Switch from levofloxacin to ceftriaxone 2 g IV daily 3. business services assistant consult for outpatient IV antibiotic therapy. The patient is going to need at least 4 weeks of IV antibiotic therapy in light of the fact that he has had aortic aneurysm repair. He likely has graft material in that vessel and so will require more prolonged IV therapy. If the echocardiogram is positive therapy would have to be extended for 6 weeks. 4. Patient will need a PICC line placed however will wait until the repeat blood cultures are finalized as negative Thank you very much for the consult. Will follow. Discussed in detail with at bedside. Current Visit: Yes (2) Pleural effusion Status: Acute Assessment and plan: No evidence that this was infectious. Current Visit: Yes (3) Chronic atrial fibrillation Status: Chronic Current Visit: Yes (4) History of AAA (abdominal aortic aneurysm) repair Status: Chronic Assessment and plan: Because of the present of graft material in the aorta patient will require 4 weeks at least IV antibiotic therapy in case seeding occurred. Current Visit: Yes (5) Cardiac pacemaker in situ Status: Chronic Assessment and plan: Will and showed no vegetations on pacemaker leads thus echocardiogram ordered. Current Visit: No (6) Dementia Status: Chronic Current Visit: No Qualifiers: Dementia type: Alzheimer's disease History of Present Illness Chief complaint: Streptococcal bacteremia History of present illness: Mr. Hamilton is a 86 year old male Admitted a week ago with SC bleeding. Patient had been on anti-coagulation for atrial fibrillation. Blood cultures done routinely on admission came back positive for Streptococcus anginosus group. He actually had a pacemaker placed about 1 week prior to admission. The patient had no recent fever. His colonoscopy showed diverticular disease. No mention of deep-seated abscess on CT abdomen and pelvis done on admission with IV contrast. He was a bit short of breath but no significant cough or sputum production. No pleurisy. He was found to have a right pleural effusion on admission and thoracentesis done revealed transudative fluid. With the positive blood cultures patient has been on levofloxacin. I am asked to advise further. Home Medications Medication Instructions Recorded Confirmed Type ACETAMIN/diphenhydrAMIN 500-25 2 tablet PO BEDTIME 10/20/16 10/27/16 History [Tylenol PM] Aspirin [Ecotrin] 81 mg PO DAILY 10/20/16 10/27/16 History Atorvastatin [Lipitor] 10 mg PO DAILY 10/20/16 10/27/16 History Cyanocobalamin Inj [Vitamin B12 1,000 mcg IM Q30D 10/20/16 10/27/16 History Inj] Dabigatran [Pradaxa] 150 mg PO BID 10/20/16 10/27/16 History Levothyroxine Tab [Synthroid Tab] 75 mcg PO DAILY 10/20/16 10/27/16 History Memantine [Namenda] 10 mg PO BID 10/20/16 10/27/16 History Irwin-3S/Dha/Epa/Fish Oil [Fish 1 each PO DAILY 10/20/16 10/27/16 History Oil 1,200 mg Softgel] Rivastigmine Tartrate 1.5 mg PO BID 10/20/16 10/27/16 History [Rivastigmine] Tamsulosin HCl 0.4 mg PO DAILY 10/20/16 10/27/16 History Timolol 0.5% Oph Soln [Timoptic 1 drop BOTH EYES BEDTIME 10/20/16 10/30/16 History 0.5%] Diltiazem Cd Cap [Cardizem CD] 180 mg PO BID #60 capsule 10/23/16 10/27/16 Rx Metoprolol Tartrate Tab [Lopressor 100 mg PO BID #60 tablet 10/23/16 10/27/16 Rx Tab] Allergies Allergy/AdvReac Type Severity Reaction Status Date / Time No Known Allergies Allergy Unverified 10/20/16 14:59 ROS unobtainable: due to dementia (But negative apart from what was mentioned in the HPI according to history from (except for generalized itching for the past 3 days]) Medical,Surgical,& Family Hx - Medical History Cardio: History of: Cardiac Dysrhythmia (a-fib), Hypertension, [place], Pacemaker () Neurology: History of: Dementia No history of: Seizures - Surgical History Cardiac Surgeries: Sugical HX of: Cardiac Catheterization (stents) Abdominal Surgeries: Surgical HX of: Abdominal Surgery (AAA repair) - Social History Smoking Status: Never smoker Frequency of Alcohol Use: None Type of Drug Use: None Infectious Disease Exam H&P - Constitutional Vitals: Vital Signs Temp Pulse Resp BP Pulse Ox 98.3 F 74 18 112/50 92 L 11/04/16 08:00 11/04/16 08:00 11/04/16 08:00 11/04/16 08:00 11/04/16 08:00 Intake and Output 11/03/16 11/04/16 11/04/16 23:59 07:59 15:59 Intake Total 570 / 570 Balance 570 / 570 Intake: IV 150 / 150 Levaquin Inj 750 mg In 150 / 150 Premix 1 Each @ 100 mls/ hr IV Q24H QUEENIE Rx#: [id number] Oral 420 / 420 Other: # Voids 2 1 Weight 86.455 kg Patient Weight 11/04/16 23:59 Weight 86.455 kg Exam: General: Patient alert though a bit subdued, confused HEENT: Mucous membranes pink and moist, anicteric acyanotic, PERRLA, no oral exudates Neck: Supple, no thyroid gland enlargement, no lymphadenopathy Respiratory system: Breath sounds vesicular, crepitations or wheezes heard Cardiovascular: Pacemaker site without surrounding erythema or induration, no drainage from scar, normal S1 and S2, systolic murmur noted Abdomen: Normal bowel sounds, soft nontender throughout, no organomegaly or mass Genitourinary: No suprapubic pain or bladder distention Extremities: no edema Skin: No rash Reports - Labs CBC & BMP: 11/03/16 05:44 11/03/16 05:44 Labs: Laboratory Results - last 24 hr 11/04/16 05:10 C-Reactive Protein < 0.29 - Reports Microbiology: Microbiology 11/01/16 13:05 Body Fluid Culture - Final Pleural Fluid No growth at 48 hours Gram Stain - Final No organisms seen Repeat blood cultures from 01 November negative to date - Diagnostic Findings Procedure: Chest x-ray: image reviewed by me, report reviewed by me (Haziness in the right lung base, no obvious consolidation) Specialty Discharge - Follow Up or Referrals Follow up with: Charan Mittal MD [Physician] -
[2016-11-04] MEDS ORDERED: TUBERCULIN SKIN TEST 0.1 ML SYRINGE INTRADERM ONE (11:25)
--- NOTE | 2016-11-04 11:40 | Physician Query Form ---
CLICK EDIT DOCUMENT TO SELECT QUERY ANSWER --> OK --> SIGN Rosa Juarez RN, CCDS Certified Clinical Produce Service Team Member W) [phone] (f) [phone] [email or web address] PROVIDERS: Make your selection(s) from the choices in EACH section by typing an "x" and enter comments in the comment section. Please use your independent medical judgment in providing your response. This request does not imply that any particular answer is desired or expected. CLINICAL INDICATORS: (Providers should not edit this section) The medical record indicates that the patient was admitted with lower GI bleeding, Later CHF is mentioned, and the patient was treated with IV Lasix. Please provide further specificity regarding CHF. ACUITY: ( ) Acute ( ) Chronic ( ) Acute on Chronic ( ) Clinically unable to determine TYPE: ( ) Systolic ( ) Diastolic ( ) Combined Systolic/Diastolic ( ) Other, please specify: ( ) Clinically unable to determine (x ) The patient does NOT have CHF COMMENTS: Use of terms such as suspected, likely, or probable (associated with a specific diagnosis that is being evaluated, monitored, or treated as if it exists) are acceptable and can be restated in the discharge summary if not ruled out. [facility]
[2016-11-04] MEDS: cefTRIAXone 2,000 MG in SODIUM CHLORIDE 0.9% 100 ML IV SCH (11:58)
--- NOTE | 2016-11-04 12:17 | Pathology Report from [facility] ---
ACCESSION # : [id number] PATIENT NAME : Jason Hamilton ORDERING DR : TUSHAR LUZ MD CLINICAL HX: Chronic Heart Disease; Shortness of Breath; Right Pleural Effusion POST-OP DX: Same SPECIMEN INFO: Fluid,Pleural,Right - 650 ml's red-orange, cloudy CLASS: I CLASS COMMENTS: Inflammation, blood, and benign mesothelial cells.CELL BLOCK: Same. CLASS LEGEND: CLASS 0 Material inadequate for diagnosis because of (see comment) CLASS I Absence of atypical or abnormal cells CLASS II Atypical Cytology but no evidence of malignancy CLASS III Cytology suggestive of but not conclusive for malignancy CLASS IV Cytology strongly suggestive of malignancy CLASS V Cytology conclusive for malignancy SERVICE DATE: 11/01/2016 REPORT DATE: 11/04/2016 PATHOLOGIST: Ilene Forbes
--- NOTE | 2016-11-04 12:54 | Hospitalist Progress Note ---
Assessment and Plan (1) Chronic atrial fibrillation Status: Chronic Assessment and plan: Pradaxa restarted Current Visit: Yes (2) Lower GI bleed Status: Resolved Current Visit: Yes (3) Chronic anticoagulation Status: Acute Current Visit: Yes (4) Bacteremia Status: Acute Assessment and plan: Due to streptococcus Infectious Disease assisting. Echo ordered. Restarted on Rocephin. Current Visit: Yes Hospitalist: Subjective Interval history: No acute events overnight. Repeat blood cultures have been negative so far. ID evaluated, echo ordered, switched to Rocephin. Will need outpatient IV antibiotics. PT/OT ordered. Patient might require rehab at discharge. Exam - Constitutional Vitals: Period Temp Pulse Resp BP Sys/Villanueva Pulse Ox Last 24 Hr 97.2 F-98.5 F 68-87 16-20 101-112/50-61 92-99 General appearance: normal weight - Head Head exam: Present: normocephalic, atraumatic - Eye Eye exam: Present: EOMI Pupils: Present: ALY - ENT ENT exam: Present: normal exam - Neck Neck exam: Present: normal inspection - Respiratory Respiratory exam: Present: clear to auscultation bilaterally. Absent: rhonchi, wheezes - Cardiovascular Cardiovascular exam: Present: regular rate and rhythm - GI/Abdominal GI/Abdominal exam: Present: normal bowel sounds, soft. Absent: tenderness, rebound - Extremities Exam Extremities exam: Present: normal inspection - Back Exam Back exam: Present: normal inspection - Neurological Exam Neurological exam: Present: alert, oriented X3 - Psychiatric Psychiatric exam: Present: normal affect, normal mood - Skin Skin exam: Present: warm, intact Results - Labs CBC & BMP: 11/03/16 05:44 11/03/16 05:44 Quality Measures - VTE Contraindication to Pharmacological VTE Prophylaxis: Active Bleeding Specialty Discharge - Follow Up or Referrals Follow up with: Charan Mittal MD [Physician] -
--- NOTE | 2016-11-04 17:48 | ECHO Report ---
Jason Hamilton Exam Date: 11/04/2016 13:54 Referring Physician: Technologist: Rosio Lee Age: 86 Ht (in): 69 Wt (lb): 190 Gender: M Exam Location: [facility] Echo Indications: Hx. AAA, CAD, Chronic Afib, pneumonia, positve blood culture, pleural effusion, bacteremia, chronic anticoag BP: 112 / 50 HR: 74 Rhythm: Sinus Technical Quality: IMPRESSIONS Left ventricular ejection fraction is estimated at 55 %. Moderate concentric left ventricular hypertrophy. Moderate TR and estimated RVSP of 31 mmHg plus the right atrial pressure Pacing wire is noted Senescent calcification of the mitral annulus, mitral leaflets and aortic valve. MEASUREMENTS (Male / Female) Normal Values 2D ECHO LV Diastolic Diameter PLAX 4.5 cm 4.2 - 5.9 / 3.9 - 5.3 cm LV Systolic Diameter PLAX 3.7 cm LV Fractional Shortening PLAX 17.3 % IVS Diastolic Thickness 1.6 cm 0.6 - 1.0 / 0.6 - 0.9 cm LVPW Diastolic Thickness 1.6 cm 0.6 - 1.0 / 0.6 - 0.9 cm RV Internal Dim ED PLAX 3.0 cm Aortic Root Diameter 2.7 cm LA Systolic Diameter LX 4.1 cm 3.0 - 4.0 / 2.7 - 3.8 cm DOPPLER TR Peak Velocity 277.0 cm/s TR Peak Gradient 30.7 mmHg FINDINGS Left Ventricle Normal left ventricular cavity size. Moderate concentric left ventricular hypertrophy. Left ventricular ejection fraction is estimated at 55 %. Right Ventricle Mildly increased right ventricular size. There is a pacing wire seen in the right ventricle Right Atrium The right atrium is mildly enlarged. There is a pacing wire seen traversing the right atrium. Left Atrium Mildly increased left atrial diameter. Mitral Valve Mild calcification of the mitral annulus and mitral leaflets are also moderately calcified. Mild mitral valve regurgitation. There is also calcification of what appears to be the subvalvular apparatus. Aortic Valve Mild aortic valve sclerosis. Mild aortic valve regurgitation. Tricuspid Valve Morphologically normal tricuspid valve. Moderate tricuspid valve regurgitation. Tricuspid regurgitation velocities suggest a RVSP of 31 mmHg + RAP. Pulmonic Valve Morphologically normal pulmonic valve. Moderate pulmonary valve regurgitation. Pericardium No pericardial effusion. Aorta Normal size aortic root and proximal ascending aorta. Agnieszka Guillory (Electronically Signed) Final Date: 04 Nov 2016 17:45
[2016-11-04] MEDS: diphenhydrAMINE CAP 25 MG CAPSULE PO PRN (21:54)
[2016-11-04] MEDS: TIMOLOL 0.5% OPH SOLN 5 ML BOTTLE BOTH EYES SCH (21:59)
[2016-11-05] MEDS: ALBUTEROL/IPRATROPIUM 3 ML NEB RESP TX SCH ×4 (00:22→20:23)
[2016-11-05 06:20] LABS: Basophils % 0.4 % (0.0-0.8); Eosinophils # 0.4 10*3/uL (0.0-0.87); Eosinophils % 5.4 % (0.00-10.9); Hematocrit 29.6 VOL% (42.0-52.0); Hemoglobin 9.8 GM/DL (14.0-18.0); Immature Granulocytes % 0.1 %; Immature Granulocytes Absolute 0.01 #; Lymphocytes # 2.7 10*3/uL (1.4-4.0); Lymphocytes % 37.7 % (21.2-54.2); Mean Corpuscular HGB Conc 33.1 GM/DL (32-36); Mean Corpuscular Hemoglobin 34 PG (27-34); Mean Corpuscular Volume 102.4 FL (87-102); Mean Platelet Volume 9.2 FL (9.6-12.0); Monocytes # 0.6 10*3/uL (0.11-0.8); Monocytes % 8.2 % (1.7-12.7); Neutrophils # 3.5 10*3/uL (1.4-7.4); Neutrophils % 48.2 % (38.7-73.9); Platelet Count 155 T/CUMM (130-400); Red Blood Count 2.89 MC/CUMM (3.8-5.5); Red Cell Distribution Width 14.3 % (9.3-17.3); White Blood Count 7.2 T/CUMM (4-12)
[2016-11-05 06:59] LABS: Calcium 8.1 MG/DL (8.5-10.1); Magnesium 2.2 MG/DL (1.8-2.4); Potassium 3.2 MMOL/L (3.5-5.1)
[2016-11-05] MEDS: METOPROLOL TARTRATE 100 MG TABLET PO SCH ×2 (08:00→21:37)
[2016-11-05] MEDS: DABIGATRAN 75 MG CAPSULE PO SCH ×2 (08:00→21:36)
[2016-11-05] MEDS: MEMANTINE 10 MG TABLET PO SCH ×2 (08:00→21:36)
[2016-11-05] MEDS: DILTIAZEM CD 180 MG CAPSULE PO SCH ×2 (08:00→21:36)
[2016-11-05] MEDS: ATORVASTATIN 10 MG TABLET PO SCH (08:00)
[2016-11-05] MEDS: POLYETHYLENE GLYCOL POWDER 17 GM PACK PO SCH (08:00)
[2016-11-05] MEDS: OMEGA 3 ACID ETHYL ESTERS 1 GM CAPSULE PO SCH (08:00)
[2016-11-05] MEDS: LEVOTHYROXINE 75 MCG TABLET PO SCH (08:01)
[2016-11-05] MEDS: TAMSULOSIN 0.4 MG CAPSULE PO SCH (08:01)
[2016-11-05] MEDS: RIVASTIGMINE 1.5 MG CAPSULE PO SCH ×2 (08:01→21:37)
[2016-11-05] MEDS: FAMOTIDINE 20 MG TABLET PO SCH ×2 (08:01→21:37)
--- NOTE | 2016-11-05 09:15 | Infectious Disease Progress ---
Assessment and Plan (1) Bacteremia Status: Acute Assessment and plan: Streptococcal bacteremia in patient with recent placement of pacemaker. No evidence of endocarditis on TTE. Recommendations: 1. PICC line placement today 2. Continue n to ceftriaxone 2 g IV daily 3. Per director of social work patient will be transferred to swing bed so he can get rehabilitation therapy and his IV antibiotics. No endocarditis but because of the presence of the aortic graft he will be treated with IV antibiotics for 4 weeks, thus the last day of therapy will be 28 November 4. Appointment to see me in 2 weeks Discussed with daughter at bedside. Current Visit: Yes (2) Pleural effusion Status: Acute Assessment and plan: No evidence that this was infectious. Current Visit: Yes (3) Chronic atrial fibrillation Status: Chronic Current Visit: Yes (4) History of AAA (abdominal aortic aneurysm) repair Status: Chronic Assessment and plan: Because of the present of graft material in the aorta patient will require 4 weeks at least IV antibiotic therapy in case seeding occurred. Current Visit: Yes (5) Cardiac pacemaker in situ Status: Chronic Assessment and plan: No vegetations on pacemaker leads on echocardiogram (TTE). Current Visit: Yes (6) Dementia Status: Chronic Current Visit: Yes Qualifiers: Dementia type: Alzheimer's disease Infectious Disease - PN: Subj Interval history: Patient little more alert today, interactive, he ate a little better this morning. No specific complaints, no recurrence of fever. Infectious Disease Exam (PN) - Constitutional Vitals: Temp Pulse Resp BP Pulse Ox 98.7 F 66 18 122/59 97 11/05/16 08:00 11/05/16 08:00 11/05/16 08:00 11/05/16 08:00 11/05/16 08:00 General appearance: normal weight Exam: General appearance: no acute distress - Eye Eye exam: Present: EOMI. no icterus Pupils: Present: ALY - ENT ENT exam: no oreal exudates - Neck Neck exam: supple, no lymphadenopathy - Respiratory Respiratory exam: vesicular BS, no crepitations or wheezes - Cardiovascular Cardiovascular exam: Pacemaker site without drainage no surrounding redness or induration, regular rate and rhythm, no murmurs - GI/Abdominal GI/Abdominal exam: normal bowel sounds, soft, non-tender, no organomegaly or mass - Extremities Exam Extremities exam: no edema - Skin Skin exam: no rash Results - Labs CBC & BMP: 11/05/16 06:03 11/05/16 06:03 Lab Results: I have reviewed the past 24 hour labs (Repeat blood cultures remain negative to date also done on 01 November) - Diagnostic Findings Procedure: Ultrasound: report reviewed by me (Echo, TTE, unremarkable) Quality Measures - VTE Contraindication to Pharmacological VTE Prophylaxis: Active Bleeding Specialty Discharge - Follow Up or Referrals Follow up with: Charan Mittal MD [Physician] -
--- NOTE | 2016-11-05 10:36 | Post Interventional Procedure ---
Pre-op diagnosis: Bacteremia, pacemaker Post-op diagnosis: same Procedure: RUE PICC Flouroscopy: 0.1 min Radiologist: Kenneth Lackey Anesthesia: local Specimens: none sent Estimated blood loss: none Complications: none Condition: stable Assessment and Plan - Time spent with patient Time spent with patient: Less than 30 minutes
[2016-11-05] MEDS: POTASSIUM CHLORIDE 20 MEQ TABLET PO PRN ×3 (11:35→17:00)
[2016-11-05] MEDS: cefTRIAXone 2,000 MG in SODIUM CHLORIDE 0.9% 100 ML IV SCH (11:36)
--- NOTE | 2016-11-05 12:51 | Cardiology Progress Note ---
Jayro Sharma April RN, am scribing for, and in the presence of, Agnieszka Guillory DO 12 :51. Assessment and Plan (1) Bacteremia Status: Acute Current Visit: Yes (2) Chronic atrial fibrillation Status: Chronic Assessment and plan: Continue Pradaxa Current Visit: Yes (3) History of AAA (abdominal aortic aneurysm) repair Status: Chronic Current Visit: Yes (4) History of placement of stent in LAD coronary artery Status: Chronic Current Visit: Yes (5) History of right coronary artery stent placement Status: Chronic Current Visit: Yes (6) CAD (coronary artery disease) Status: Chronic Current Visit: Yes Qualifiers: Coronary Disease-Associated Artery/Lesion type: [place] artery [place] vs. transplanted heart: [place] heart Associated angina: without angina Qualified Code(s): I25.10 - Atherosclerotic heart disease of [place] coronary artery without angina pectoris (7) Cardiac pacemaker in situ Status: Chronic Current Visit: Yes (8) Dementia Status: Chronic Current Visit: Yes Qualifiers: Dementia type: Alzheimer's disease (9) Sick sinus syndrome Status: Chronic Current Visit: No Cardiology - PN: Subj Interval history: Torque Tester: Dr. Mittal Mr. Hamilton is seen resting in bed in no acute distress. Family member at bedside reports they gave him some Benadryl last night for his itching. This has helped and he slept well. He is still sleeping this morning, arouses somewhat but does not really wake up. Family reports he has not had any complaints. His pacemaker site looks good without any evidence of dehiscence. It does not appear to be tender. Second set of blood cultures done 11/01/2016 were negative at 3 days. Echocardiogram done yesterday with ejection fraction 55%. Potassium this morning is 3.2. I discussed with the patient's daughter at the bedside. Blood cultures from the are negative at 3 days. He has been afebrile his white count is normal. I will have interrogation of the pacemaker done today. I have reviewed Dr. Pate's notes. Nothing further to add at this time we will continue to follow Exam (Progress Note) - Constitutional Vitals: Period Temp Pulse Resp BP Sys/Villanueva Pulse Ox Last 24 Hr 97 F-99.0 F 60-79 16-20 102-123/50-75 92-100 General appearance: normal weight, no acute distress - Head Head exam: Absent: abrasion, hematoma - Eye Eye exam: Absent: periorbital swelling, laceration to eyelids - Respiratory Respiratory exam: Present: clear to auscultation bilaterally, other (Oxygen via nasal cannula). Absent: accessory muscle use, chest wall tenderness - Cardiovascular Cardiovascular exam: Present: irregular rhythm. Absent: rubs - GI/Abdominal GI/Abdominal exam: Present: normal bowel sounds, soft. Absent: distended, tenderness - Extremities Exam Extremities exam: Absent: edema - Neurological Exam Neurological exam: Present: other (He is a very drowsy) - Skin Skin exam: Present: warm, dry Result/EKG - Labs CBC & BMP: 11/05/16 06:03 11/05/16 06:03 Lab Results: I have reviewed the past 24 hour labs Labs: Laboratory Results - last 24 hr 11/05/16 11/05/16 06:03 06:03 WBC 7.2 RBC 2.89 L Hgb 9.8 L Hct 29.6 L MCV 102.4 H MCH 34 MCHC 33.1 RDW 14.3 Plt Count 155 MPV 9.2 L Neut % (Auto) 48.2 Lymph % (Auto) 37.7 [place] % (Auto) 8.2 Eos % (Auto) 5.4 Baso % (Auto) 0.4 Neut # (Auto) 3.5 Lymph # (Auto) 2.7 [place] # (Auto) 0.6 Eos # (Auto) 0.4 Baso # (Auto) 0.0 Immature Gran % 0.1 Nucleated RBC % 0.0 Immature Gran # 0.01 Nucleated RBCs # 0.00 Sodium 143 Potassium 3.2 L Chloride 106 Carbon Dioxide 27 Anion Gap 13.2 BUN 9 Creatinine 1.10 GFR Calculation 70 BUN/Creatinine Ratio 8.00 Glucose 97 Calculated Osmolality 283.0 Calcium 8.1 L Magnesium 2.2 Quality Measures - VTE Contraindication to Pharmacological VTE Prophylaxis: Active Bleeding Specialty Discharge - Follow Up or Referrals Follow up with: Charan Mittal MD [Physician] - Pastora Sharma Shea, DO, personally performed the services described in this documentation, ascribed by Komal Dial RN in my presence, and it is both accurate and complete .
--- NOTE | 2016-11-05 12:58 | Interventional Radiology Rpt ---
IR PICC line insertion, US guide vascular access Indication: Bacteremia. New pacemaker device. IV antibiotics necessary as outpatient. PICC LINE Description: A formal timeout was performed. Maximum sterile barrier technique was used. Sonographic evaluation of the right upper extremity demonstrates patent and compressible basilic vein. The upper arm was prepped and draped in sterile fashion. 3 cc 1% lidocaine was administered subcutaneously. Under sonographic guidance, a micropuncture needle was advanced into the vein. A captured sonographic image documents the position of the needle. Needle was exchanged over a wire for a peel-away sheath. A dual lumen power PICC, cut to 38 cm, was advanced over the wire until the tip was at the RA-SVC junction. The position of the catheter was confirmed with fluoroscopic guidance and an image stored in PACS. The wire and sheath were removed. Both ports of the PICC were aspirated and flushed with heparinized saline. The device was secured with a StatLock. Fluoroscopy: 0.1. Minute Impression: PICC line ready for immediate use. Routine catheter care. PROCEDURE INTERPRETED AT [facility] DEPARTMENT OF RADIOLOGY Final Report Signed by: Kenneth Lackey M.D.
--- NOTE | 2016-11-05 14:04 | Hospitalist Progress Note ---
Assessment and Plan (1) Chronic atrial fibrillation Status: Chronic Assessment and plan: Pradaxa restarted Current Visit: Yes (2) Lower GI bleed Status: Resolved Current Visit: Yes (3) Chronic anticoagulation Status: Acute Current Visit: Yes (4) Bacteremia Status: Acute Assessment and plan: Due to streptococcus Infectious Disease assisting. Echo ok. Will need 4 weeks of IV Rocephin. PICC placed today. Current Visit: Yes Hospitalist: Subjective Interval history: No acute events overnight. Patient did have a bowel movement last night. Echo with signs of endocarditis. ID plans for 4 weeks of IV antibiotics. PICC line placed today. Will need placement for rehab and IV antibiotics. Exam - Constitutional Vitals: Period Temp Pulse Resp BP Sys/Villanueva Pulse Ox Last 24 Hr 97 F-99.0 F 66-79 16-18 102-123/57-75 95-100 General appearance: normal weight - Head Head exam: Present: normocephalic, atraumatic - Eye Eye exam: Present: EOMI Pupils: Present: ALY - ENT ENT exam: Present: normal exam - Neck Neck exam: Present: normal inspection - Respiratory Respiratory exam: Present: clear to auscultation bilaterally. Absent: rhonchi, wheezes - Cardiovascular Cardiovascular exam: Present: regular rate and rhythm - GI/Abdominal GI/Abdominal exam: Present: normal bowel sounds, soft. Absent: tenderness, rebound - Extremities Exam Extremities exam: Present: normal inspection - Back Exam Back exam: Present: normal inspection - Neurological Exam Neurological exam: Present: alert - Psychiatric Psychiatric exam: Present: normal affect, normal mood - Skin Skin exam: Present: warm, intact Results - Labs CBC & BMP: 11/05/16 06:03 11/05/16 06:03 Quality Measures - VTE Contraindication to Pharmacological VTE Prophylaxis: Active Bleeding Specialty Discharge - Follow Up or Referrals Follow up with: Charan Mittal MD [Physician] -
--- NOTE | 2016-11-05 16:07 | Pulmonology Progress Note ---
Pulmonary - PN: Subj Interval history: The patient is an 86-year-old white man that recently got a pacemaker. He has some chronic heart disease along with dementia and hypertension and pernicious anemia. He was placed on anticoagulation because of his arrhythmias but came in with some GI bleeding. He is doing a little better with that but did get some volume and now has a right pleural effusion. He tolerated the thoracentesis last week and his breathing is better. Today he looks much better he is not having any shortness of breath now. His itching seems to be better. He is more alert and eating fairly well. He will probably go to a swing bed and continue IV antibiotics. Exam (Progress Note) - Constitutional Vitals: Period Temp Pulse Resp BP Sys/Villanueva Pulse Ox Last 24 Hr 97 F-98.7 F 66-79 16-18 102-122/59-75 95-100 Exam: General appearance: normal weight, no acute distress, he still looks reasonably comfortable lying in bed. He looks like he feels better today. - Head Head exam: Present: normal inspection, normocephalic - Eye Eye exam: Present: EOMI. Absent: scleral icterus Pupils: Present: ALY - ENT ENT exam: Present: normal exam - Neck Neck exam: Present: normal inspection. Absent: lymphadenopathy, thyromegaly - Respiratory Respiratory exam: Present: He has good breath sounds bilaterally without any definite rales. His lungs are basically clear now. - Cardiovascular Cardiovascular exam: Present: irregular rhythm. Absent: gallop, systolic murmur - GI/Abdominal GI/Abdominal exam: Present: normal bowel sounds, soft. Absent: organomegaly, tenderness - Extremities Exam Extremities exam: Absent: calf tenderness, edema - Neurological Exam Neurological exam: Present: He is more alert today. - Psychiatric Psychiatric exam: Present: normal affect, normal mood - Skin Skin exam: Present: warm, dry. He has not had any definite rash or whelps. Results - Labs CBC & BMP: 11/05/16 06:03 11/05/16 06:03 Assessment and Plan (1) Pleural effusion Status: Acute Assessment and plan: The patient has developed a right pleural effusion and had a thoracentesis last week. The pleural fluid is a transudate. Volume status looks better and is not having any shortness of breath now. He will continue the antibiotics at a swing bed. Please call if we can help.Thanks Current Visit: Yes (2) Atrial fibrillation with RVR Status: Chronic Assessment and plan: He has a pacemaker in his heart rate is better. Current Visit: No (3) Dementia Status: Chronic Assessment and plan: The patient is more alert today and looks more comfortable. Current Visit: Yes Qualifiers: Dementia type: Alzheimer's disease (4) CAD (coronary artery disease) Status: Chronic Assessment and plan: Patient has known coronary artery disease and likely some cardiac dysfunction. He probably does have some mild heart failure. His breathing is better at present. Current Visit: Yes Qualifiers: Coronary Disease-Associated Artery/Lesion type: [place] artery [place] vs. transplanted heart: [place] heart Associated angina: without angina Qualified Code(s): I25.10 - Atherosclerotic heart disease of [place] coronary artery without angina pectoris (5) Lower GI bleed Status: Resolved Assessment and plan: The patient's bleeding has been controlled so far now. He has not had any further signs of bleeding. His hematocrit is 30 and stable. Current Visit: Yes (6) Cardiac pacemaker in situ Status: Chronic Assessment and plan: Patient recently had a pacemaker placed. Current Visit: Yes (7) Positive blood culture Status: Acute Assessment and plan: The patient has a strep species growing in his blood. He is getting antibiotics. His repeat blood cultures have been negative. He will continue with IV antibiotics. Current Visit: Yes (8) Chronic anticoagulation Status: Acute Assessment and plan: The anticoagulation is being held at the present time. Current Visit: Yes Specialty Discharge - Follow Up or Referrals Follow up with: Charan Mittal MD [Physician] -
[2016-11-05] MEDS: TIMOLOL 0.5% OPH SOLN 5 ML BOTTLE BOTH EYES SCH (21:36)
[2016-11-05] MEDS: diphenhydrAMINE CAP 25 MG CAPSULE PO PRN (21:37)
[2016-11-06] MEDS: ALBUTEROL/IPRATROPIUM 3 ML NEB RESP TX SCH ×2 (03:05→07:28)
[2016-11-06] MEDS: POTASSIUM CHLORIDE 20 MEQ TABLET PO PRN (06:43)
[2016-11-06] MEDS: diphenhydrAMINE CAP 25 MG CAPSULE PO PRN (07:06)
[2016-11-06 07:27] LABS: Osmolality,Calculated 276.4 MOS/KG (273-304); Potassium 3.8 MMOL/L (3.5-5.1)
[2016-11-06] MEDS: TAMSULOSIN 0.4 MG CAPSULE PO SCH (08:29)
[2016-11-06] MEDS: MEMANTINE 10 MG TABLET PO SCH (08:29)
[2016-11-06] MEDS: LEVOTHYROXINE 75 MCG TABLET PO SCH (08:29)
[2016-11-06] MEDS: ATORVASTATIN 10 MG TABLET PO SCH (08:29)
[2016-11-06] MEDS: METOPROLOL TARTRATE 100 MG TABLET PO SCH (08:29)
[2016-11-06] MEDS: RIVASTIGMINE 1.5 MG CAPSULE PO SCH (08:29)
[2016-11-06] MEDS: DABIGATRAN 75 MG CAPSULE PO SCH (08:29)
[2016-11-06] MEDS: DILTIAZEM CD 180 MG CAPSULE PO SCH (08:29)
[2016-11-06] MEDS: FAMOTIDINE 20 MG TABLET PO SCH (08:29)
[2016-11-06] MEDS: POLYETHYLENE GLYCOL POWDER 17 GM PACK PO SCH (08:30)
[2016-11-06] MEDS: OMEGA 3 ACID ETHYL ESTERS 1 GM CAPSULE PO SCH (08:30)
--- NOTE | 2016-11-06 09:45 | Discharge Summary ---
Hospital Course - Hospital Course Hospital Course: Mr. Hamilton is a 86 year old male with past medical history of dementia, coronary artery disease, AAA status repair, A. fib, sick sinus syndrome with pacemaker, hypertension, hypothyroidism, pernicious anemia, glaucoma that presented with a chief complaint of rectal bleeding. Onset sudden. Duration several hours. Quality bright red blood, mostly liquid with some clotting. No aggravating or relieving factors. No associated pain or vomiting. Patient had dementia and was unable to contribute significantly to his own history, he was disoriented. His and daughter at the bedside and assist with this history. He just had a pacemaker put in on Friday for sick sinus syndrome. His Pradaxa was held perioperatively and restarted the day prior. He had never had a GI bleed before. Patient was admitted to the hospitalist service with a gastrointestinal bleed on Pradaxa. He underwent an EGD with gastroesophageal reflux disease and colonoscopy, with no source of bleeding identified. Pradaxa was restarted at a lower dose per cardiology. Her hospitalization was complicated by a pleural effusion requiring thoracentesis. His blood cultures grew streptococcus anginosus. Infectious Disease was consulted, recommended four weeks of IV Rocephin. A PICC line was placed yesterday. Patient has now reached maximum benefit of inpatient stay and will be discharged to swing bed. - Time spent with patient Time with patient DS: Less than 30 minutes Diagnosis - Discharge Diagnosis (1) Chronic atrial fibrillation Status: Chronic (2) Lower GI bleed Status: Resolved (3) Chronic anticoagulation Status: Chronic (4) Bacteremia Status: Resolved Specialty Discharge - Follow Up or Referrals Follow up with: Charan Mittal MD [Physician] - Sarah Petit MD [Physician] - 2 Weeks Discharge Plan - Discharge Data Disposition: Disch/Xfer to Snf Condition at Discharge: Stable Discharge Diet: advance to your usual diet Activity: resume usual activities as tolerated Hygiene: no restrictions Weight Bearing at Discharge: weight bear as tolerated Contact your physician if you experience:: fever over 101 - Discharge Medications New Famotidine Tab [Pepcid Tab] 20 mg PO BID #60 tablet cefTRIAXone [Rocephin] 2,000 mg IV Q24H #23 vial Dabigatran [Pradaxa] 75 mg PO BID #60 capsule Continue Cyanocobalamin Inj [Vitamin B12 Inj] 1,000 mcg IM Q30D Levothyroxine Tab [Synthroid Tab] 75 mcg PO DAILY Memantine [Namenda] 10 mg PO BID [place]-3S/Dha/Epa/Fish Oil [Fish Oil 1,200 mg Softgel] 1 each PO DAILY Rivastigmine Tartrate [Rivastigmine] 1.5 mg PO BID Tamsulosin HCl 0.4 mg PO DAILY Diltiazem Cd Cap [Cardizem CD] 180 mg PO BID #60 capsule Metoprolol Tartrate Tab [Lopressor Tab] 100 mg PO BID #60 tablet Atorvastatin [Lipitor] 10 mg PO DAILY Timolol 0.5% Oph Soln [Timoptic 0.5%] 1 drop BOTH EYES BEDTIME ACETAMIN/diphenhydrAMIN 500-25 [Tylenol PM] 2 tablet PO BEDTIME Discontinued Aspirin [Ecotrin] 81 mg PO DAILY Dabigatran [Pradaxa] 150 mg PO BID - Follow Up or Referral Follow Up: Charan Mittal MD [Physician] - - Forms/Instructions Exam - Constitutional Vitals: Period Temp Pulse Resp BP Sys/Villanueva Pulse Ox Last 24 Hr 97.8 F-100 F 61-83 17-21 99-119/43-68 94-100 General appearance: normal weight - Head Head exam: Present: normocephalic, atraumatic - Eye Eye exam: Present: EOMI Pupils: Present: ALY - ENT ENT exam: Present: normal exam - Neck Neck exam: Present: normal inspection - Respiratory Respiratory exam: Present: clear to auscultation bilaterally. Absent: rhonchi, wheezes - Cardiovascular Cardiovascular exam: Present: regular rate and rhythm - GI/Abdominal GI/Abdominal exam: Present: normal bowel sounds, soft. Absent: tenderness, rebound - Extremities Exam Extremities exam: Present: normal inspection - Back Exam Back exam: Present: normal inspection - Neurological Exam Neurological exam: Present: alert - Psychiatric Psychiatric exam: Present: normal affect, normal mood - Skin Skin exam: Present: warm, intact Discharge Results Procedures and tests throughout hospitalization: Pending Orders 11/01/16 11:54 Cytology Request Routine 11/01/16 16:16 Blood Culture Routine Labs on day of discharge: Labs from last 24 hours 11/06/16 06:36 Sodium 140 Potassium 3.8 Chloride 105 Carbon Dioxide 29 Anion Gap 9.8 BUN 10 Creatinine 1.00 GFR Calculation 80 BUN/Creatinine Ratio 10.00 Glucose 89 Calculated Osmolality 276.4 Calcium 8.0 L Preliminary micro results at discharge 11/01/16 16:16 Blood Culture - Preliminary Blood No growth at 3 days 11/01/16 16:16 Blood Culture - Preliminary Blood No growth at 3 days DS: Provider Date of admission: 10/26/16 23:04 Primary care physician: . No PCP Attending physician on admission: Todd Goddard MD Consults: 10/27/16 13:27 Consult to Physician [CONS] Routine Comment: [facility] Consulting Provider: Dustin Farrar Consulting Provider Notified: Yes Consult to Specialist Group: Gastroenterology When should Consulting Provider be notified: Now Person Notified: Dr Yepez Date Notified: 10/27/16 Time Notified: 14:10 Consult Notification Comment: LEFT MESSAGE OF CONSULT AT 0910 10/27/16 15:20 Consult to Physician [CONS] Routine Comment: afib, pradaxa, GI bleed Consulting Provider: Kenneth Ibrahim Consult to Specialist Group: Cardiology When should Consulting Provider be notified: Now Person Notified: Dr Ibrahim Date Notified: 10/27/16 Time Notified: 15:56 Consult Notification Comment: will see him 10/30/16 10:16 Consult to Case Mgmt/Social Srvs [CONS] Routine Reason for Case Mgmt/Social Srvs: Swingbed/SNF/Fdc Consult to Occupational Therapy [CONS] Routine Reason for Occupational Therapy: Evaluate and Treat Consult to Pharmacy [CONS] Routine Reason for Pharmacy Consult: Dose/Manage Vancomycin Consult to Physical Therapy [CONS] Routine Reason for Physical Therapy: Evaluate and Treat 10/31/16 13:12 Consult to Physician [CONS] Routine Comment: Right lung pneumonia with bacteremia Consulting Provider: Alden Costello Consult to Specialist Group: Pulmonology Person Notified: AMMY Date Notified: 10/31/16 Time Notified: 13:30 11/03/16 11:00 Consult to Physician [CONS] Routine Comment: Strep bacteremia Consulting Provider: Consult to Specialist Group: Internal Medicine When should Consulting Provider be notified: In am Person Notified: Jessi Date Notified: 11/04/16 Time Notified: 09:27 11/04/16 10:34 Consult to Case Mgmt/Social Srvs [CONS] Routine Reason for Case Mgmt/Social Srvs: Infusion Center Consult Comment: Ceftriaxone required through at least 11/05/16 09:16 Consult to Case Mgmt/Social Srvs [CONS] Routine Reason for Case Mgmt/Social Srvs: Other Consult Comment: ceftriaxone 2g IV daily, last dose on November 28, 2016 Discharging clinician: Rajan Zapata MD
--- NOTE | 2016-11-06 10:25 | Event Note ---
Patient doing fairly okay only problem has been itching. No fever. Tolerating ceftriaxone. Was accepted to swing bed and is to be transferred there today. I will see him in the office in 2 weeks.
[2016-11-06] MEDS: cefTRIAXone 2,000 MG in SODIUM CHLORIDE 0.9% 100 ML IV SCH (10:45)
[2016-11-06 15:22] VITALS: BP 118/68
== END 2016-11-06 12:15 | disposition swing bed (61) | DRG 377 ==
LOC: EDBD → EDUNIT# → N.ED 17:41 → SUATTDRO 23:04 → N.EDINP 23:04 → N.TELEN 23:40 → N.5E 10-31 15:55
PROVIDERS: ADMIT Internal Medicine Geriatric Medicine; ATTEND Internal Medicine